=== PATIENT | female | born 1970 | race American Indian/Alaskan Native ===

== ENCOUNTER 2020-12-09 10:59 | Inpatient (IN) | payer SELFPAY ==
--- NOTE | 2020-12-09 11:35 | Emergency Department Report ---
ED General Adult HPI - General Chief complaint: Medical Clearance Stated complaint: medical clearance PUI?: No Time Seen by Provider: 12/09/20 11:25 Source: patient, RN notes reviewed Mode of arrival: Ambulatory Limitations: No Limitations - History of Present Illness Initial comments: The patient is a 50-year-old female. She is not known to myself previously. The patient reports that she is an alcoholic. The patient presents to the ER today with complaints of request for medical clearance. The patient states that she has had a rash and lesions on her bilateral lower extremities, which have been present for around 3 months. Her outpatient primary care doctor treated her presumptively for "folliculitis", with hydroxy zine, and Bactrim. However, the lesions have been constant. Lesions are pruritic. The patient also reports having outpatient laboratory studies drawn, which "showed low blood counts." The patient was thus referred to the emergency room for clearance. The patient denies headache, neck pain, chest pain, and abdominal pain. She is nauseous but not vomiting. She denies hematemesis and bright red blood per rectum. She denies urinary symptoms. She is not COVID-19 vaccinated. She drinks on a daily basis. Her last alcoholic beverage was yesterday. She is not homicidal or suicidal. -: Gradual, month(s) Location: left, right, lower extremity Severity scale (0 -10): 8 Quality: other (Bilateral lower extremity lesions are paretic) Consistency: intermittent Improves with: none Worsens with: none - Related Data Allergies Allergy/AdvReac Type Severity Reaction Status Date / Time No Known Allergies Allergy Unverified 12/09/20 11:18 ED Review of Systems ROS: Stated complaint: NUMBNESS IN LEGS Other details as noted in HPI Constitutional: denies: fever Eyes: denies: eye discharge ENT: denies: epistaxis Respiratory: denies: cough Cardiovascular: denies: chest pain Gastrointestinal: nausea, vomiting. denies: abdominal pain, hematemesis, melena, hematochezia Musculoskeletal: denies: myalgia Skin: rash, lesions, pruritus Neurological: weakness ED Past Medical Hx - Past Medical History Previous Medical History?: No - Social History Smoking Status: Current Every Day Smoker Substance Use Type: Alcohol ED Physical Exam - General Limitations: No Limitations General appearance: alert, in no apparent distress - Head Head exam: Present: atraumatic, normocephalic - Eye Eye exam: Present: normal appearance, EOMI. Absent: nystagmus - ENT ENT exam: Present: normal exam, normal orophraynx, mucous membranes moist, normal external ear exam - Neck Neck exam: Present: normal inspection, full ROM. Absent: tenderness, meningi smus - Respiratory Respiratory exam: Present: normal lung sounds bilaterally. Absent: respiratory distress, wheezes, rales, rhonchi, stridor, decreased breath sounds - Cardiovascular Cardiovascular Exam: Present: normal rhythm, tachycardia, normal heart sounds. Absent: bradycardia, irregular rhythm, systolic murmur, diastolic murmur, rubs, gallop - GI/Abdominal GI/Abdominal exam: Present: soft. Absent: distended, tenderness, guarding, rebound, rigid, pulsatile mass - Extremities Exam Extremities exam: Present: full ROM, other (2+ pulses noted in the bilateral upper and lower extremities. There is no palpable cord. negative Homans sign. Muscular compartments are soft. The pelvis is stable.). Absent: normal inspection (Nontender macules noted on the bilateral soles of the feet. There are nontender nonblanching papules or macules noted on the lower extremities and upper extremity), tenderness, pedal edema, calf tenderness - Back Exam Back exam: Present: normal inspection, full ROM. Absent: tenderness, CVA tenderness (R), CVA tenderness (L), paraspinal tenderness, vertebral tenderness - Neurological Exam Neurological exam: Present: alert, oriented X3, normal gait, other (No facial droop. Tongue midline. Extraocular movements intact bilaterally. Facial sensation intact to light touch in V1, V2, V3 distribution bilaterally. 5 and a 5 strength in 4 extremities. Sensation intact to light touch in 4 extremities.). Absent: motor sensory deficit - Psychiatric Psychiatric exam: Present: normal affect, normal mood - Skin Skin exam: Present: warm, rash ED Course Vital Signs 12/09/20 12/09/20 12/09/20 11:05 11:08 11:18 Temperature 98 F Pulse Rate 103 H Respiratory 20 19 Rate Blood Pressure 128/89 [Right] O2 Sat by Pulse 100 100 99 Oximetry 12/09/20 11:30 Temperature 98.0 F Pulse Rate 99 H Respiratory Rate Blood Pressure 136/99 [Right] O2 Sat by Pulse Oximetry - Reevaluation(s) Reevaluation #1: 12/09/20 12:44 Differential diagnosis, including but not limited to: Alcoholism, cirrhosis, hepatitis, syphilis, HIV, medical clearance, dehydration, electrolyte derangement, Assessment and plan: 50-year-old female, who is afebrile, clinically sober, with a GCS of 15, who presents to the ER today with a request for medical clearance. First complaint is nontender pruritic nonblanching lesions on her bilateral lower and upper extremities, also found to have painless macules on her bilateral feet. With the patient's permission, with lamination builder present, performed risk analysis for syphilis, HIV, and STI. The patient reports no intravenous drug use, reports that she is sexually active with 1 person. Has not been tested for hepatitis, syphilis, or HIV recently that she is aware of. Given that the rash is present for 3 months, does not appear to be acutely superinfected, does not appear to be acutely decompensated, outpatient follow-up at this time. Screening laboratory studies were obtained, demonstrated hypochloremia, hypokalemia, dehydration, and metabolic acidosis. EKG is pending at this time. IV fluids, potassium supplementation ordered. Banana bag ordered. Have recommended admission to the medical service for treatment of hypokalemia, dehydration, and hypochloremia. I discussed this with the patient and her lamination builder. The patient is agreeable to this plan of care. Hospital physician, Dr. Helen Rodriguez to admit patient to the medical service. Transaminitis is likely secondary to chronic alcoholism. 12/09/20 12:44 12/09/20 14:22 Patient reports not being able to tolerate pills. She has no facial numbness on my examination; V1, V2, V3 intact bilaterally. Nevertheless, she is not able to tolerate potassium chloride tablets. Contacted the pharmacy, and discussed with time, the pharmacist. Have verbally requested 40 M EQ of KCl liquid form, which the pharmacy tells me existing formulary, but I am not able to find it on C4[facility]. The pharmacist is also not able to find it. However, he tells me that he is able to accept a verbal order over the phone, and he will be able to shoot down 40 M EQ KCl in liquid form for the patient's consumption treatment. 12/09/20 15:18 Additional history obtained from nursing team, apparently, the patient endorsed difficulty with walking over the past few weeks. There is no history of trauma. On my examination, the patient has a nonfocal motor examination. 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 However, will order noncontrast CT scan of the brain. ED Medical Decision Making - Lab Data Result diagrams: 12/09/20 11:42 12/09/20 11:42 Vital Signs 12/09/20 12/09/20 12/09/20 11:05 11:08 11:18 Temperature 98 F Pulse Rate 103 H Respiratory 20 19 Rate Blood Pressure 128/89 [Right] O2 Sat by Pulse 100 100 99 Oximetry 12/09/20 11:30 Temperature 98.0 F Pulse Rate 99 H Respiratory Rate Blood Pressure 136/99 [Right] O2 Sat by Pulse Oximetry Lab Results 12/09/20 12/09/20 12/09/20 Range/Units 11:42 11:42 11:42 WBC 14.4 H (4.5-11.0) K/mm3 RBC 3.86 (3.65-5.03) M/mm3 Hgb 11.8 (10.1-14.3) gm/dl Hct 37.1 (30.3-42.9) % MCV 96 (79-97) fl MCH 31 (28-32) pg MCHC 32 (30-34) % RDW 16.2 H (13.2-15.2) % Plt Count 342 (140-440) K/mm3 Lymph % (Auto) 14.5 (13.4-35.0) % [place] % (Auto) 6.2 (0.0-7.3) % Eos % (Auto) 0.1 (0.0-4.3) % Baso % (Auto) 0.3 (0.0-1.8) % Lymph # (Auto) 2.1 (1.2-5.4) K/mm3 [place] # (Auto) 0.9 H (0.0-0.8) K/mm3 Eos # (Auto) 0.0 (0.0-0.4) K/mm3 Baso # (Auto) 0.0 (0.0-0.1) K/mm3 Seg Neutrophils % 78.9 H (40.0-70.0) % Seg Neutrophils # 11.3 H (1.8-7.7) K/mm3 PT 15.7 H (12.2-14.9) Sec. INR 1.13 (0.87-1.13) APTT 34.8 (24.2-36.6) Sec. Sodium 134 L (137-145) mmol/L Potassium 2.3 L* (3.6-5.0) mmol/L Chloride 82.1 L (98-107) mmol/L Carbon Dioxide 33 H (22-30) mmol/L Anion Gap 21 mmol/L BUN 5 L (7-17) mg/dL Creatinine 0.3 L (0.6-1.2) mg/dL Estimated GFR > 60 ml/min BUN/Creatinine Ratio 17 % Glucose 97 (65-100) mg/dL Calcium 8.6 (8.4-10.2) mg/dL Magnesium 2.00 (1.7-2.3) mg/dL Total Bilirubin 1.20 (0.1-1.2) mg/dL AST 84 H (5-40) units/L ALT 29 (7-56) units/L Alkaline Phosphatase 259 H (35-129) units/L Total Creatine Kinase 26 L (30-135) units/L Total Protein 6.8 (6.3-8.2) g/dL Albumin 3.0 L (3.9-5) g/dL Albumin/Globulin Ratio 0.8 % TSH (0.270-4.200) mlU/mL HCG, Quant (0-4) mIU/mL Salicylates (2.8-20.0) mg/dL Acetaminophen (10.0-30.0) ug/mL 12/09/20 12/09/20 12/09/20 Range/Units 11:42 11:42 11:42 WBC (4.5-11.0) K/mm3 RBC (3.65-5.03) M/mm3 Hgb (10.1-14.3) gm/dl Hct (30.3-42.9) % MCV (79-97) fl MCH (28-32) pg MCHC (30-34) % RDW (13.2-15.2) % Plt Count (140-440) K/mm3 Lymph % (Auto) (13.4-35.0) % [place] % (Auto) (0.0-7.3) % Eos % (Auto) (0.0-4.3) % Baso % (Auto) (0.0-1.8) % Lymph # (Auto) (1.2-5.4) K/mm3 [place] # (Auto) (0.0-0.8) K/mm3 Eos # (Auto) (0.0-0.4) K/mm3 Baso # (Auto) (0.0-0.1) K/mm3 Seg Neutrophils % (40.0-70.0) % Seg Neutrophils # (1.8-7.7) K/mm3 PT (12.2-14.9) Sec. INR (0.87-1.13) APTT (24.2-36.6) Sec. Sodium (137-145) mmol/L Potassium (3.6-5.0) mmol/L Chloride (98-107) mmol/L Carbon Dioxide (22-30) mmol/L Anion Gap mmol/L BUN (7-17) mg/dL Creatinine (0.6-1.2) mg/dL Estimated GFR ml/min BUN/Creatinine Ratio % Glucose (65-100) mg/dL Calcium (8.4-10.2) mg/dL Magnesium (1.7-2.3) mg/dL Total Bilirubin (0.1-1.2) mg/dL AST (5-40) units/L ALT (7-56) units/L Alkaline Phosphatase (35-129) units/L Total Creatine Kinase (30-135) units/L Total Protein (6.3-8.2) g/dL Albumin (3.9-5) g/dL Albumin/Globulin Ratio % TSH 1.150 (0.270-4.200) mlU/mL HCG, Quant (0-4) mIU/mL Salicylates 1.9 L (2.8-20.0) mg/dL Acetaminophen 5.0 L (10.0-30.0) ug/mL 12/09/20 Range/Units 11:42 WBC (4.5-11.0) K/mm3 RBC (3.65-5.03) M/mm3 Hgb (10.1-14.3) gm/dl Hct (30.3-42.9) % MCV (79-97) fl MCH (28-32) pg MCHC (30-34) % RDW (13.2-15.2) % Plt Count (140-440) K/mm3 Lymph % (Auto) (13.4-35.0) % [place] % (Auto) (0.0-7.3) % Eos % (Auto) (0.0-4.3) % Baso % (Auto) (0.0-1.8) % Lymph # (Auto) (1.2-5.4) K/mm3 [place] # (Auto) (0.0-0.8) K/mm3 Eos # (Auto) (0.0-0.4) K/mm3 Baso # (Auto) (0.0-0.1) K/mm3 Seg Neutrophils % (40.0-70.0) % Seg Neutrophils # (1.8-7.7) K/mm3 PT (12.2-14.9) Sec. INR (0.87-1.13) APTT (24.2-36.6) Sec. Sodium (137-145) mmol/L Potassium (3.6-5.0) mmol/L Chloride (98-107) mmol/L Carbon Dioxide (22-30) mmol/L Anion Gap mmol/L BUN (7-17) mg/dL Creatinine (0.6-1.2) mg/dL Estimated GFR ml/min BUN/Creatinine Ratio % Glucose (65-100) mg/dL Calcium (8.4-10.2) mg/dL Magnesium (1.7-2.3) mg/dL Total Bilirubin (0.1-1.2) mg/dL AST (5-40) units/L ALT (7-56) units/L Alkaline Phosphatase (35-129) units/L Total Creatine Kinase (30-135) units/L Total Protein (6.3-8.2) g/dL Albumin (3.9-5) g/dL Albumin/Globulin Ratio % TSH (0.270-4.200) mlU/mL HCG, Quant 2.97 (0-4) mIU/mL Salicylates (2.8-20.0) mg/dL Acetaminophen (10.0-30.0) ug/mL - EKG Data -: EKG Interpreted by Mt EKG shows normal: sinus rhythm Rate: normal - EKG Data When compared to previous EKG there are: previous EKG unavailable 12/09/20 12:47 The EKG is interpreted at 12: 4 4 Sinus rhythm, rate 90 bpm. There is a leftward axis deviation. There is a left anterior fascicular block. There is a normal P wave axis. There is motion artifact. Atrial enlargement. Abnormal EKG. Not a STEMI. No prior for [facility] analion. Critical care attestation.: If time is entered above; I have spent that time in minutes in the direct care of this critically ill patient, excluding procedure time. ED Disposition Clinical Impression: Hypokalemia, Transaminitis, Hypochloremia, Dehydration, Skin rash Disposition: ADMITTED INPATIENT Is pt being admited?: Yes Does the pt Need Aspirin: No Condition: Good
[2020-12-09 12:20] LABS: Basophils % (Auto) 0.3 % (0.0-1.8); Eosinophils % (Auto) 0.1 % (0.0-4.3); Hematocrit 37.1 % (30.3-42.9); Hemoglobin 11.8 gm/dl (10.1-14.3); Lymphocytes # (Auto) 2.1 K/mm3 (1.2-5.4); Lymphocytes % (Auto) 14.5 % (13.4-35.0); Mean Corpuscular HGB Conc 32 % (30-34); Mean Corpuscular Volume 96 fl (79-97); Monocytes # (Auto) 0.9 K/mm3 (0.0-0.8); Monocytes % (Auto) 6.2 % (0.0-7.3); Platelet Count 342 K/mm3 (140-440); Red Blood Count 3.86 M/mm3 (3.65-5.03); Red Cell Distribution Width 16.2 % (13.2-15.2)
[2020-12-09 12:25] LABS: Alanine Aminotransferase 29 units/L (7-56); Blood Urea Nitrogen 5 mg/dL (7-17); Calcium 8.6 mg/dL (8.4-10.2); Hemolysis Index 22
[2020-12-09 12:26] LABS: BUN/Creatinine Ratio 17
[2020-12-09 12:37] LABS: INR 1.13 (0.87-1.13)
[2020-12-09] MEDS ORDERED: POTASSIUM CHLORIDE ER 20 MEQ TAB PO ONE (12:37)
[2020-12-09] MEDS ORDERED: LACTATED RINGERS 1,000 ML IV ONE (12:37)
[2020-12-09 12:38] LABS: Partial Thromboplastin Time 34.8 Sec. (24.2-36.6)
[2020-12-09] MEDS ORDERED: LORazepam 2 MG/ML VIAL IV PRN ×2 (12:43)
[2020-12-09] MEDS ORDERED: THIAMINE 100 MG, FOLIC ACID 1 MG, MULTIPLE VITAMIN INJ, ADULT 10 ML in SODIUM CHLORIDE ... IV ONE (13:37)
[2020-12-09] MEDS: POTASSIUM CHLORIDE 10 MEQ 10 MEQ/100 ML BAG IV SCH ×4 (14:15→20:22)
[2020-12-09] MEDS ORDERED: POTASSIUM CHLORIDE 20 MEQ PACKET PO ONE (15:00)
--- NOTE | 2020-12-09 16:41 | Cat Scan Report ---
CT HEAD WITHOUT CONTRAST INDICATION / CLINICAL INFORMATION: weakness, reportely cant walk. TECHNIQUE: All CT scans at this location are performed using CT dose reduction for ALARA by means of automated e xposure control. COMPARISON: None available. FINDINGS: HEMORRHAGE: No evidence of intracranial hemorrhage or extra-axial fluid collection. EXTRA-AXIAL SPACES: Cortical sulci, sylvian fissures and basilar cisterns have an unremarkable appear ance. VENTRICULAR SYSTEM: The third and lateral ventricles are of normal size and configuration. CEREBRAL PARENCHYMA: No areas of abnormal brain parenchymal attenuation are identified. There is no i ndication of recent infarction. MIDLINE SHIFT OR HERNIATION: There is no mass effect. CEREBELLUM / BRAINSTEM: Brainstem and cerebellum have an unremarkable appearance. MIDLINE STRUCTURES:No abnormalities of the pituitary gland or pineal region are identified. INTRACRANIAL VESSELS:No abnormalities are identified on this noncontrast head CT. ORBITS: visualized portions of the orbits have an unremarkable appearance. SOFT TISSUES of HEAD: No significant abnormality. CALVARIUM: Evaluation of bone windows reveals no abnormalities. PARANASAL SINUSES / MASTOID AIR CELLS: Visualized portions of the paranasal sinuses are free from inf lammatory mucosal disease. Mastoid air cells are normally pneumatized. ADDITIONAL FINDINGS: Note is made of ossification of the falx in the anterior interhemispheric fissur e.. IMPRESSION: 1. No acute intracranial abnormality. Signer Name: Vu Glover MD Signed: 12/09/2020 4:37 PM Workstation Name: [id number]
[2020-12-09] MEDS ORDERED: METOCLOPRAMIDE 10 MG/2 ML INJ IV PRN (17:51)
[2020-12-09] MEDS ORDERED: oxyCODONE /ACETAMINOPHEN 5-325MG TAB PO PRN (17:51)
[2020-12-09] MEDS ORDERED: ONDANSETRON 4 MG/2 ML INJ IV PRN (17:51)
[2020-12-09] MEDS ORDERED: HALOPERIDOL LACTATE 5 MG/1 ML INJ IV PRN (17:54)
--- NOTE | 2020-12-09 17:56 | History and Physical Report ---
History of Present Illness Date of examination: 12/09/20 Date of admission: 12/09/20 12:47 Chief complaint: Unsteady while walking History of present illness: The patient states that she has had a rash and lesions on her bilateral lower extremities, which have been present for around 3 months. Her outpatient primary care doctor treated her presumptively for "folliculitis", with hydroxyzine, and Bactrim. However, the lesions have been constant. Lesions are pruritic. The patient also reports having outpatient laboratory studies drawn, which "showed low blood counts." The patient was thus referred to the emergency room for clearance. The patient denies headache, neck pain, chest pain, and abdominal pain. She is nauseous but not vomiting. She denies hematemesis and bright red blood per rectum. She denies urinary symptoms. She is not COVID-19 vaccinated. She drinks on a daily basis. Her last alcoholic beverage was yesterday. Also excessive alcohol use the last 20 years. Patient had 2 mixed drinks last night. Alcohol breath during my examination. Feels unsteady while walking Review of Systems ROS: Stated complaint: NUMBNESS IN LEGS Other details as noted in HPI Constitutional: denies: fever Eyes: denies: eye discharge ENT: denies: epistaxis Respiratory: denies: cough Cardiovascular: denies: chest pain Gastrointestinal: nausea, vomiting. denies: abdominal pain, hematemesis, melena, hematochezia Musculoskeletal: denies: myalgia Skin: rash, lesions, pruritus Neurological: weakness Medications and Allergies Allergies Allergy/AdvReac Type Severity Reaction Status Date / Time No Known Allergies Allergy Unverified 12/09/20 11:18 Active Meds: Active Medications Lorazepam (Lorazepam 2 Mg/Ml Vial) 2 mg IV Q1HR PRN PRN Reason: CIWA-Ar 8-15 Lorazepam (Lorazepam 2 Mg/Ml Vial) 4 mg IV Q1HR PRN PRN Reason: CIWA-Ar 16-25 Lorazepam (Lorazepam 2 Mg/Ml Vial) 4 mg IV Q15MIN PRN PRN Reason: CIWA-Ar >25 Exam - Constitutional Vitals: Temp Pulse Resp BP Pulse Ox 98.0 F 99 H 19 136/99 99 12/09/20 11:30 12/09/20 11:30 12/09/20 11:08 12/09/20 11:30 12/09/20 11:18 General appearance: Present: no acute distress, well-nourished - EENT Eyes: Present: PERRL ENT: hearing intact, clear oral mucosa - Neck Neck: Present: supple, normal ROM - Respiratory Respiratory effort: normal Respiratory: bilateral: CTA - Cardiovascular Heart Sounds: Present: S1 & S2. Absent: rub, click - Extremities Extremities: pulses symmetrical, No edema Peripheral Pulses: within normal limits - Abdominal General gastrointestinal: Present: soft, non-tender, non-distended, normal bowel sounds Female genitourinary: Present: normal - Integumentary Integumentary: Present: clear, warm, dry - Musculoskeletal Musculoskeletal: gait normal, strength equal bilaterally - Psychiatric Psychiatric: appropriate mood/affect, intact judgment & insight - Neurologic Neurologic: CNII-XII intact, moves all extremities Results - Labs CBC & Chem 7: 12/10/20 04:17 12/10/20 04:17 Labs: Laboratory Last Values WBC 14.4 K/mm3 (4.5-11.0) H 12/09/20 11:42 RBC 3.86 M/mm3 (3.65-5.03) 12/09/20 11:42 Hgb 11.8 gm/dl (10.1-14.3) 12/09/20 11:42 Hct 37.1 % (30.3-42.9) 12/09/20 11:42 MCV 96 fl (79-97) 12/09/20 11:42 MCH 31 pg (28-32) 12/09/20 11:42 MCHC 32 % (30-34) 12/09/20 11:42 RDW 16.2 % (13.2-15.2) H 12/09/20 11:42 Plt Count 342 K/mm3 (140-440) 12/09/20 11:42 Lymph % (Auto) 14.5 % (13.4-35.0) 12/09/20 11:42 [place] % (Auto) 6.2 % (0.0-7.3) 12/09/20 11:42 Eos % (Auto) 0.1 % (0.0-4.3) 12/09/20 11:42 Baso % (Auto) 0.3 % (0.0-1.8) 12/09/20 11:42 Lymph # (Auto) 2.1 K/mm3 (1.2-5.4) 12/09/20 11:42 [place] # (Auto) 0.9 K/mm3 (0.0-0.8) H 12/09/20 11:42 Eos # (Auto) 0.0 K/mm3 (0.0-0.4) 12/09/20 11:42 Baso # (Auto) 0.0 K/mm3 (0.0-0.1) 12/09/20 11:42 Seg Neutrophils % 78.9 % (40.0-70.0) H 12/09/20 11:42 Seg Neutrophils # 11.3 K/mm3 (1.8-7.7) H 12/09/20 11:42 PT 15.7 Sec. (12.2-14.9) H 12/09/20 11:42 INR 1.13 (0.87-1.13) 12/09/20 11:42 APTT 34.8 Sec. (24.2-36.6) 12/09/20 11:42 Sodium 134 mmol/L (137-145) L 12/09/20 11:42 Potassium 2.3 mmol/L (3.6-5.0) L* 12/09/20 11:42 Chloride 82.1 mmol/L (98-107) L 12/09/20 11:42 Carbon Dioxide 33 mmol/L (22-30) H 12/09/20 11:42 Anion Gap 21 mmol/L 12/09/20 11:42 BUN 5 mg/dL (7-17) L 12/09/20 11:42 Creatinine 0.3 mg/dL (0.6-1.2) L 12/09/20 11:42 Estimated GFR > 60 ml/min 12/09/20 11:42 BUN/Creatinine Ratio 17 % 12/09/20 11:42 Glucose 97 mg/dL (65-100) 12/09/20 11:42 Calcium 8.6 mg/dL (8.4-10.2) 12/09/20 11:42 Magnesium 2.00 mg/dL (1.7-2.3) 12/09/20 11:42 Total Bilirubin 1.20 mg/dL (0.1-1.2) 12/09/20 11:42 AST 84 units/L (5-40) H 12/09/20 11:42 ALT 29 units/L (7-56) 12/09/20 11:42 Alkaline Phosphatase 259 units/L (35-129) H 12/09/20 11:42 Total Creatine Kinase 26 units/L (30-135) L 12/09/20 11:42 Total Protein 6.8 g/dL (6.3-8.2) 12/09/20 11:42 Albumin 3.0 g/dL (3.9-5) L 12/09/20 11:42 Albumin/Globulin Ratio 0.8 % 12/09/20 11:42 TSH 1.150 mlU/mL (0.270-4.200) 12/09/20 11:42 HCG, Quant 2.97 mIU/mL (0-4) 12/09/20 11:42 Salicylates 1.9 mg/dL (2.8-20.0) L 12/09/20 11:42 Acetaminophen 5.0 ug/mL (10.0-30.0) L 12/09/20 11:42 Plasma/Serum Alcohol < 0.01 % (0-0.07) 12/09/20 11:42 Short CBC 12/09/20 12/10/20 Range/Units 11:42 04:17 WBC 14.4 H 14.4 H (4.5-11.0) K/mm3 Hgb 11.8 10.4 (10.1-14.3) gm/dl Hct 37.1 33.0 (30.3-42.9) % Plt Count 342 326 (140-440) K/mm3 [facility] 12/09/20 12/10/20 11:42 04:17 Sodium 134 L 139 Potassium 2.3 L* 2.4 L* Chloride 82.1 L 92.5 L Carbon Dioxide 33 H 31 H BUN 5 L 3 L Creatinine 0.3 L 0.3 L Glucose 97 90 Calcium 8.6 8.1 L Cardiac Enzymes 12/09/20 Range/Units 11:42 Total Creatine Kinase 26 L (30-135) units/L Liver Function 12/09/20 12/09/20 12/10/20 Range/Units 11:42 18:22 04:17 Total Bilirubin 1.20 1.30 H (0.1-1.2) mg/dL AST 84 H 70 H (5-40) units/L ALT 29 23 (7-56) units/L Alkaline Phosphatase 259 H 232 H (35-129) units/L Albumin 3.0 L 2.8 L 2.6 L (3.9-5) g/dL Assessment and Plan Advance Directives: Yes (Full code) VTE prophylaxis?: Chemical Plan of care discussed with patient/family: Yes - Patient Problems (1) DTs (delirium tremens) Current Visit: Yes Status: Acute Plan to address problem: Patient initiated on CIWA protocol IV fluids Banana bag (2) Dehydration Current Visit: Yes Status: Acute Plan to address problem: IV fluids for now (3) Hypokalemia Current Visit: Yes Status: Acute Plan to address problem: Supplemented aggressively (4) Transaminitis Current Visit: Yes Status: Acute Plan to address problem: Check acute hepatitis profile Probably secondary to excessive alcohol use (5) EtOH dependence Current Visit: Yes Status: Acute Plan to address problem: Mental health consult Patient requires outpatient/inpatient rehab for alcohol use (6) Folliculitis Current Visit: Yes Status: Acute Plan to address problem: Oral Bactrim for now (7) DVT prophylaxis Current Visit: Yes Status: Acute Plan to address problem: On heparin and GI prophylaxis
[2020-12-09 18:47] LABS: Albumin 2.8 g/dL (3.9-5)
[2020-12-09] MEDS: POTASSIUM CHLORIDE ER 20 MEQ TAB PO SCH (19:03)
[2020-12-09] MEDS: LORazepam 2 MG/ML VIAL IV PRN (20:02)
[2020-12-09] MEDS ORDERED: SODIUM CHLORIDE 0.9% 1000 ML 1,000 ML ONE (20:26)
[2020-12-09] MEDS: D5W/0.9% NACL 1,000 ML IV SCH (23:45)
[2020-12-10] MEDS: POTASSIUM CHLORIDE 10 MEQ 10 MEQ/100 ML BAG IV SCH ×14 (00:32→23:41)
[2020-12-10] MEDS: POTASSIUM CHLORIDE ER 20 MEQ TAB PO SCH ×2 (00:34→02:00)
[2020-12-10] MEDS: FAMOTIDINE 20 MG/2 ML INJ IV SCH ×3 (00:38→21:39)
[2020-12-10] MEDS: HEPARIN 5,000 UNIT/1 ML VIAL SUB-Q SCH ×3 (00:38→21:39)
[2020-12-10] MEDS: HYDROmorphone 1 MG/1 ML INJ IV PRN ×2 (02:49→21:40)
[2020-12-10 05:29] LABS: Basophils % (Auto) 0.3 % (0.0-1.8); Eosinophils # (Auto) 0.1 K/mm3 (0.0-0.4); Eosinophils % (Auto) 0.4 % (0.0-4.3); Hemoglobin 10.4 gm/dl (10.1-14.3); Lymphocytes # (Auto) 2.3 K/mm3 (1.2-5.4); Mean Corpuscular HGB Conc 32 % (30-34); Mean Corpuscular Volume 96 fl (79-97); Monocytes % (Auto) 7.1 % (0.0-7.3); Platelet Count 326 K/mm3 (140-440); Red Blood Count 3.44 M/mm3 (3.65-5.03); Red Cell Distribution Width 16.3 % (13.2-15.2)
[2020-12-10 05:41] LABS: Alanine Aminotransferase 23 units/L (7-56); Albumin 2.6 g/dL (3.9-5); Blood Urea Nitrogen 3 mg/dL (7-17); Calcium 8.1 mg/dL (8.4-10.2); Hemolysis Index 18
[2020-12-10 05:48] LABS: BUN/Creatinine Ratio 10
--- NOTE | 2020-12-10 09:31 | Electrocardiograph Report ---
[facility] Test Date: 2020-12-09 Test Time: 12:44:40 Pat Name: BRENDA KUNZ Department: Room: A470 Gender: F [employer] Ax Consultant: ROSETTA : 1970 Requested By: PHILIPPE RICHARDS Order Number: [id number] Reading MD: Dennis Martínez Measurements Intervals [place] Rate: 90 P: 62 AR: 140 QRS: -23 QRSD: 80 T: 191 QT: 405 QTc: 493 Interpretive Statements Sinus rhythm Ventricular premature complex nonspecific st-t Probable left atrial enlargement No previous ECG available for comparison Electronically Signed On 12-10-2020 9:31:29 EDT by Dennis Martínez
[2020-12-10] MEDS: POTASSIUM CHLORIDE 20 MEQ PACKET FEEDTUBE SCH (11:12)
--- NOTE | 2020-12-10 11:16 | Consultation ---
History of Present Illness - Reason for Consult Consult date: 12/10/20 Reason for consult: ETOH - History of Present Psychiatric Illness The patient was seen today. Her spouse is at bedside and she gives me permission to speak in front of him. The patient says the only psych history she has is alcohol abuse. She says her last drink was yesterday. She says she normally drinks 2 to 3 cocktails daily. She says if she doesn't drink she starts shaking. The patient is calm during the visit. She is pleasant and cooperative. She denies being SI/HI or having hallucinations of any kind. PAST PSYCHIATRIC HISTORY: Diagnoses: Alcohol Suicide attempts or Self-harm behavior: Denies Prior psychiatric hospitalizations: Detox Substance Abuse history: ETOH Previous psychiatric medications tried: Denies Outpatient treatment: Denies PAST MEDICAL HISTORY: None reported or document Family Psychiatric History: None reported or documented SOCIAL HISTORY Marital Status: Living Arrangements: with spouse Employment Status: unemployed Access to guns/weapons: Denies Education: History of Abuse: Denies Legal History: unknown REVIEW OF SYSTEMS Constitutional: Negative for weight loss ENT: Negative for stridor Respiratory: Negative for cough or hemoptysis All other systems reviewed and are negative MENTAL STATUS EXAMINATION General Appearance and Behavior: Age appropriate, good hygiene, wearing appropriate clothes. calm, cooperative Cooperation: Cooperative Psychomotor Behavior: Psychomotor normal Mood: "I feel alright" Affect and affective range: congruent with stated mood Thought Process: goal directed Thought Content: None Speech: normal tone and pace Suicidal Ideation: Denies Homicidal Ideation: Denies Hallucinations: Denies Delusions: None elicited Impulse Control: Limited Insight and Judgment: Limited Memory: Limited Attention: attentive Orientation: a/o x 3 Assessment (1)Alcohol Dependence Current Visit: Yes Status: Acute Treatment Plan Agree with CIWA Continue previously prescribed medications and follow up with outpatient psychiatry in 7 to 10 days upon discharge. The patient to comply with previously prescribed medications Risks, benefits and alternatives of medications discussed with the patient, questions answered and consent obtained from patient. PSYCHOTHERAPY: Supportive psychotherapy provided MEDICAL: Per primary team DELIRIUM PRECAUTIONS: Please re-orient patient frequently, keep lights on during the day, and minimize benzodiazepines and opiates as these medications could worsen patient's confusion. RN INVASIVE: Defer to primary DISPOSITION: Do not recommend acute psychiatric inpatient treatment. The sitter to give the patient resources and safety plan The patient to comply with treatment regimen and abstain from all illicit drug use. FOLLOW-UP: Will sign off Case staffed with Dr. Lomas Medications and Allergies Allergies Allergy/AdvReac Type Severity Reaction Status Date / Time No Known Allergies Allergy Unverified 12/09/20 11:18 Active Meds: Active Medications Acetaminophen (Acetaminophen 325 Mg Tab) 650 mg PO Q4H PRN PRN Reason: Pain MILD(1-3)/Fever >100.5/RENE Famotidine (Famotidine 20 Mg/2 Ml Inj) 20 mg IV BID [facility] Last Admin: 12/10/20 11:12 Dose: 20 mg Documented by: Haloperidol Lactate (Haloperidol Lactate 5 Mg/1 Ml Inj) 5 mg IV Q1H PRN PRN Reason: Unrespon. to mult. doses BZD's Heparin Sodium (Porcine) (Heparin 5,000 Unit/1 Ml Vial) 5,000 unit SUB-Q Q12HR [facility] Last Admin: 12/10/20 11:12 Dose: 5,000 unit Documented by: Hydromorphone HCl (Hydromorphone 1 Mg/1 Ml Inj) 0.5 mg IV Q3H PRN PRN Reason: Pain , Severe (7-10) Last Admin: 12/10/20 02:49 Dose: 0.5 mg Documented by: Dextrose/Sodium Chloride (D5ns) 1,000 mls @ 100 mls/hr IV DIRECT [facility] Last Admin: 12/09/20 23:45 Dose: 100 mls/hr Documented by: Potassium Chloride (Kcl 10meq/100ml) 10 meq in 100 mls @ 100 mls/hr IV Q1H [facility] Stop: 12/10/20 14:29 Lorazepam (Lorazepam 2 Mg/Ml Vial) 2 mg IV Q1HR PRN PRN Reason: CIWA-Ar 8-15 Last Admin: 12/09/20 20:02 Dose: 2 mg Documented by: Lorazepam (Lorazepam 2 Mg/Ml Vial) 4 mg IV Q1HR PRN PRN Reason: CIWA-Ar 16-25 Lorazepam (Lorazepam 2 Mg/Ml Vial) 4 mg IV Q15MIN PRN PRN Reason: CIWA-Ar >25 Metoclopramide HCl (Metoclopramide 10 Mg/2 Ml Inj) 10 mg IV Q6H PRN PRN Reason: Nausea And Vomiting Ondansetron HCl (Ondansetron 4 Mg/2 Ml Inj) 4 mg IV Q8H PRN PRN Reason: Nausea And Vomiting Oxycodone/Acetaminophen (Oxycodone /Acetaminophen 5-325mg Tab) 1 tab PO Q6H PRN PRN Reason: Pain, Moderate (4-6) Potassium Chloride (Potassium Chloride 20 Meq Packet) 40 meq FEEDTUBE QDAY [facility] Last Admin: 12/10/20 11:12 Dose: 40 meq Documented by: Sodium Chloride (Sodium Chloride 0.9% 10 Ml Flush Syringe) 10 ml IV BID [facility] Last Admin: 12/10/20 00:38 Dose: 10 ml Documented by: Sodium Chloride (Sodium Chloride 0.9% 10 Ml Flush Syringe) 10 ml IV PRN PRN PRN Reason: LINE FLUSH Mental Status Exam - Vital signs Last Vital Signs Temp 98.4 F 12/10/20 04:37 Pulse 87 12/10/20 04:37 Resp 18 12/10/20 04:37 BP 116/78 12/10/20 04:37 Pulse Ox 97 12/10/20 04:37 Results Result Diagrams: 12/10/20 04:17 12/10/20 04:17 Abnormal lab results 12/09/20 12/09/20 12/09/20 Range/Units 11:42 11:42 11:42 WBC 14.4 H (4.5-11.0) K/mm3 RBC (3.65-5.03) M/mm3 RDW 16.2 H (13.2-15.2) % [place] # (Auto) 0.9 H (0.0-0.8) K/mm3 Seg Neutrophils % 78.9 H (40.0-70.0) % Seg Neutrophils # 11.3 H (1.8-7.7) K/mm3 PT 15.7 H (12.2-14.9) Sec. Sodium 134 L (137-145) mmol/L Potassium 2.3 L* (3.6-5.0) mmol/L Chloride 82.1 L (98-107) mmol/L Carbon Dioxide 33 H (22-30) mmol/L BUN 5 L (7-17) mg/dL Creatinine 0.3 L (0.6-1.2) mg/dL Calcium (8.4-10.2) mg/dL Phosphorus (2.5-4.5) mg/dL Total Bilirubin (0.1-1.2) mg/dL AST 84 H (5-40) units/L Alkaline Phosphatase 259 H (35-129) units/L Ammonia (25-60) umol/L Total Creatine Kinase 26 L (30-135) units/L Total Protein (6.3-8.2) g/dL Albumin 3.0 L (3.9-5) g/dL Salicylates (2.8-20.0) mg/dL Acetaminophen (10.0-30.0) ug/mL 12/09/20 12/09/20 12/09/20 Range/Units 11:42 11:42 18:22 WBC (4.5-11.0) K/mm3 RBC (3.65-5.03) M/mm3 RDW (13.2-15.2) % [place] # (Auto) (0.0-0.8) K/mm3 Seg Neutrophils % (40.0-70.0) % Seg Neutrophils # (1.8-7.7) K/mm3 PT (12.2-14.9) Sec. Sodium (137-145) mmol/L Potassium (3.6-5.0) mmol/L Chloride (98-107) mmol/L Carbon Dioxide (22-30) mmol/L BUN (7-17) mg/dL Creatinine (0.6-1.2) mg/dL Calcium (8.4-10.2) mg/dL Phosphorus 1.60 L (2.5-4.5) mg/dL Total Bilirubin (0.1-1.2) mg/dL AST (5-40) units/L Alkaline Phosphatase (35-129) units/L Ammonia (25-60) umol/L Total Creatine Kinase (30-135) units/L Total Protein (6.3-8.2) g/dL Albumin 2.8 L (3.9-5) g/dL Salicylates 1.9 L (2.8-20.0) mg/dL Acetaminophen 5.0 L (10.0-30.0) ug/mL 12/09/20 12/10/20 12/10/20 Range/Units 18:22 04:17 04:17 WBC 14.4 H (4.5-11.0) K/mm3 RBC 3.44 L (3.65-5.03) M/mm3 RDW 16.3 H (13.2-15.2) % [place] # (Auto) 1.0 H (0.0-0.8) K/mm3 Seg Neutrophils % 76.2 H (40.0-70.0) % Seg Neutrophils # 10.9 H (1.8-7.7) K/mm3 PT (12.2-14.9) Sec. Sodium (137-145) mmol/L Potassium 2.4 L* (3.6-5.0) mmol/L Chloride 92.5 L (98-107) mmol/L Carbon Dioxide 31 H (22-30) mmol/L BUN 3 L (7-17) mg/dL Creatinine 0.3 L (0.6-1.2) mg/dL Calcium 8.1 L (8.4-10.2) mg/dL Phosphorus (2.5-4.5) mg/dL Total Bilirubin 1.30 H (0.1-1.2) mg/dL AST 70 H (5-40) units/L Alkaline Phosphatase 232 H (35-129) units/L Ammonia 81.0 H (25-60) umol/L Total Creatine Kinase (30-135) units/L Total Protein 5.7 L (6.3-8.2) g/dL Albumin 2.6 L (3.9-5) g/dL Salicylates (2.8-20.0) mg/dL Acetaminophen (10.0-30.0) ug/mL All other labs normal.
--- NOTE | 2020-12-10 16:25 | Progress Note ---
Assessment and Plan - Patient Problems (1) DTs (delirium tremens) Current Visit: Yes Status: Acute Plan to address problem: Patient initiated on CIWA protocol IV fluids Banana bag (2) Dehydration Current Visit: Yes Status: Acute Plan to address problem: IV fluids for now (3) Hypokalemia Current Visit: Yes Status: Acute Plan to address problem: Supplemented aggressively (4) Transaminitis Current Visit: Yes Status: Acute Plan to address problem: Check acute hepatitis profile Probably secondary to excessive alcohol use (5) EtOH dependence Current Visit: Yes Status: Acute Plan to address problem: Mental health consult Patient requires outpatient/inpatient rehab for alcohol use (6) Folliculitis Current Visit: Yes Status: Acute Plan to address problem: Oral Bactrim for now (7) DVT prophylaxis Current Visit: Yes Status: Acute Plan to address problem: On heparin and GI prophylaxis Subjective Date of service: 12/10/20 Principal diagnosis: Delirium tremens, hypokalemia, peripheral neuropathy Interval history: Patient admitted with severe EtOH dependence, hypokalemia with potassium of around 2.4 and severe peripheral neuropathy and folliculitis. 12/10/2020 patient doing better Potassium is still low Objective - Constitutional Vitals: Vital Signs - 12hr 12/10/20 12/10/20 04:37 10:00 Temperature 98.4 F Pulse Rate 87 87 Respiratory 18 Rate Blood Pressure 116/78 O2 Sat by Pulse 97 Oximetry General appearance: Present: no acute distress, well-nourished - EENT Eyes: PERRL, EOM intact ENT: hearing intact, clear oral mucosa Ears: bilateral: normal - Neck Neck: supple, normal ROM - Respiratory Respiratory effort: normal Respiratory: bilateral: CTA - Breasts Breasts: normal - Cardiovascular Heart rate: 78 Rhythm: regular Heart Sounds: Present: S1 & S2. Absent: gallop, rub Extremities: pulses intact, No edema, normal color, Full ROM - Gastrointestinal General gastrointestinal: Present: soft, non-tender, non-distended, normal bowel sounds - Genitourinary Female genitourinary: normal - Integumentary Integumentary: clear, warm, dry - Musculoskeletal Musculoskeletal: 1, strength equal bilaterally - Neurologic Neurologic: moves all extremities - Psychiatric Psychiatric: memory intact, appropriate mood/affect, intact judgment & insight - Labs CBC & Chem 7: 12/11/20 04:57 12/11/20 04:57 Labs: Abnormal lab results 12/09/20 12/09/20 12/10/20 Range/Units 18:22 18:22 04:17 WBC 14.4 H (4.5-11.0) K/mm3 RBC 3.44 L (3.65-5.03) M/mm3 RDW 16.3 H (13.2-15.2) % [place] # (Auto) 1.0 H (0.0-0.8) K/mm3 Seg Neutrophils % 76.2 H (40.0-70.0) % Seg Neutrophils # 10.9 H (1.8-7.7) K/mm3 Potassium (3.6-5.0) mmol/L Chloride (98-107) mmol/L Carbon Dioxide (22-30) mmol/L BUN (7-17) mg/dL Creatinine (0.6-1.2) mg/dL POC Glucose (70-105) mg/dL Calcium (8.4-10.2) mg/dL Phosphorus 1.60 L (2.5-4.5) mg/dL Total Bilirubin (0.1-1.2) mg/dL AST (5-40) units/L Alkaline Phosphatase (35-129) units/L Ammonia 81.0 H (25-60) umol/L Total Protein (6.3-8.2) g/dL Albumin 2.8 L (3.9-5) g/dL 12/10/20 12/10/20 12/10/20 Range/Units 04:17 11:27 16:14 WBC (4.5-11.0) K/mm3 RBC (3.65-5.03) M/mm3 RDW (13.2-15.2) % [place] # (Auto) (0.0-0.8) K/mm3 Seg Neutrophils % (40.0-70.0) % Seg Neutrophils # (1.8-7.7) K/mm3 Potassium 2.4 L* (3.6-5.0) mmol/L Chloride 92.5 L (98-107) mmol/L Carbon Dioxide 31 H (22-30) mmol/L BUN 3 L (7-17) mg/dL Creatinine 0.3 L (0.6-1.2) mg/dL POC Glucose 122 H 108 H (70-105) mg/dL Calcium 8.1 L (8.4-10.2) mg/dL Phosphorus (2.5-4.5) mg/dL Total Bilirubin 1.30 H (0.1-1.2) mg/dL AST 70 H (5-40) units/L Alkaline Phosphatase 232 H (35-129) units/L Ammonia (25-60) umol/L Total Protein 5.7 L (6.3-8.2) g/dL Albumin 2.6 L (3.9-5) g/dL
[2020-12-10] MEDS ORDERED: POTASSIUM CHLORIDE ER 20 MEQ TAB PO SCH (18:00)
[2020-12-10] MEDS: D5W/0.9% NACL 1,000 ML IV SCH (21:37)
[2020-12-10] MEDS: POTASSIUM CHLORIDE 20 MEQ PACKET PO SCH (23:30)
[2020-12-11] MEDS: POTASSIUM CHLORIDE 20 MEQ PACKET PO SCH ×2 (05:26→13:23)
[2020-12-11] MEDS: D5W/0.9% NACL 1,000 ML IV SCH (05:28)
[2020-12-11] MEDS: HYDROmorphone 1 MG/1 ML INJ IV PRN ×2 (05:49→20:07)
[2020-12-11] MEDS ORDERED: diphenhydrAMINE 25 MG CAP PO ONE (06:00)
[2020-12-11] MEDS ORDERED: diphenhydrAMINE 25 MG CAP PO SCH (06:00)
[2020-12-11 06:36] LABS: Hematocrit 35.4 % (30.3-42.9); Hemoglobin 11.3 gm/dl (10.1-14.3); Mean Corpuscular HGB Conc 32 % (30-34); Mean Corpuscular Volume 98 fl (79-97); Platelet Count 396 K/mm3 (140-440); Red Blood Count 3.59 M/mm3 (3.65-5.03); Red Cell Distribution Width 16.4 % (13.2-15.2)
[2020-12-11 07:03] LABS: Alanine Aminotransferase 29 units/L (7-56); Albumin 2.6 g/dL (3.9-5); Blood Urea Nitrogen 2 mg/dL (7-17); Calcium 8.5 mg/dL (8.4-10.2); Hemolysis Index 102
[2020-12-11 07:29] LABS: BUN/Creatinine Ratio 7
[2020-12-11 09:25] LABS: Band Neutrophils # (Manual) 0.6 K/mm3; Total Cells Counted 100
[2020-12-11 09:26] LABS: Target Cells Few
[2020-12-11] MEDS: HEPARIN 5,000 UNIT/1 ML VIAL SUB-Q SCH ×2 (09:55→21:51)
[2020-12-11] MEDS: FAMOTIDINE 20 MG/2 ML INJ IV SCH ×2 (09:55→21:51)
[2020-12-11] MEDS: POTASSIUM CHLORIDE 20 MEQ PACKET FEEDTUBE SCH (09:56)
--- NOTE | 2020-12-11 17:39 | Progress Note ---
Assessment and Plan - Patient Problems (1) DTs (delirium tremens) Current Visit: Yes Status: Acute Plan to address problem: Patient initiated on CIWA protocol IV fluids Banana bag (2) Dehydration Current Visit: Yes Status: Acute Plan to address problem: IV fluids for now (3) Hypokalemia Current Visit: Yes Status: Acute Plan to address problem: Supplemented aggressively (4) Transaminitis Current Visit: Yes Status: Acute Plan to address problem: Check acute hepatitis profile Probably secondary to excessive alcohol use (5) EtOH dependence Current Visit: Yes Status: Acute Plan to address problem: Mental health consult Patient requires outpatient/inpatient rehab for alcohol use (6) Folliculitis Current Visit: Yes Status: Acute Plan to address problem: Oral Bactrim for now (7) DVT prophylaxis Current Visit: Yes Status: Acute Plan to address problem: On heparin and GI prophylaxis Subjective Date of service: 12/11/20 Principal diagnosis: Severe hypokalemia, delirium tremens, peripheral neuropathy Interval history: Patient admitted with severe EtOH dependence, hypokalemia with potassium of around 2.4 and severe peripheral neuropathy and folliculitis. 12/10/2020 patient doing better Potassium is still low 12/11/2020 . Potassium is normal around 3.5 Symptomatically better Still complains of weakness in both lower legs but able to walk with a walker Physical therapy initiated Objective - Constitutional Vitals: Vital Signs - 12hr 12/11/20 12/11/20 12/11/20 07:47 12:06 16:22 Temperature 98.1 F 98.3 F 97.9 F Pulse Rate 102 H 94 H 100 H Respiratory 20 20 20 Rate Blood Pressure 133/87 138/92 116/86 O2 Sat by Pulse 97 98 98 Oximetry General appearance: Present: no acute distress, well-nourished - EENT Eyes: PERRL, EOM intact ENT: hearing intact, clear oral mucosa Ears: bilateral: normal - Neck Neck: supple, normal ROM - Respiratory Respiratory effort: normal Respiratory: bilateral: CTA - Breasts Breasts: normal - Cardiovascular Rhythm: regular Heart Sounds: Present: S1 & S2. Absent: gallop, rub Extremities: pulses intact, No edema, normal color, Full ROM - Gastrointestinal General gastrointestinal: Present: soft, non-tender, non-distended, normal bowel sounds - Genitourinary Female genitourinary: normal - Integumentary Integumentary: clear, warm, dry - Musculoskeletal Musculoskeletal: 1, strength equal bilaterally - Neurologic Neurologic: moves all extremities - Psychiatric Psychiatric: memory intact, appropriate mood/affect, intact judgment & insight - Labs CBC & Chem 7: 12/11/20 04:57 12/11/20 04:57 Labs: Abnormal lab results 12/10/20 12/10/20 12/11/20 Range/Units 20:32 21:10 04:57 WBC 16.1 H (4.5-11.0) K/mm3 RBC 3.59 L (3.65-5.03) M/mm3 MCV 98 H (79-97) fl RDW 16.4 H (13.2-15.2) % Seg Neuts % (Manual) 81.0 H (40.0-70.0) % Lymphocytes % (Manual) 9.0 L (13.4-35.0) % Seg Neutrophils # Man 13.0 H (1.8-7.7) K/mm3 Potassium 2.7 L* (3.6-5.0) mmol/L Chloride (98-107) mmol/L BUN (7-17) mg/dL Creatinine (0.6-1.2) mg/dL POC Glucose 121 H (70-105) mg/dL AST (5-40) units/L Alkaline Phosphatase (35-129) units/L Albumin (3.9-5) g/dL 12/11/20 12/11/20 12/11/20 Range/Units 04:57 07:13 16:28 WBC (4.5-11.0) K/mm3 RBC (3.65-5.03) M/mm3 MCV (79-97) fl RDW (13.2-15.2) % Seg Neuts % (Manual) (40.0-70.0) % Lymphocytes % (Manual) (13.4-35.0) % Seg Neutrophils # Man (1.8-7.7) K/mm3 Potassium (3.6-5.0) mmol/L Chloride 97.2 L (98-107) mmol/L BUN 2 L (7-17) mg/dL Creatinine 0.3 L (0.6-1.2) mg/dL POC Glucose 123 H 110 H (70-105) mg/dL AST 109 H (5-40) units/L Alkaline Phosphatase 269 H (35-129) units/L Albumin 2.6 L (3.9-5) g/dL
[2020-12-11] MEDS: LORazepam 2 MG/ML VIAL IV PRN (20:08)
[2020-12-12] MEDS: FAMOTIDINE 20 MG/2 ML INJ IV SCH ×3 (08:41→21:29)
[2020-12-12] MEDS: HEPARIN 5,000 UNIT/1 ML VIAL SUB-Q SCH ×3 (08:42→21:29)
[2020-12-12] MEDS: POTASSIUM CHLORIDE 20 MEQ PACKET FEEDTUBE SCH ×2 (08:44→10:00)
--- NOTE | 2020-12-12 10:56 | XRay Report ---
CHEST 1 VIEW INDICATION: Leukocytosis. COMPARISON: None FINDINGS: SUPPORT DEVICES: None. HEART: Within normal limits. LUNGS/PLEURA: Mild streaky bibasilar airspace disease. ADDITIONAL FINDINGS: None. IMPRESSION: 1. Lung findings as above. Signer Name: Micha Willson MD Signed: 12/12/2020 10:51 AM Workstation Name: [id number]
[2020-12-12 11:19] LABS: Basophils # (Auto) 0.1 K/mm3 (0.0-0.1); Basophils % (Auto) 0.4 % (0.0-1.8); Eosinophils # (Auto) 0.1 K/mm3 (0.0-0.4); Eosinophils % (Auto) 0.4 % (0.0-4.3); Hematocrit 32.2 % (30.3-42.9); Hemoglobin 10.2 gm/dl (10.1-14.3); Lymphocytes # (Auto) 2.2 K/mm3 (1.2-5.4); Mean Corpuscular HGB Conc 32 % (30-34); Mean Corpuscular Volume 98 fl (79-97); Monocytes # (Auto) 1.5 K/mm3 (0.0-0.8); Platelet Count 526 K/mm3 (140-440); Red Blood Count 3.27 M/mm3 (3.65-5.03); Red Cell Distribution Width 16.7 % (13.2-15.2)
[2020-12-12 11:54] LABS: Alanine Aminotransferase 33 units/L (7-56); Albumin 2.7 g/dL (3.9-5); Calcium 8.4 mg/dL (8.4-10.2); Hemolysis Index 26
[2020-12-12 11:56] LABS: BUN/Creatinine Ratio 3; Blood Urea Nitrogen < 1 mg/dL (7-17)
[2020-12-12] MEDS: LORazepam 2 MG/ML VIAL IV PRN ×2 (12:04→16:25)
[2020-12-12 12:40] LABS: Mucus,Urine FEW /HPF
[2020-12-12 12:45] LABS: Bilirubin,Urine Small (Negative); Color,Urine Yellow (Yellow)
[2020-12-12 12:46] LABS: Blood,Urine Negative (Negative); Ictotest,Urine Negative (Negative)
[2020-12-13] MEDS: LORazepam 2 MG/ML VIAL IV PRN ×2 (00:15→10:14)
[2020-12-13] MEDS: ACETAMINOPHEN 325 MG TAB PO PRN (07:26)
--- NOTE | 2020-12-13 08:39 | Ultrasound Report ---
ULTRASOUND ABDOMEN, COMPLETE INDICATION: Alcoholic, elevated LFTs, sepsis. COMPARISON: No relevant prior imaging study available. FINDINGS: Pancreas: The pancreas appears mildly heterogeneous although no focal mass or fluid collection is ana ntified.. Abdominal Aorta: No significant abnormality. IVC: No significant abnormality. Liver: The liver measures 21 cm in length. The liver is echogenic and attenuates the ultrasound beam characteristic of steatosis. Normal hepatopedal blood flow in the main portal vein. Gallbladder: There is moderate sludge and a few shadowing gallstones within the gallbladder. No abnor mal dilatation, wall thickening or pericholecystic fluid. Bile ducts: The common bile duct is borderline to mildly dilated measuring 5.9 mm. No obstructing les ion is seen in the common bile duct on ultrasound. No intrahepatic biliary dilatation. Kidneys: Right: 12 cm in length. No significant abnormality. Left: 11.5 cm in length. An 8 mm hyp erechoic focus is identified near the superior pole consistent with an angiomyolipoma or lipoma. The left kidney is otherwise unremarkable. Spleen: No significant abnormality. Free fluid: None. Additional Findings: None. IMPRESSION: Moderate hepatomegaly with diffuse steatosis. Sludge and stones in the gallbladder but no evidence for acute cholecystitis. The common bile duct is borderline to mildly dilated as described. Choledocholithiasis cannot be enti rely excluded. Please correlate with the patient's presentation and consider MRCP. 8 mm hyperechoic focus in the left kidney probably representing an angiomyolipoma.. Signer Name: Smooth Anaya Jr, MD Signed: 12/13/2020 8:35 AM Workstation Name: [id number]
[2020-12-13] MEDS: HEPARIN 5,000 UNIT/1 ML VIAL SUB-Q SCH ×2 (09:22→21:53)
[2020-12-13] MEDS: FAMOTIDINE 20 MG/2 ML INJ IV SCH (09:22)
[2020-12-13] MEDS: POTASSIUM CHLORIDE 20 MEQ PACKET FEEDTUBE SCH (09:22)
--- NOTE | 2020-12-13 13:30 | Consultation ---
History of Present Illness - Reason for Consult Consult date: 12/13/20 - History of Present Illness 50 yo F PMHx EtOH abuse presented to the hospital complaining of a bilateral lower extremity rash which began approximately 3 months prior to admission. She had been treated by her primary outpatient doctor for folliculitis over this timeframe with Bactrim, however there has been no change in the lesions. He complains of associated pruritus. She is reported to have abnormal blood counts on her labwork as an outpatient as well. discussed with at bedside. he noted no improvement after course of bactrim. He also notes the lesions are stable, not transitory. There has been no purulent discharge. Afebrile with a leukocytosis of 15. Currently on PO Bactrim. Review of Systems: Bold if positive, otherwise negative General: fevers, chills, rigors HEENT: visual disturbance, diplopia, eye pain Respiratory: cough, sputum, hemoptysis, shortness of breath Cardiovascular: chest pain, syncope Gastrointestinal: nausea, vomiting, diarrhea, abdominal pain Genitourinary: dysuria, hematuria, flank pain Musculoskeletal: neck pain, back pain, joint pain, edema Neurologic: headaches, seizures Hematologic: easy bruising or bleeding Endocrine: night sweats, acute weight loss Skin: rash, jaundice, redness Psychiatric: suicidal, homicidal ideation Medications and Allergies Allergies Allergy/AdvReac Type Severity Reaction Status Date / Time No Known Allergies Allergy Unverified 12/09/20 11:18 Home Medications Medication Instructions Recorded Confirmed Last Taken Type No Known Home Medications [No 12/14/20 12/14/20 Unknown History Reported Home Medications] Active Meds: Active Medications Acetaminophen (Acetaminophen 325 Mg Tab) 650 mg PO Q4H PRN PRN Reason: Pain MILD(1-3)/Fever >100.5/RENE Last Admin: 12/13/20 07:26 Dose: 650 mg Documented by: Famotidine (Famotidine 20 Mg Tab) 20 mg PO BID J[facility] Gabapentin (Gabapentin 400 Mg Cap) 800 mg PO TID JAN[facility] Haloperidol Lactate (Haloperidol Lactate 5 Mg/1 Ml Inj) 5 mg IV Q1H PRN PRN Reason: Unrespon. to mult. doses BZD's Heparin Sodium (Porcine) (Heparin 5,000 Unit/1 Ml Vial) 5,000 unit SUB-Q Q12HR [facility] Last Admin: 12/13/20 09:22 Dose: 5,000 unit Documented by: Dextrose/Sodium Chloride (D5ns) 1,000 mls @ 100 mls/hr IV DIRECT [facility] Last Admin: 12/11/20 05:28 Dose: 100 mls/hr Documented by: Lorazepam (Lorazepam 2 Mg/Ml Vial) 2 mg IV Q1HR PRN PRN Reason: CIWA-Ar 8-15 Last Admin: 12/13/20 10:14 Dose: 2 mg Documented by: Lorazepam (Lorazepam 2 Mg/Ml Vial) 4 mg IV Q1HR PRN PRN Reason: CIWA-Ar 16-25 Lorazepam (Lorazepam 2 Mg/Ml Vial) 4 mg IV Q15MIN PRN PRN Reason: CIWA-Ar >25 Metoclopramide HCl (Metoclopramide 10 Mg/2 Ml Inj) 10 mg IV Q6H PRN PRN Reason: Nausea And Vomiting Ondansetron HCl (Ondansetron 4 Mg/2 Ml Inj) 4 mg IV Q8H PRN PRN Reason: Nausea And Vomiting Potassium Chloride (Potassium Chloride 20 Meq Packet) 40 meq PO QDAY [facility] Sodium Chloride (Sodium Chloride 0.9% 10 Ml Flush Syringe) 10 ml IV BID [facility] Last Admin: 12/13/20 09:22 Dose: 10 ml Documented by: Sodium Chloride (Sodium Chloride 0.9% 10 Ml Flush Syringe) 10 ml IV PRN PRN PRN Reason: LINE FLUSH Physical Examination - Physical Exam Narrative exam: Physical Exam: Constitutional: Alert, cooperative. No acute distress Head, Ears, Nose: Normocephalic, atraumatic. External ears, nose normal Eyes: Conjunctivae/corneas clear. No icterus. No ptosis. Neck: Supple, no meningeal signs Oral: dentition fair, no thrush Cardiovascular: S1, S2 normal. Respiratory: Good air entry, clear to auscultation bilaterally GI: Soft, non-tender; bowel sounds normal. No peritoneal signs. Musculoskeletal: No pedal edema, no cyanosis. Skin: Macules and papules non tender BLE. Hem/Lymphatic: No palpable cervical or supraclavicular nodes. No lymphangitis Psych: Mood ok. Affect normal Neurological: Awake, alert, oriented. No gross abnormality - Constitutional Vitals: Vital Signs Temp Pulse Resp BP Pulse Ox 97.6 F 93 H 18 160/106 98 12/13/20 08:54 12/13/20 04:44 12/13/20 08:54 12/13/20 08:54 12/13/20 08:00 Temperature -Last 24 Hours Temperature 97.6 F Temperature 98.7 F Temperature 97.4 F Temperature 98.9 F Results - Labs CBC & Chem 7: 12/12/20 10:47 12/12/20 10:47 Assessment and Plan Cultures: None A/P: 50 yo F PMHx PMHx EtOH abuse presents [facility] with bilateral lower extremity rash. #Bilateral LE skin lesions: has been treated as outpatient and now inpatient for folliculitis with no response to antibiotics. Am concerned this is a non- infectious cause. Will continue antibiotics for now given leukocytosis, but given lack of response so far may need heme/onc consult (cutaneous sign of hematologic malignancy given persistent leukocytosis?) and potential skin biopsy. #EtOH abuse: psych onboard Recs: -Switch Bactrim to vancomycin given lack of response, though likely short course as probably non-infectious cause -Recommend heme-onc consult. Thank you for the consult, we will continue to follow. MD Pallavi [facility] ([facility] O: [phone] F: [phone]
[2020-12-13] MEDS: D5W/0.9% NACL 1,000 ML IV SCH (13:58)
[2020-12-13] MEDS: GABAPENTIN 400 MG CAP PO SCH ×2 (13:58→21:53)
[2020-12-13] MEDS ORDERED: VANCOMYCIN PHARMACY TO DOSE IV SCH (14:00)
[2020-12-13] MEDS ORDERED: VANCOMYCIN 1,500 MG in SODIUM CHLORIDE 0.9% 500 ML 500 ML IV ONE (14:30)
[2020-12-13] MEDS: FAMOTIDINE 20 MG TAB PO SCH (21:53)
[2020-12-14] MEDS: VANCOMYCIN 1,250 MG in SODIUM CHLORIDE 0.9% 250ML 250 ML IV SCH ×2 (03:05→20:06)
--- NOTE | 2020-12-14 08:10 | Progress Note ---
Assessment and Plan Assessment and plan: The patient states that she has had a rash and lesions on her bilateral lower extremities, which have been present for around 3 months. Her outpatient primary care doctor treated her presumptively for "folliculitis", with hydroxyzine, and Bactrim. However, the lesions have been unchanged.. Lesions are pruritic. The patient also reports having outpatient laboratory studies drawn, which "showed low blood counts." The patient was thus referred to the emergency room for clearance. The patient denies headache, neck pain, chest pain, and abdominal pain. She is nauseous but not vomiting. She denies hematemesis and bright red blood per rectum. She denies urinary symptoms. She is not COVID-19 vaccinated. She drinks alcohol on a daily basis. Her last alcoholic beverage was yesterday. Also excessive alcohol use the last 20 years. Patient had 2 mixed drinks last night. Alcohol breath during my examination. Feels unsteady while walking (1) alcohol withdrawal syndrome Current Visit: Yes Status: Acute Plan to address problem: Patient initiated on CIWA protocol IV fluids Banana bag, thiamine/folic acid (2) Dehydration Current Visit: Yes Status: Acute Plan to address problem: IV fluids for now (3) Hypokalemia Current Visit: Yes Status: Acute Plan to address problem: Supplemented aggressively (4) Transaminitis likely alcohol hepatitis Current Visit: Yes Status: Acute Plan to address problem: Check acute hepatitis profile Probably secondary to excessive alcohol use ordered abdominal ultrasound (5) EtOH dependence Current Visit: Yes Status: Acute Plan to address problem: Mental health consult Patient requires outpatient/inpatient rehab for alcohol use (6) Folliculitis with leukocytosis Current Visit: Yes Status: Acute Plan to address problem: Oral Bactrim for now, consult ID (7) DVT prophylaxis Current Visit: Yes Status: Acute Plan to address problem: On heparin and GI prophylaxis Discussed with the patient and her at bedside History Interval history: Patient is on CIWA protocol, anxious, sluggish but fairly oriented. Answers appropriately. Hospitalist Physical - Constitutional Vitals: Temp Pulse Resp BP Pulse Ox 98.4 F 114 H 18 133/102 97 12/14/20 04:24 12/14/20 04:24 12/14/20 04:24 12/14/20 04:24 12/14/20 04:24 General appearance: Present: no acute distress, obese - EENT Eyes: Present: PERRL, EOM intact ENT: hearing intact, clear oral mucosa - Neck Neck: Present: supple - Respiratory Respiratory effort: normal Respiratory: bilateral: CTA - Extremities Extremities: No edema - Abdominal General gastrointestinal: soft, non-tender, distended, normal bowel sounds - Integumentary Integumentary: Present: rash (Dry chronic looking papular rash over the upper and lower extremities.) - Psychiatric Psychiatric: other (Anxious) - Neurologic Neurologic: no focal deficits, other (No tremors.) Results - Labs CBC & Chem 7: 12/12/20 10:47 12/12/20 10:47 Labs: Laboratory Last Values WBC 14.9 K/mm3 (4.5-11.0) H 12/12/20 10:47 RBC 3.27 M/mm3 (3.65-5.03) L 12/12/20 10:47 Hgb 10.2 gm/dl (10.1-14.3) 12/12/20 10:47 Hct 32.2 % (30.3-42.9) 12/12/20 10:47 MCV 98 fl (79-97) H 12/12/20 10:47 MCH 31 pg (28-32) 12/12/20 10:47 MCHC 32 % (30-34) 12/12/20 10:47 RDW 16.7 % (13.2-15.2) H 12/12/20 10:47 Plt Count 526 K/mm3 (140-440) H 12/12/20 10:47 Lymph % (Auto) 15.0 % (13.4-35.0) 12/12/20 10:47 Elbert % (Auto) 10.0 % (0.0-7.3) H 12/12/20 10:47 Eos % (Auto) 0.4 % (0.0-4.3) 12/12/20 10:47 Baso % (Auto) 0.4 % (0.0-1.8) 12/12/20 10:47 Lymph # (Auto) 2.2 K/mm3 (1.2-5.4) 12/12/20 10:47 Elbert # (Auto) 1.5 K/mm3 (0.0-0.8) H 12/12/20 10:47 Eos # (Auto) 0.1 K/mm3 (0.0-0.4) 12/12/20 10:47 Baso # (Auto) 0.1 K/mm3 (0.0-0.1) 12/12/20 10:47 Add Manual Diff Complete 12/11/20 04:57 Total Counted 100 12/11/20 04:57 Seg Neutrophils % 74.2 % (40.0-70.0) H 12/12/20 10:47 Seg Neuts % (Manual) 81.0 % (40.0-70.0) H 12/11/20 04:57 Band Neutrophils % 4.0 % 12/11/20 04:57 Lymphocytes % (Manual) 9.0 % (13.4-35.0) L 12/11/20 04:57 Monocytes % (Manual) 5.0 % (0.0-7.3) 12/11/20 04:57 Metamyelocytes % 1.0 % 12/11/20 04:57 Nucleated RBC % Not Reportable 12/11/20 04:57 Seg Neutrophils # 11.0 K/mm3 (1.8-7.7) H 12/12/20 10:47 Seg Neutrophils # Man 13.0 K/mm3 (1.8-7.7) H 12/11/20 04:57 Band Neutrophils # 0.6 K/mm3 12/11/20 04:57 Lymphocytes # (Manual) 1.4 K/mm3 (1.2-5.4) 12/11/20 04:57 Abs React Lymphs (Man) 0.0 K/mm3 12/11/20 04:57 Monocytes # (Manual) 0.8 K/mm3 (0.0-0.8) 12/11/20 04:57 Eosinophils # (Manual) 0.0 K/mm3 (0.0-0.4) 12/11/20 04:57 Basophils # (Manual) 0.0 K/mm3 (0.0-0.1) 12/11/20 04:57 Metamyelocytes # 0.2 K/mm3 12/11/20 04:57 Myelocytes # 0.0 K/mm3 12/11/20 04:57 Promyelocytes # 0.0 K/mm3 12/11/20 04:57 Blast Cells # 0.0 K/mm3 12/11/20 04:57 WBC Morphology Not Reportable 12/11/20 04:57 WBC Morphology TNR 12/11/20 04:57 Hypersegmented Neuts Not Reportable 12/11/20 04:57 Hyposegmented Neuts Not Reportable 12/11/20 04:57 Hypogranular Neuts Not Reportable 12/11/20 04:57 Smudge Cells Not Reportable 12/11/20 04:57 Toxic Granulation Not Reportable 12/11/20 04:57 Toxic Vacuolation Not Reportable 12/11/20 04:57 Dohle Bodies Not Reportable 12/11/20 04:57 Pelger-Huet Anomaly Not Reportable 12/11/20 04:57 Sarah Rods Not Reportable 12/11/20 04:57 Platelet Estimate Not Reportable 12/11/20 04:57 Clumped Platelets Not Reportable 12/11/20 04:57 Plt Clumps, EDTA Not Reportable 12/11/20 04:57 Large Platelets Not Reportable 12/11/20 04:57 Giant Platelets Not Reportable 12/11/20 04:57 Platelet Satelliting Not Reportable 12/11/20 04:57 Plt Morphology Comment Not Reportable 12/11/20 04:57 RBC Morphology Not Reportable 12/11/20 04:57 Dimorphic RBCs Not Reportable 12/11/20 04:57 Polychromasia Not Reportable 12/11/20 04:57 Hypochromasia Not Reportable 12/11/20 04:57 Poikilocytosis Not Reportable 12/11/20 04:57 Anisocytosis Not Reportable 12/11/20 04:57 Microcytosis Not Reportable 12/11/20 04:57 Macrocytosis Not Reportable 12/11/20 04:57 Spherocytes Not Reportable 12/11/20 04:57 Pappenheimer Bodies Not Reportable 12/11/20 04:57 Sickle Cells Not Reportable 12/11/20 04:57 Target Cells Few 12/11/20 04:57 Tear Drop Cells Not Reportable 12/11/20 04:57 Ovalocytes Not Reportable 12/11/20 04:57 Helmet Cells Not Reportable 12/11/20 04:57 Zarate-Valencia Bodies Not Reportable 12/11/20 04:57 Banks Rings Not Reportable 12/11/20 04:57 Sharifa Cells Not Reportable 12/11/20 04:57 Bite Cells Not Reportable 12/11/20 04:57 Crenated Cell Not Reportable 12/11/20 04:57 Elliptocytes Not Reportable 12/11/20 04:57 Acanthocytes (Spur) Not Reportable 12/11/20 04:57 Rouleaux Not Reportable 12/11/20 04:57 Hemoglobin C Crystals Not Reportable 12/11/20 04:57 Schistocytes Not Reportable 12/11/20 04:57 Malaria parasites Not Reportable 12/11/20 04:57 Amador Bodies Not Reportable 12/11/20 04:57 Hem Pathologist Commnt No 12/11/20 04:57 PT 15.7 Sec. (12.2-14.9) H 12/09/20 11:42 INR 1.13 (0.87-1.13) 12/09/20 11:42 APTT 34.8 Sec. (24.2-36.6) 12/09/20 11:42 Sodium 138 mmol/L (137-145) 12/12/20 10:47 Potassium 4.5 mmol/L (3.6-5.0) D 12/12/20 10:47 Chloride 100.8 mmol/L (98-107) 12/12/20 10:47 Carbon Dioxide 25 mmol/L (22-30) 12/12/20 10:47 Anion Gap 17 mmol/L 12/12/20 10:47 BUN < 1 mg/dL (7-17) L 12/12/20 10:47 Creatinine 0.3 mg/dL (0.6-1.2) L 12/12/20 10:47 Estimated GFR > 60 ml/min 12/12/20 10:47 BUN/Creatinine Ratio 3 % 12/12/20 10:47 Glucose 111 mg/dL (65-100) H 12/12/20 10:47 POC Glucose 110 mg/dL (70-105) H 12/11/20 16:28 Calcium 8.4 mg/dL (8.4-10.2) 12/12/20 10:47 Phosphorus 1.60 mg/dL (2.5-4.5) L 12/09/20 18:22 Magnesium 2.00 mg/dL (1.7-2.3) 12/09/20 18:22 Total Bilirubin 0.80 mg/dL (0.1-1.2) 12/12/20 10:47 AST 115 units/L (5-40) H 12/12/20 10:47 ALT 33 units/L (7-56) 12/12/20 10:47 Alkaline Phosphatase 259 units/L (35-129) H 12/12/20 10:47 Ammonia 81.0 umol/L (25-60) H 12/09/20 18:22 Total Creatine Kinase 26 units/L (30-135) L 12/09/20 11:42 Total Protein 6.3 g/dL (6.3-8.2) 12/12/20 10:47 Albumin 2.7 g/dL (3.9-5) L 12/12/20 10:47 Albumin/Globulin Ratio 0.8 % 12/12/20 10:47 Amylase 53 units/L (27-131) 12/09/20 18:22 TSH 1.150 mlU/mL (0.270-4.200) 12/09/20 11:42 HCG, Quant 2.97 mIU/mL (0-4) 12/09/20 11:42 Urine Color Yellow (Yellow) 12/12/20 12:16 Urine Turbidity Clear (Clear) 12/12/20 12:16 Urine pH 8.0 (5.0-7.0) H 12/12/20 12:16 Ur Specific [place] 1.005 (1.003-1.030) 12/12/20 12:16 Urine Protein 30 mg/dl mg/dL (Negative) 12/12/20 12:16 Urine Glucose (UA) Negative mg/dL (Negative) 12/12/20 12:16 Urine Ketones Negative mg/dL (Negative) 12/12/20 12:16 Urine Blood Negative (Negative) 12/12/20 12:16 Urine Nitrite Negative (Negative) 12/12/20 12:16 Ur Reducing Substances Not Reportable 12/12/20 12:16 Urine Bilirubin Small (Negative) 12/12/20 12:16 Urine Ictotest Negative (Negative) 12/12/20 12:16 Urine Urobilinogen Not Reportable 12/12/20 12:16 Ur Leukocyte Esterase Small (Negative) 12/12/20 12:16 Urine WBC (Auto) 2.0 /HPF (0.0-6.0) 12/12/20 12:16 Urine RBC (Auto) 2.0 /HPF (0.0-6.0) 12/12/20 12:16 U Epithel Cells (Auto) 3.0 /HPF (0-13.0) 12/12/20 12:16 Urine Mucus Few /HPF 12/12/20 12:16 Salicylates 1.9 mg/dL (2.8-20.0) L 12/09/20 11:42 Acetaminophen 5.0 ug/mL (10.0-30.0) L 12/09/20 11:42 Plasma/Serum Alcohol < 0.01 % (0-0.07) 12/09/20 11:42 Villasenor/IV: Voiding Method Bedside Commode Active Medications - Current Medications Current Medications: Generic Name Dose Route Start Last Admin Trade Name Freq PRN Reason Stop Dose Admin Acetaminophen 650 mg 12/09/20 17:51 12/13/20 07:26 Acetaminophen 325 Mg Tab PO 650 mg Q4H PRN Administration Pain MILD(1-3)/Fever >100.5/RENE Famotidine 20 mg 12/13/20 22:00 12/13/20 21:53 Famotidine 20 Mg Tab PO 20 mg BID JANICE Administration Gabapentin 800 mg 12/13/20 14:00 12/13/20 21:53 Gabapentin 400 Mg Cap PO 800 mg TID JANICE Administration Haloperidol Lactate 5 mg 12/09/20 17:54 Haloperidol Lactate 5 Mg/1 Ml Inj IV Q1H PRN Unrespon. to mult. doses BZD's Heparin Sodium (Porcine) 5,000 unit 12/09/20 22:00 12/13/20 21:53 Heparin 5,000 Unit/1 Ml Vial SUB-Q 5,000 unit Q12HR JANICE Administration Dextrose/Sodium Chloride 1,000 mls @ 100 mls/hr 12/09/20 18:00 12/13/20 13:58 D5ns IV 100 mls/hr DIRECT JANICE Administration Vancomycin HCl 1,250 mg/ 275 mls @ 166.667 mls/hr 12/14/20 03:00 12/14/20 03:05 Sodium Chloride IV 166.667 mls/hr Q12H AJNICE Administration Lorazepam 2 mg 12/09/20 12:43 12/13/20 10:14 Lorazepam 2 Mg/Ml Vial IV 2 mg Q1HR PRN Administration CIWA-Ar 8-15 Lorazepam 4 mg 12/09/20 12:43 Lorazepam 2 Mg/Ml Vial IV Q1HR PRN CIWA-Ar 16-25 Lorazepam 4 mg 12/09/20 12:43 Lorazepam 2 Mg/Ml Vial IV Q15MIN PRN CIWA-Ar >25 Metoclopramide HCl 10 mg 12/09/20 17:51 Metoclopramide 10 Mg/2 Ml Inj IV Q6H PRN Nausea And Vomiting Ondansetron HCl 4 mg 12/09/20 17:51 Ondansetron 4 Mg/2 Ml Inj IV Q8H PRN Nausea And Vomiting Potassium Chloride 40 meq 12/14/20 10:00 Potassium Chloride 20 Meq Packet PO QDAY JANICE Sodium Chloride 10 ml 12/09/20 22:00 12/13/20 21:53 Sodium Chloride 0.9% 10 Ml Flush Syringe IV 10 ml BID JANICE Administration Sodium Chloride 10 ml 12/09/20 17:51 Sodium Chloride 0.9% 10 Ml Flush Syringe IV PRN PRN LINE FLUSH
--- NOTE | 2020-12-14 08:10 | Progress Note ---
Assessment and Plan Assessment and plan: The patient states that she has had a rash and lesions on her bilateral lower extremities, which have been present for around 3 months. Her outpatient primary care doctor treated her presumptively for "folliculitis", with hydroxyzine, and Bactrim. However, the lesions have been unchanged.. Lesions are pruritic. The patient also reports having outpatient laboratory studies drawn, which "showed low blood counts." The patient was thus referred to the emergency room for clearance. The patient denies headache, neck pain, chest pain, and abdominal pain. She is nauseous but not vomiting. She denies hematemesis and bright red blood per rectum. She denies urinary symptoms. She is not COVID-19 vaccinated. She drinks alcohol on a daily basis. Her last alcoholic beverage was yesterday. Also excessive alcohol use the last 20 years. Patient had 2 mixed drinks last night. Alcohol breath during my examination. Feels unsteady while walking (1) alcohol withdrawal syndrome Current Visit: Yes Status: Acute Plan to address problem: Patient initiated on CIWA protocol IV fluids Banana bag, thiamine/folic acid (2) Dehydration Current Visit: Yes Status: Acute Plan to address problem: IV fluids for now (3) Hypokalemia Current Visit: Yes Status: Acute Plan to address problem: Supplemented aggressively (4) Transaminitis likely alcohol hepatitis and fatty liver Current Visit: Yes Status: Acute Plan to address problem: Check acute hepatitis profile Probably secondary to excessive alcohol use Ultrasound shows a moderate hepatomegaly and steatosis (5) EtOH dependence Current Visit: Yes Status: Acute Plan to address problem: Mental health consult Patient requires outpatient/inpatient rehab for alcohol use (6) Folliculitis with leukocytosis Current Visit: Yes Status: Acute Plan to address problem: Oral Bactrim for now, consult ID (7) DVT prophylaxis Current Visit: Yes Status: Acute Plan to address problem: On heparin and GI prophylaxis Discussed with the patient and her at bedside History Interval history: Patient is on CIWA protocol, anxious, sluggish but fairly oriented. Answers appropriately. Patient reports feeling better. No tremors. No diarrhea. No abdominal pain. Remains afebrile. is present at bedside. Hospitalist Physical - Constitutional Vitals: Temp Pulse Resp BP Pulse Ox 98.4 F 114 H 18 133/102 97 12/14/20 04:24 12/14/20 04:24 12/14/20 04:24 12/14/20 04:24 12/14/20 04:24 General appearance: Present: no acute distress, well-nourished, obese, other (More alert and comfortable today) - EENT Eyes: Present: PERRL, EOM intact ENT: clear oral mucosa - Neck Neck: Present: supple - Respiratory Respiratory effort: normal Respiratory: bilateral: CTA - Cardiovascular Rhythm: regular - Extremities Extremities: No edema - Abdominal General gastrointestinal: soft, non-tender, distended, normal bowel sounds - Integumentary Integumentary: Present: rash (Dry chronic papular rash in the upper and lower extremities). Absent: jaundice - Psychiatric Psychiatric: depressed, other (Anxious) - Neurologic Neurologic: no focal deficits Results - Labs CBC & Chem 7: 12/12/20 10:47 12/12/20 10:47 Labs: Laboratory Last Values WBC 14.9 K/mm3 (4.5-11.0) H 12/12/20 10:47 RBC 3.27 M/mm3 (3.65-5.03) L 12/12/20 10:47 Hgb 10.2 gm/dl (10.1-14.3) 12/12/20 10:47 Hct 32.2 % (30.3-42.9) 12/12/20 10:47 MCV 98 fl (79-97) H 12/12/20 10:47 MCH 31 pg (28-32) 12/12/20 10:47 MCHC 32 % (30-34) 12/12/20 10:47 RDW 16.7 % (13.2-15.2) H 12/12/20 10:47 Plt Count 526 K/mm3 (140-440) H 12/12/20 10:47 Lymph % (Auto) 15.0 % (13.4-35.0) 12/12/20 10:47 [place] % (Auto) 10.0 % (0.0-7.3) H 12/12/20 10:47 Eos % (Auto) 0.4 % (0.0-4.3) 12/12/20 10:47 Baso % (Auto) 0.4 % (0.0-1.8) 12/12/20 10:47 Lymph # (Auto) 2.2 K/mm3 (1.2-5.4) 12/12/20 10:47 [place] # (Auto) 1.5 K/mm3 (0.0-0.8) H 12/12/20 10:47 Eos # (Auto) 0.1 K/mm3 (0.0-0.4) 12/12/20 10:47 Baso # (Auto) 0.1 K/mm3 (0.0-0.1) 12/12/20 10:47 Add Manual Diff Complete 12/11/20 04:57 Total Counted 100 12/11/20 04:57 Seg Neutrophils % 74.2 % (40.0-70.0) H 12/12/20 10:47 Seg Neuts % (Manual) 81.0 % (40.0-70.0) H 12/11/20 04:57 Band Neutrophils % 4.0 % 12/11/20 04:57 Lymphocytes % (Manual) 9.0 % (13.4-35.0) L 12/11/20 04:57 Monocytes % (Manual) 5.0 % (0.0-7.3) 12/11/20 04:57 Metamyelocytes % 1.0 % 12/11/20 04:57 Nucleated RBC % Not Reportable 12/11/20 04:57 Seg Neutrophils # 11.0 K/mm3 (1.8-7.7) H 12/12/20 10:47 Seg Neutrophils # Man 13.0 K/mm3 (1.8-7.7) H 12/11/20 04:57 Band Neutrophils # 0.6 K/mm3 12/11/20 04:57 Lymphocytes # (Manual) 1.4 K/mm3 (1.2-5.4) 12/11/20 04:57 Abs React Lymphs (Man) 0.0 K/mm3 12/11/20 04:57 Monocytes # (Manual) 0.8 K/mm3 (0.0-0.8) 12/11/20 04:57 Eosinophils # (Manual) 0.0 K/mm3 (0.0-0.4) 12/11/20 04:57 Basophils # (Manual) 0.0 K/mm3 (0.0-0.1) 12/11/20 04:57 Metamyelocytes # 0.2 K/mm3 12/11/20 04:57 Myelocytes # 0.0 K/mm3 12/11/20 04:57 Promyelocytes # 0.0 K/mm3 12/11/20 04:57 Blast Cells # 0.0 K/mm3 12/11/20 04:57 WBC Morphology Not Reportable 12/11/20 04:57 WBC Morphology TNR 12/11/20 04:57 Hypersegmented Neuts Not Reportable 12/11/20 04:57 Hyposegmented Neuts Not Reportable 12/11/20 04:57 Hypogranular Neuts Not Reportable 12/11/20 04:57 Smudge Cells Not Reportable 12/11/20 04:57 Toxic Granulation Not Reportable 12/11/20 04:57 Toxic Vacuolation Not Reportable 12/11/20 04:57 Dohle Bodies Not Reportable 12/11/20 04:57 Pelger-Huet Anomaly Not Reportable 12/11/20 04:57 Sarah Rods Not Reportable 12/11/20 04:57 Platelet Estimate Not Reportable 12/11/20 04:57 Clumped Platelets Not Reportable 12/11/20 04:57 Plt Clumps, EDTA Not Reportable 12/11/20 04:57 Large Platelets Not Reportable 12/11/20 04:57 Giant Platelets Not Reportable 12/11/20 04:57 Platelet Satelliting Not Reportable 12/11/20 04:57 Plt Morphology Comment Not Reportable 12/11/20 04:57 RBC Morphology Not Reportable 12/11/20 04:57 Dimorphic RBCs Not Reportable 12/11/20 04:57 Polychromasia Not Reportable 12/11/20 04:57 Hypochromasia Not Reportable 12/11/20 04:57 Poikilocytosis Not Reportable 12/11/20 04:57 Anisocytosis Not Reportable 12/11/20 04:57 Microcytosis Not Reportable 12/11/20 04:57 Macrocytosis Not Reportable 12/11/20 04:57 Spherocytes Not Reportable 12/11/20 04:57 Pappenheimer Bodies Not Reportable 12/11/20 04:57 Sickle Cells Not Reportable 12/11/20 04:57 Target Cells Few 12/11/20 04:57 Tear Drop Cells Not Reportable 12/11/20 04:57 Ovalocytes Not Reportable 12/11/20 04:57 Helmet Cells Not Reportable 12/11/20 04:57 Zarate-Ke[place] Bodies Not Reportable 12/11/20 04:57 [place] Rings Not Reportable 12/11/20 04:57 Sharifa Cells Not Reportable 12/11/20 04:57 Bite Cells Not Reportable 12/11/20 04:57 Crenated Cell Not Reportable 12/11/20 04:57 Elliptocytes Not Reportable 12/11/20 04:57 Acanthocytes (Spur) Not Reportable 12/11/20 04:57 Rouleaux Not Reportable 12/11/20 04:57 Hemoglobin C Crystals Not Reportable 12/11/20 04:57 Schistocytes Not Reportable 12/11/20 04:57 Malaria parasites Not Reportable 12/11/20 04:57 Amador Bodies Not Reportable 12/11/20 04:57 Hem Pathologist Commnt No 12/11/20 04:57 PT 15.7 Sec. (12.2-14.9) H 12/09/20 11:42 INR 1.13 (0.87-1.13) 12/09/20 11:42 APTT 34.8 Sec. (24.2-36.6) 12/09/20 11:42 Sodium 138 mmol/L (137-145) 12/12/20 10:47 Potassium 4.5 mmol/L (3.6-5.0) D 12/12/20 10:47 Chloride 100.8 mmol/L (98-107) 12/12/20 10:47 Carbon Dioxide 25 mmol/L (22-30) 12/12/20 10:47 Anion Gap 17 mmol/L 12/12/20 10:47 BUN < 1 mg/dL (7-17) L 12/12/20 10:47 Creatinine 0.3 mg/dL (0.6-1.2) L 12/12/20 10:47 Estimated GFR > 60 ml/min 12/12/20 10:47 BUN/Creatinine Ratio 3 % 12/12/20 10:47 Glucose 111 mg/dL (65-100) H 12/12/20 10:47 POC Glucose 110 mg/dL (70-105) H 12/11/20 16:28 Calcium 8.4 mg/dL (8.4-10.2) 12/12/20 10:47 Phosphorus 1.60 mg/dL (2.5-4.5) L 12/09/20 18:22 Magnesium 2.00 mg/dL (1.7-2.3) 12/09/20 18:22 Total Bilirubin 0.80 mg/dL (0.1-1.2) 12/12/20 10:47 AST 115 units/L (5-40) H 12/12/20 10:47 ALT 33 units/L (7-56) 12/12/20 10:47 Alkaline Phosphatase 259 units/L (35-129) H 12/12/20 10:47 Ammonia 81.0 umol/L (25-60) H 12/09/20 18:22 Total Creatine Kinase 26 units/L (30-135) L 12/09/20 11:42 Total Protein 6.3 g/dL (6.3-8.2) 12/12/20 10:47 Albumin 2.7 g/dL (3.9-5) L 12/12/20 10:47 Albumin/Globulin Ratio 0.8 % 12/12/20 10:47 Amylase 53 units/L (27-131) 12/09/20 18:22 TSH 1.150 mlU/mL (0.270-4.200) 12/09/20 11:42 HCG, Quant 2.97 mIU/mL (0-4) 12/09/20 11:42 Urine Color Yellow (Yellow) 12/12/20 12:16 Urine Turbidity Clear (Clear) 12/12/20 12:16 Urine pH 8.0 (5.0-7.0) H 12/12/20 12:16 Ur Specific [place] 1.005 (1.003-1.030) 12/12/20 12:16 Urine Protein 30 mg/dl mg/dL (Negative) 12/12/20 12:16 Urine Glucose (UA) Negative mg/dL (Negative) 12/12/20 12:16 Urine Ketones Negative mg/dL (Negative) 12/12/20 12:16 Urine Blood Negative (Negative) 12/12/20 12:16 Urine Nitrite Negative (Negative) 12/12/20 12:16 Ur Reducing Substances Not Reportable 12/12/20 12:16 Urine Bilirubin Small (Negative) 12/12/20 12:16 Urine Ictotest Negative (Negative) 12/12/20 12:16 Urine Urobilinogen Not Reportable 12/12/20 12:16 Ur Leukocyte Esterase Small (Negative) 12/12/20 12:16 Urine WBC (Auto) 2.0 /HPF (0.0-6.0) 12/12/20 12:16 Urine RBC (Auto) 2.0 /HPF (0.0-6.0) 12/12/20 12:16 U Epithel Cells (Auto) 3.0 /HPF (0-13.0) 12/12/20 12:16 Urine Mucus Few /HPF 12/12/20 12:16 Salicylates 1.9 mg/dL (2.8-20.0) L 12/09/20 11:42 Acetaminophen 5.0 ug/mL (10.0-30.0) L 12/09/20 11:42 Plasma/Serum Alcohol < 0.01 % (0-0.07) 12/09/20 11:42 Villasenor/IV: Voiding Method Bedside Commode Active Medications - Current Medications Current Medications: Generic Name Dose Route Start Last Admin Trade Name Freq PRN Reason Stop Dose Admin Acetaminophen 650 mg 12/09/20 17:51 12/13/20 07:26 Acetaminophen 325 Mg Tab PO 650 mg Q4H PRN Administration Pain MILD(1-3)/Fever >100.5/RENE Famotidine 20 mg 12/13/20 22:00 12/13/20 21:53 Famotidine 20 Mg Tab PO 20 mg BID JANICE Administration Gabapentin 800 mg 12/13/20 14:00 12/13/20 21:53 Gabapentin 400 Mg Cap PO 800 mg TID JANICE Administration Haloperidol Lactate 5 mg 12/09/20 17:54 Haloperidol Lactate 5 Mg/1 Ml Inj IV Q1H PRN Unrespon. to mult. doses BZD's Heparin Sodium (Porcine) 5,000 unit 12/09/20 22:00 12/13/20 21:53 Heparin 5,000 Unit/1 Ml Vial SUB-Q 5,000 unit Q12HR JANICE Administration Dextrose/Sodium Chloride 1,000 mls @ 100 mls/hr 12/09/20 18:00 12/13/20 13:58 D5ns IV 100 mls/hr DIRECT JANICE Administration Vancomycin HCl 1,250 mg/ 275 mls @ 166.667 mls/hr 12/14/20 03:00 12/14/20 03:05 Sodium Chloride IV 166.667 mls/hr Q12H JANICE Administration Lorazepam 2 mg 12/09/20 12:43 12/13/20 10:14 Lorazepam 2 Mg/Ml Vial IV 2 mg Q1HR PRN Administration CIWA-Ar 8-15 Lorazepam 4 mg 12/09/20 12:43 Lorazepam 2 Mg/Ml Vial IV Q1HR PRN CIWA-Ar 16-25 Lorazepam 4 mg 12/09/20 12:43 Lorazepam 2 Mg/Ml Vial IV Q15MIN PRN CIWA-Ar >25 Metoclopramide HCl 10 mg 12/09/20 17:51 Metoclopramide 10 Mg/2 Ml Inj IV Q6H PRN Nausea And Vomiting Ondansetron HCl 4 mg 12/09/20 17:51 Ondansetron 4 Mg/2 Ml Inj IV Q8H PRN Nausea And Vomiting Potassium Chloride 40 meq 12/14/20 10:00 Potassium Chloride 20 Meq Packet PO QDAY JANICE Sodium Chloride 10 ml 12/09/20 22:00 12/13/20 21:53 Sodium Chloride 0.9% 10 Ml Flush Syringe IV 10 ml BID JANICE Administration Sodium Chloride 10 ml 12/09/20 17:51 Sodium Chloride 0.9% 10 Ml Flush Syringe IV PRN PRN LINE FLUSH
--- NOTE | 2020-12-14 08:34 | Progress Note ---
Assessment and Plan Assessment and plan: 50 yo F PMHx EtOH abuse presented to the hospital complaining of a bilateral lower extremity rash which began approximately 3 months prior to admission. She had been treated by her primary outpatient doctor for folliculitis over this timeframe with Bactrim, however there has been no change in the lesions. He complains of associated pruritus. She is reported to have abnormal blood counts on her labwork as an outpatient as well. Bilateral lower extremity skin lesions EtOH abuse/withdrawal Acute kidney injury secondary to vasomotor nephropathy Hypokalemia Transaminitis likely secondary to alcoholic hepatitis Folliculitis with leukocytosis 12/14/2020. ID switch Bactrim to vancomycin given lack of response. Heme-onc consultation History Interval history: No new issues overnight Hospitalist Physical - Constitutional Vitals: Temp Pulse Resp BP Pulse Ox 98.4 F 114 H 18 133/102 97 12/14/20 04:24 12/14/20 04:24 12/14/20 04:24 12/14/20 04:24 12/14/20 04:24 General appearance: Present: no acute distress, well-nourished, obese, other (More alert and comfortable today) - EENT Eyes: Present: PERRL, EOM intact ENT: hearing intact, clear oral mucosa, dentition normal - Neck Neck: Present: supple, normal ROM - Respiratory Respiratory effort: normal Respiratory: bilateral: CTA - Cardiovascular Rhythm: regular Heart Sounds: Present: S1 & S2. Absent: gallop, rub - Extremities Extremities: no ischemia, No edema, Full ROM - Abdominal General gastrointestinal: soft, non-tender, non-distended, normal bowel sounds - Integumentary Integumentary: Present: clear, warm, dry - Neurologic Neurologic: CNII-XII intact, moves all extremities Results - Labs CBC & Chem 7: 12/12/20 10:47 12/12/20 10:47 Labs: Laboratory Last Values WBC 14.9 K/mm3 (4.5-11.0) H 12/12/20 10:47 RBC 3.27 M/mm3 (3.65-5.03) L 12/12/20 10:47 Hgb 10.2 gm/dl (10.1-14.3) 12/12/20 10:47 Hct 32.2 % (30.3-42.9) 12/12/20 10:47 MCV 98 fl (79-97) H 12/12/20 10:47 MCH 31 pg (28-32) 12/12/20 10:47 MCHC 32 % (30-34) 12/12/20 10:47 RDW 16.7 % (13.2-15.2) H 12/12/20 10:47 Plt Count 526 K/mm3 (140-440) H 12/12/20 10:47 Lymph % (Auto) 15.0 % (13.4-35.0) 12/12/20 10:47 [place] % (Auto) 10.0 % (0.0-7.3) H 12/12/20 10:47 Eos % (Auto) 0.4 % (0.0-4.3) 12/12/20 10:47 Baso % (Auto) 0.4 % (0.0-1.8) 12/12/20 10:47 Lymph # (Auto) 2.2 K/mm3 (1.2-5.4) 12/12/20 10:47 [place] # (Auto) 1.5 K/mm3 (0.0-0.8) H 12/12/20 10:47 Eos # (Auto) 0.1 K/mm3 (0.0-0.4) 12/12/20 10:47 Baso # (Auto) 0.1 K/mm3 (0.0-0.1) 12/12/20 10:47 Add Manual Diff Complete 12/11/20 04:57 Total Counted 100 12/11/20 04:57 Seg Neutrophils % 74.2 % (40.0-70.0) H 12/12/20 10:47 Seg Neuts % (Manual) 81.0 % (40.0-70.0) H 12/11/20 04:57 Band Neutrophils % 4.0 % 12/11/20 04:57 Lymphocytes % (Manual) 9.0 % (13.4-35.0) L 12/11/20 04:57 Monocytes % (Manual) 5.0 % (0.0-7.3) 12/11/20 04:57 Metamyelocytes % 1.0 % 12/11/20 04:57 Nucleated RBC % Not Reportable 12/11/20 04:57 Seg Neutrophils # 11.0 K/mm3 (1.8-7.7) H 12/12/20 10:47 Seg Neutrophils # Man 13.0 K/mm3 (1.8-7.7) H 12/11/20 04:57 Band Neutrophils # 0.6 K/mm3 12/11/20 04:57 Lymphocytes # (Manual) 1.4 K/mm3 (1.2-5.4) 12/11/20 04:57 Abs React Lymphs (Man) 0.0 K/mm3 12/11/20 04:57 Monocytes # (Manual) 0.8 K/mm3 (0.0-0.8) 12/11/20 04:57 Eosinophils # (Manual) 0.0 K/mm3 (0.0-0.4) 12/11/20 04:57 Basophils # (Manual) 0.0 K/mm3 (0.0-0.1) 12/11/20 04:57 Metamyelocytes # 0.2 K/mm3 12/11/20 04:57 Myelocytes # 0.0 K/mm3 12/11/20 04:57 Promyelocytes # 0.0 K/mm3 12/11/20 04:57 Blast Cells # 0.0 K/mm3 12/11/20 04:57 WBC Morphology Not Reportable 12/11/20 04:57 WBC Morphology TNR 12/11/20 04:57 Hypersegmented Neuts Not Reportable 12/11/20 04:57 Hyposegmented Neuts Not Reportable 12/11/20 04:57 Hypogranular Neuts Not Reportable 12/11/20 04:57 Smudge Cells Not Reportable 12/11/20 04:57 Toxic Granulation Not Reportable 12/11/20 04:57 Toxic Vacuolation Not Reportable 12/11/20 04:57 Dohle Bodies Not Reportable 12/11/20 04:57 Pelger-Huet Anomaly Not Reportable 12/11/20 04:57 Sarah Rods Not Reportable 12/11/20 04:57 Platelet Estimate Not Reportable 12/11/20 04:57 Clumped Platelets Not Reportable 12/11/20 04:57 Plt Clumps, EDTA Not Reportable 12/11/20 04:57 Large Platelets Not Reportable 12/11/20 04:57 Giant Platelets Not Reportable 12/11/20 04:57 Platelet Satelliting Not Reportable 12/11/20 04:57 Plt Morphology Comment Not Reportable 12/11/20 04:57 RBC Morphology Not Reportable 12/11/20 04:57 Dimorphic RBCs Not Reportable 12/11/20 04:57 Polychromasia Not Reportable 12/11/20 04:57 Hypochromasia Not Reportable 12/11/20 04:57 Poikilocytosis Not Reportable 12/11/20 04:57 Anisocytosis Not Reportable 12/11/20 04:57 Microcytosis Not Reportable 12/11/20 04:57 Macrocytosis Not Reportable 12/11/20 04:57 Spherocytes Not Reportable 12/11/20 04:57 Pappenheimer Bodies Not Reportable 12/11/20 04:57 Sickle Cells Not Reportable 12/11/20 04:57 Target Cells Few 12/11/20 04:57 Tear Drop Cells Not Reportable 12/11/20 04:57 Ovalocytes Not Reportable 12/11/20 04:57 Helmet Cells Not Reportable 12/11/20 04:57 Zarate-[place]offat Bodies Not Reportable 12/11/20 04:57 [place] Rings Not Reportable 12/11/20 04:57 Sharifa Cells Not Reportable 12/11/20 04:57 Bite Cells Not Reportable 12/11/20 04:57 Crenated Cell Not Reportable 12/11/20 04:57 Elliptocytes Not Reportable 12/11/20 04:57 Acanthocytes (Spur) Not Reportable 12/11/20 04:57 Rouleaux Not Reportable 12/11/20 04:57 Hemoglobin C Crystals Not Reportable 12/11/20 04:57 Schistocytes Not Reportable 12/11/20 04:57 Malaria parasites Not Reportable 12/11/20 04:57 [place]ador Bodies Not Reportable 12/11/20 04:57 Hem Pathologist Commnt No 12/11/20 04:57 PT 15.7 Sec. (12.2-14.9) H 12/09/20 11:42 INR 1.13 (0.87-1.13) 12/09/20 11:42 APTT 34.8 Sec. (24.2-36.6) 12/09/20 11:42 Sodium 138 mmol/L (137-145) 12/12/20 10:47 Potassium 4.5 mmol/L (3.6-5.0) D 12/12/20 10:47 Chloride 100.8 mmol/L (98-107) 12/12/20 10:47 Carbon Dioxide 25 mmol/L (22-30) 12/12/20 10:47 Anion Gap 17 mmol/L 12/12/20 10:47 BUN < 1 mg/dL (7-17) L 12/12/20 10:47 Creatinine 0.3 mg/dL (0.6-1.2) L 12/12/20 10:47 Estimated GFR > 60 ml/min 12/12/20 10:47 BUN/Creatinine Ratio 3 % 12/12/20 10:47 Glucose 111 mg/dL (65-100) H 12/12/20 10:47 POC Glucose 110 mg/dL (70-105) H 12/11/20 16:28 Calcium 8.4 mg/dL (8.4-10.2) 12/12/20 10:47 Phosphorus 1.60 mg/dL (2.5-4.5) L 12/09/20 18:22 Magnesium 2.00 mg/dL (1.7-2.3) 12/09/20 18:22 Total Bilirubin 0.80 mg/dL (0.1-1.2) 12/12/20 10:47 AST 115 units/L (5-40) H 12/12/20 10:47 ALT 33 units/L (7-56) 12/12/20 10:47 Alkaline Phosphatase 259 units/L (35-129) H 12/12/20 10:47 Ammonia 81.0 umol/L (25-60) H 12/09/20 18:22 Total Creatine Kinase 26 units/L (30-135) L 12/09/20 11:42 Total Protein 6.3 g/dL (6.3-8.2) 12/12/20 10:47 Albumin 2.7 g/dL (3.9-5) L 12/12/20 10:47 Albumin/Globulin Ratio 0.8 % 12/12/20 10:47 Amylase 53 units/L (27-131) 12/09/20 18:22 TSH 1.150 mlU/mL (0.270-4.200) 12/09/20 11:42 HCG, Quant 2.97 mIU/mL (0-4) 12/09/20 11:42 Urine Color Yellow (Yellow) 12/12/20 12:16 Urine Turbidity Clear (Clear) 12/12/20 12:16 Urine pH 8.0 (5.0-7.0) H 12/12/20 12:16 Ur Specific [place] 1.005 (1.003-1.030) 12/12/20 12:16 Urine Protein 30 mg/dl mg/dL (Negative) 12/12/20 12:16 Urine Glucose (UA) Negative mg/dL (Negative) 12/12/20 12:16 Urine Ketones Negative mg/dL (Negative) 12/12/20 12:16 Urine Blood Negative (Negative) 12/12/20 12:16 Urine Nitrite Negative (Negative) 12/12/20 12:16 Ur Reducing Substances Not Reportable 12/12/20 12:16 Urine Bilirubin Small (Negative) 12/12/20 12:16 Urine Ictotest Negative (Negative) 12/12/20 12:16 Urine Urobilinogen Not Reportable 12/12/20 12:16 Ur Leukocyte Esterase Small (Negative) 12/12/20 12:16 Urine WBC (Auto) 2.0 /HPF (0.0-6.0) 12/12/20 12:16 Urine RBC (Auto) 2.0 /HPF (0.0-6.0) 12/12/20 12:16 U Epithel Cells (Auto) 3.0 /HPF (0-13.0) 12/12/20 12:16 Urine Mucus Few /HPF 12/12/20 12:16 Salicylates 1.9 mg/dL (2.8-20.0) L 12/09/20 11:42 Acetaminophen 5.0 ug/mL (10.0-30.0) L 12/09/20 11:42 Plasma/Serum Alcohol < 0.01 % (0-0.07) 12/09/20 11:42 [place]/IV: Voiding Method Bedside Commode Active Medications - Current Medications Current Medications: Generic Name Dose Route Start Last Admin Trade Name Freq PRN Reason Stop Dose Admin Acetaminophen 650 mg 12/09/20 17:51 12/13/20 07:26 Acetaminophen 325 Mg Tab PO 650 mg Q4H PRN Administration Pain MILD(1-3)/Fever >100.5/RENE Famotidine 20 mg 12/13/20 22:00 12/13/20 21:53 Famotidine 20 Mg Tab PO 20 mg BID JANICE Administration Gabapentin 800 mg 12/13/20 14:00 12/13/20 21:53 Gabapentin 400 Mg Cap PO 800 mg TID JANICE Administration Haloperidol Lactate 5 mg 12/09/20 17:54 Haloperidol Lactate 5 Mg/1 Ml Inj IV Q1H PRN Unrespon. to mult. doses BZD's Heparin Sodium (Porcine) 5,000 unit 12/09/20 22:00 12/13/20 21:53 Heparin 5,000 Unit/1 Ml Vial SUB-Q 5,000 unit Q12HR JANICE Administration Dextrose/Sodium Chloride 1,000 mls @ 100 mls/hr 12/09/20 18:00 12/13/20 13:58 D5ns IV 100 mls/hr DIRECT JANICE Administration Vancomycin HCl 1,250 mg/ 275 mls @ 166.667 mls/hr 12/14/20 03:00 12/14/20 03:05 Sodium Chloride IV 166.667 mls/hr Q12H JANICE Administration Lorazepam 2 mg 12/09/20 12:43 12/13/20 10:14 Lorazepam 2 Mg/Ml Vial IV 2 mg Q1HR PRN Administration CIWA-Ar 8-15 Lorazepam 4 mg 12/09/20 12:43 Lorazepam 2 Mg/Ml Vial IV Q1HR PRN CIWA-Ar 16-25 Lorazepam 4 mg 12/09/20 12:43 Lorazepam 2 Mg/Ml Vial IV Q15MIN PRN CIWA-Ar >25 Metoclopramide HCl 10 mg 12/09/20 17:51 Metoclopramide 10 Mg/2 Ml Inj IV Q6H PRN Nausea And Vomiting Ondansetron HCl 4 mg 12/09/20 17:51 Ondansetron 4 Mg/2 Ml Inj IV Q8H PRN Nausea And Vomiting Potassium Chloride 40 meq 12/14/20 10:00 Potassium Chloride 20 Meq Packet PO QDAY JANICE Sodium Chloride 10 ml 12/09/20 22:00 12/13/20 21:53 Sodium Chloride 0.9% 10 Ml Flush Syringe IV 10 ml BID JANICE Administration Sodium Chloride 10 ml 12/09/20 17:51 Sodium Chloride 0.9% 10 Ml Flush Syringe IV PRN PRN LINE FLUSH
[2020-12-14] MEDS: GABAPENTIN 400 MG CAP PO SCH ×3 (08:48→21:00)
[2020-12-14] MEDS: LORazepam 2 MG/ML VIAL IV PRN (08:48)
[2020-12-14] MEDS: FAMOTIDINE 20 MG TAB PO SCH ×2 (10:15→21:00)
[2020-12-14] MEDS: HEPARIN 5,000 UNIT/1 ML VIAL SUB-Q SCH ×2 (10:15→21:00)
[2020-12-14] MEDS: POTASSIUM CHLORIDE 20 MEQ PACKET PO SCH (10:15)
--- NOTE | 2020-12-14 13:02 | Hem/Onc Consultation ---
History of Present Illness - Reason for Consult Consult date: 12/14/20 BLE rash - History of Present Illness Heme consult note televisit via [facility] CPT 56442 Dx BLE Rash This is a 50yo female who presents to the ED for evaluation of a pruritic skin rash and lesions on bilateral lower extremities that have been present for 3 months States she is an alcoholic Drinks 2-3 drinks/day As per patient, outpatient PCP states rash is folliculitis--treated with hydroxyzine and bactrim Requesting medical clearance ----- Hgb electrophoresis negative Abd u/s 12/12 c/w moderate hepatomegaly with diffuse steatosis As per patient, grapefruit size fibroid diagnosed in 2014 H/o of heavy menstrual cycles requiring multiple transfusions Hemoglobin 2 in 2018 Pruritic dark lesions noted on BLE from ankles to knees, 1 on right arm, and 1 on right ear DATA REVIEWED BELOW WBC 14.9 AST 115 Alk Phos 259 Ammonia 81 IMP: Transaminitis due to excessive alcohol intake 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 r/o PCT Leukocytosis possibly related to cutaneous process, doubt heme malignancy REC/PLAN: Labs to include total porphyrins in plasma or serum total urine porphyrin on a spot urine can also be used AM labs to include retic, ldh, iron panel , CBC Recommend wildlife manager consult No need for skin biopsy Laboratory Last Values WBC 14.9 K/mm3 (4.5-11.0) H 12/12/20 10:47 Hgb 10.2 gm/dl (10.1-14.3) 12/12/20 10:47 Hct 32.2 % (30.3-42.9) 12/12/20 10:47 MCV 98 fl (79-97) H 12/12/20 10:47 Plt Count 526 K/mm3 (140-440) H 12/12/20 10:47 Lymph % (Auto) 15.0 % (13.4-35.0) 12/12/20 10:47 [place] % (Auto) 10.0 % (0.0-7.3) H 12/12/20 10:47 Eos % (Auto) 0.4 % (0.0-4.3) 12/12/20 10:47 Baso % (Auto) 0.4 % (0.0-1.8) 12/12/20 10:47 Lymph # (Auto) 2.2 K/mm3 (1.2-5.4) 12/12/20 10:47 [place] # (Auto) 1.5 K/mm3 (0.0-0.8) H 12/12/20 10:47 Eos # (Auto) 0.1 K/mm3 (0.0-0.4) 12/12/20 10:47 Baso # (Auto) 0.1 K/mm3 (0.0-0.1) 12/12/20 10:47 Add Manual Diff Complete 12/11/20 04:57 Total Counted 100 12/11/20 04:57 Seg Neutrophils % 74.2 % (40.0-70.0) H 12/12/20 10:47 Seg Neuts % (Manual) 81.0 % (40.0-70.0) H 12/11/20 04:57 Band Neutrophils % 4.0 % 12/11/20 04:57 Lymphocytes % (Manual) 9.0 % (13.4-35.0) L 12/11/20 04:57 Monocytes % (Manual) 5.0 % (0.0-7.3) 12/11/20 04:57 Metamyelocytes % 1.0 % 12/11/20 04:57 Nucleated RBC % Not Reportable 12/11/20 04:57 Seg Neutrophils # 11.0 K/mm3 (1.8-7.7) H 12/12/20 10:47 Seg Neutrophils # Man 13.0 K/mm3 (1.8-7.7) H 12/11/20 04:57 Band Neutrophils # 0.6 K/mm3 12/11/20 04:57 Lymphocytes # (Manual) 1.4 K/mm3 (1.2-5.4) 12/11/20 04:57 Abs React Lymphs (Man) 0.0 K/mm3 12/11/20 04:57 Monocytes # (Manual) 0.8 K/mm3 (0.0-0.8) 12/11/20 04:57 Eosinophils # (Manual) 0.0 K/mm3 (0.0-0.4) 12/11/20 04:57 Basophils # (Manual) 0.0 K/mm3 (0.0-0.1) 12/11/20 04:57 Metamyelocytes # 0.2 K/mm3 12/11/20 04:57 Myelocytes # 0.0 K/mm3 12/11/20 04:57 Promyelocytes # 0.0 K/mm3 12/11/20 04:57 Blast Cells # 0.0 K/mm3 12/11/20 04:57 WBC Morphology Not Reportable 12/11/20 04:57 WBC Morphology TNR 12/11/20 04:57 Hypersegmented Neuts Not Reportable 12/11/20 04:57 Hyposegmented Neuts Not Reportable 12/11/20 04:57 Hypogranular Neuts Not Reportable 12/11/20 04:57 Smudge Cells Not Reportable 12/11/20 04:57 Toxic Granulation Not Reportable 12/11/20 04:57 Toxic Vacuolation Not Reportable 12/11/20 04:57 Dohle Bodies Not Reportable 12/11/20 04:57 Pelger-Huet Anomaly Not Reportable 12/11/20 04:57 Sarah Rods Not Reportable 12/11/20 04:57 Platelet Estimate Not Reportable 12/11/20 04:57 Clumped Platelets Not Reportable 12/11/20 04:57 Plt Clumps, EDTA Not Reportable 12/11/20 04:57 Large Platelets Not Reportable 12/11/20 04:57 Giant Platelets Not Reportable 12/11/20 04:57 Platelet Satelliting Not Reportable 12/11/20 04:57 Plt Morphology Comment Not Reportable 12/11/20 04:57 RBC Morphology Not Reportable 12/11/20 04:57 Dimorphic RBCs Not Reportable 12/11/20 04:57 Polychromasia Not Reportable 12/11/20 04:57 Hypochromasia Not Reportable 12/11/20 04:57 Poikilocytosis Not Reportable 12/11/20 04:57 Anisocytosis Not Reportable 12/11/20 04:57 Microcytosis Not Reportable 12/11/20 04:57 Macrocytosis Not Reportable 12/11/20 04:57 Spherocytes Not Reportable 12/11/20 04:57 Pappenheimer Bodies Not Reportable 12/11/20 04:57 Sickle Cells Not Reportable 12/11/20 04:57 Target Cells Few 12/11/20 04:57 Tear Drop Cells Not Reportable 12/11/20 04:57 Ovalocytes Not Reportable 12/11/20 04:57 Helmet Cells Not Reportable 12/11/20 04:57 Zarate-[place] Bodies Not Reportable 12/11/20 04:57 [place] Rings Not Reportable 12/11/20 04:57 Sharifa Cells Not Reportable 12/11/20 04:57 Bite Cells Not Reportable 12/11/20 04:57 Crenated Cell Not Reportable 12/11/20 04:57 Elliptocytes Not Reportable 12/11/20 04:57 Acanthocytes (Spur) Not Reportable 12/11/20 04:57 Rouleaux Not Reportable 12/11/20 04:57 Hemoglobin C Crystals Not Reportable 12/11/20 04:57 Schistocytes Not Reportable 12/11/20 04:57 Malaria parasites Not Reportable 12/11/20 04:57 [place] Bodies Not Reportable 12/11/20 04:57 Hem Pathologist Commnt No 12/11/20 04:57 PT 15.7 Sec. (12.2-14.9) H 12/09/20 11:42 INR 1.13 (0.87-1.13) 12/09/20 11:42 APTT 34.8 Sec. (24.2-36.6) 12/09/20 11:42 Creatinine 0.3 mg/dL (0.6-1.2) L 12/12/20 10:47 AST 115 units/L (5-40) H 12/12/20 10:47 ALT 33 units/L (7-56) 12/12/20 10:47 Alkaline Phosphatase 259 units/L (35-129) H 12/12/20 10:47 Ammonia 81.0 umol/L (25-60) H 12/09/20 18:22 Total Creatine Kinase 26 units/L (30-135) L 12/09/20 11:42 Albumin 2.7 g/dL (3.9-5) L 12/12/20 10:47 Albumin/Globulin Ratio 0.8 % 12/12/20 10:47 Amylase 53 units/L (27-131) 12/09/20 18:22 Medications and Allergies Allergies Allergy/AdvReac Type Severity Reaction Status Date / Time No Known Allergies Allergy Unverified 12/09/20 11:18 Home Medications Medication Instructions Recorded Confirmed Last Taken Type No Known Home Medications [No 12/14/20 12/14/20 Unknown History Reported Home Medications] Active Meds: Active Medications Acetaminophen (Acetaminophen 325 Mg Tab) 650 mg PO Q4H PRN PRN Reason: Pain MILD(1-3)/Fever >100.5/RENE Last Admin: 12/13/20 07:26 Dose: 650 mg Documented by: Famotidine (Famotidine 20 Mg Tab) 20 mg PO BID [facility] Last Admin: 12/14/20 10:15 Dose: 20 mg Documented by: Gabapentin (Gabapentin 400 Mg Cap) 800 mg PO TID [facility] Last Admin: 12/14/20 08:48 Dose: 800 mg Documented by: Haloperidol Lactate (Haloperidol Lactate 5 Mg/1 Ml Inj) 5 mg IV Q1H PRN PRN Reason: Unrespon. to mult. doses BZD's Heparin Sodium (Porcine) (Heparin 5,000 Unit/1 Ml Vial) 5,000 unit SUB-Q Q12HR [facility] Last Admin: 12/14/20 10:15 Dose: 5,000 unit Documented by: Dextrose/Sodium Chloride (D5ns) 1,000 mls @ 100 mls/hr IV DIRECT [facility] Last Admin: 12/13/20 13:58 Dose: 100 mls/hr Documented by: Vancomycin HCl 1,250 mg/ (Sodium Chloride) 275 mls @ 166.667 mls/hr IV Q12H [facility] Last Admin: 12/14/20 03:05 Dose: 166.667 mls/hr Documented by: Lorazepam (Lorazepam 2 Mg/Ml Vial) 2 mg IV Q1HR PRN PRN Reason: CIWA-Ar 8-15 Last Admin: 12/14/20 08:48 Dose: 2 mg Documented by: Lorazepam (Lorazepam 2 Mg/Ml Vial) 4 mg IV Q1HR PRN PRN Reason: CIWA-Ar 16-25 Lorazepam (Lorazepam 2 Mg/Ml Vial) 4 mg IV Q15MIN PRN PRN Reason: CIWA-Ar >25 Metoclopramide HCl (Metoclopramide 10 Mg/2 Ml Inj) 10 mg IV Q6H PRN PRN Reason: Nausea And Vomiting Ondansetron HCl (Ondansetron 4 Mg/2 Ml Inj) 4 mg IV Q8H PRN PRN Reason: Nausea And Vomiting Potassium Chloride (Potassium Chloride 20 Meq Packet) 40 meq PO QDAY [facility] Last Admin: 12/14/20 10:15 Dose: 40 meq Documented by: Sodium Chloride (Sodium Chloride 0.9% 10 Ml Flush Syringe) 10 ml IV BID [facility] Last Admin: 12/14/20 10:16 Dose: 10 ml Documented by: Sodium Chloride (Sodium Chloride 0.9% 10 Ml Flush Syringe) 10 ml IV PRN PRN PRN Reason: LINE FLUSH Exam - Constitutional Vitals: Last Vital Signs Temp 98.2 F 12/14/20 08:27 Pulse 108 H 12/14/20 08:33 Resp 18 12/14/20 08:27 BP 137/101 12/14/20 08:27 Pulse Ox 100 12/14/20 08:33
--- NOTE | 2020-12-14 14:05 | Progress Note ---
Assessment and Plan Cultures: None A/P: 50 yo F PMHx PMHx EtOH abuse presents tot [facility] with bilateral lower extremity rash. #Bilateral LE skin lesions: has been treated as outpatient and now inpatient for folliculitis with no response to antibiotics. Am concerned this is a non- infectious cause. Will continue antibiotics for now given leukocytosis, but given lack of response so far may need heme/onc consult (cutaneous sign of hematologic malignancy given persistent leukocytosis?) and potential skin biopsy. #EtOH abuse: psych onboard Recs: -Continue vancomycin given lack of response to bactrim, though likely short course as probably non-infectious cause -Recommend skin biopsy. Thank you for the consult, we will continue to follow. Gustavo Arceo MD [facility] ([facility]) O: [phone] F: [phone] Subjective Date of service: 12/14/20 Principal diagnosis: Severe hypokalemia, delirium tremens, peripheral neuropathy Interval history: Afebrile with persistent white count. Minimally participative in the interview. remains at bedside. Objective - Exam Narrative Exam: Physical Exam: Constitutional: Alert, cooperative. No acute distress Head, Ears, Nose: Normocephalic, atraumatic. External ears, nose normal Eyes: Conjunctivae/corneas clear. No icterus. No ptosis. Neck: Supple, no meningeal signs Oral: dentition fair, no thrush Cardiovascular: S1, S2 normal. Respiratory: Good air entry, clear to auscultation bilaterally GI: Soft, non-tender; bowel sounds normal. No peritoneal signs. Musculoskeletal: No pedal edema, no cyanosis. Skin: Non-tender papules on bilateral legs and extensor forearm/elbows. Hem/Lymphatic: No palpable cervical or supraclavicular nodes. No lymphangitis Psych: Mood ok. Affect normal Neurological: Awake, alert, oriented. No gross abnormality - Constitutional Vitals: Vital Signs Temp Pulse Resp BP Pulse Ox 98.2 F 108 H 18 137/101 100 12/14/20 08:27 12/14/20 08:33 12/14/20 08:27 12/14/20 08:27 12/14/20 08:33 Temperature -Last 24 Hours Temperature 98.2 F Temperature 98.4 F Temperature 98.4 F Temperature 98.4 F Temperature 98.2 F - Labs CBC & Chem 7: 12/12/20 10:47 12/12/20 10:47
[2020-12-14] MEDS: ACETAMINOPHEN 325 MG TAB PO PRN (18:37)
[2020-12-15] MEDS: VANCOMYCIN 1,250 MG in SODIUM CHLORIDE 0.9% 250ML 250 ML IV SCH ×3 (01:55→15:44)
[2020-12-15] MEDS: ACETAMINOPHEN 325 MG TAB PO PRN (05:40)
[2020-12-15 06:54] LABS: Basophils % (Auto) 0.3 % (0.0-1.8); Eosinophils # (Auto) 0.1 K/mm3 (0.0-0.4); Eosinophils % (Auto) 0.9 % (0.0-4.3); Lymphocytes # (Auto) 1.8 K/mm3 (1.2-5.4); Lymphocytes % (Auto) 11.8 % (13.4-35.0); Mean Corpuscular HGB Conc 31 % (30-34); Mean Corpuscular Volume 98 fl (79-97); Monocytes # (Auto) 1.4 K/mm3 (0.0-0.8); Monocytes % (Auto) 9.1 % (0.0-7.3); Platelet Count 698 K/mm3 (140-440); Red Blood Count 3.85 M/mm3 (3.65-5.03); Red Cell Distribution Width 17.2 % (13.2-15.2)
[2020-12-15 06:55] LABS: Hematocrit 37.8 % (30.3-42.9); Hemoglobin 11.6 gm/dl (10.1-14.3)
[2020-12-15 07:14] LABS: Iron 31 ug/dL (37-170); Total Iron Binding Capacity 140 mcg/dL (250-450)
[2020-12-15 08:26] LABS: Blood Urea Nitrogen 5 mg/dL (7-17); Calcium 8.8 mg/dL (8.4-10.2); Hemolysis Index 12
[2020-12-15 08:27] LABS: BUN/Creatinine Ratio 13
[2020-12-15] MEDS: GABAPENTIN 400 MG CAP PO SCH ×3 (08:40→21:52)
[2020-12-15] MEDS: HEPARIN 5,000 UNIT/1 ML VIAL SUB-Q SCH ×2 (09:16→21:52)
[2020-12-15] MEDS: POTASSIUM CHLORIDE 20 MEQ PACKET PO SCH (09:17)
[2020-12-15] MEDS: FAMOTIDINE 20 MG TAB PO SCH ×2 (09:17→21:52)
[2020-12-15] MEDS: LORazepam 2 MG/ML VIAL IV PRN ×2 (09:18→21:53)
--- NOTE | 2020-12-15 10:37 | Progress Note ---
Assessment and Plan Assessment and plan: 50 yo F PMHx EtOH abuse presented to the hospital complaining of a bilateral lower extremity rash which began approximately 3 months prior to admission. She had been treated by her primary outpatient doctor for folliculitis over this timeframe with Bactrim, however there has been no change in the lesions. He complains of associated pruritus. She is reported to have abnormal blood counts on her labwork as an outpatient as well. Bilateral lower extremity skin lesions Accelerated hypertension EtOH abuse/withdrawal Acute kidney injury secondary to vasomotor nephropathy Hypokalemia Transaminitis likely secondary to alcoholic hepatitis Folliculitis with leukocytosis 12/14/2020. ID switch Bactrim to vancomycin given lack of response. Heme-onc consultation 12/15/2020. Hematology following. Follow-up laboratory total porphyrins and plasma resumed. Follow-up reticulocyte count, LDH, iron panel and CBC. ID recommends continuing vancomycin for now.? Skin biopsy. Start labetalol for e levated BP. History Interval history: No new issues overnight Hospitalist Physical - Constitutional Vitals: Temp Pulse Resp BP Pulse Ox 98.4 F 105 H 18 146/109 100 12/15/20 07:44 12/15/20 07:44 12/15/20 07:44 12/15/20 07:44 12/15/20 07:44 General appearance: Present: no acute distress, well-nourished, obese, other (More alert and comfortable today) - EENT Eyes: Present: PERRL, EOM intact ENT: hearing intact, clear oral mucosa, dentition normal - Neck Neck: Present: supple, normal ROM - Respiratory Respiratory effort: normal Respiratory: bilateral: CTA - Cardiovascular Rhythm: regular Heart Sounds: Present: S1 & S2. Absent: gallop, rub - Extremities Extremities: no ischemia, No edema, Full ROM - Abdominal General gastrointestinal: soft, non-tender, non-distended, normal bowel sounds - Integumentary Integumentary: Present: clear, warm, dry - Neurologic Neurologic: CNII-XII intact, moves all extremities Results - Labs CBC & Chem 7: 12/15/20 06:05 12/15/20 06:05 Labs: Laboratory Last Values WBC 15.5 K/mm3 (4.5-11.0) H 12/15/20 06:05 RBC 3.85 M/mm3 (3.65-5.03) 12/15/20 06:05 Hgb 11.6 gm/dl (10.1-14.3) 12/15/20 06:05 Hct 37.8 % (30.3-42.9) 12/15/20 06:05 MCV 98 fl (79-97) H 12/15/20 06:05 MCH 30 pg (28-32) 12/15/20 06:05 MCHC 31 % (30-34) 12/15/20 06:05 RDW 17.2 % (13.2-15.2) H 12/15/20 06:05 Plt Count 698 K/mm3 (140-440) H 12/15/20 06:05 Lymph % (Auto) 11.8 % (13.4-35.0) L 12/15/20 06:05 [place] % (Auto) 9.1 % (0.0-7.3) H 12/15/20 06:05 Eos % (Auto) 0.9 % (0.0-4.3) 12/15/20 06:05 Baso % (Auto) 0.3 % (0.0-1.8) 12/15/20 06:05 Lymph # (Auto) 1.8 K/mm3 (1.2-5.4) 12/15/20 06:05 [place] # (Auto) 1.4 K/mm3 (0.0-0.8) H 12/15/20 06:05 Eos # (Auto) 0.1 K/mm3 (0.0-0.4) 12/15/20 06:05 Baso # (Auto) 0.0 K/mm3 (0.0-0.1) 12/15/20 06:05 Add Manual Diff Complete 12/11/20 04:57 Total Counted 100 12/11/20 04:57 Seg Neutrophils % 77.9 % (40.0-70.0) H 12/15/20 06:05 Seg Neuts % (Manual) 81.0 % (40.0-70.0) H 12/11/20 04:57 Band Neutrophils % 4.0 % 12/11/20 04:57 Lymphocytes % (Manual) 9.0 % (13.4-35.0) L 12/11/20 04:57 Monocytes % (Manual) 5.0 % (0.0-7.3) 12/11/20 04:57 Metamyelocytes % 1.0 % 12/11/20 04:57 Nucleated RBC % Not Reportable 12/11/20 04:57 Seg Neutrophils # 12.1 K/mm3 (1.8-7.7) H 12/15/20 06:05 Seg Neutrophils # Man 13.0 K/mm3 (1.8-7.7) H 12/11/20 04:57 Band Neutrophils # 0.6 K/mm3 12/11/20 04:57 Lymphocytes # (Manual) 1.4 K/mm3 (1.2-5.4) 12/11/20 04:57 Abs React Lymphs (Man) 0.0 K/mm3 12/11/20 04:57 Monocytes # (Manual) 0.8 K/mm3 (0.0-0.8) 12/11/20 04:57 Eosinophils # (Manual) 0.0 K/mm3 (0.0-0.4) 12/11/20 04:57 Basophils # (Manual) 0.0 K/mm3 (0.0-0.1) 12/11/20 04:57 Metamyelocytes # 0.2 K/mm3 12/11/20 04:57 Myelocytes # 0.0 K/mm3 12/11/20 04:57 Promyelocytes # 0.0 K/mm3 12/11/20 04:57 Blast Cells # 0.0 K/mm3 12/11/20 04:57 WBC Morphology Not Reportable 12/11/20 04:57 WBC Morphology TNR 12/11/20 04:57 Hypersegmented Neuts Not Reportable 12/11/20 04:57 Hyposegmented Neuts Not Reportable 12/11/20 04:57 Hypogranular Neuts Not Reportable 12/11/20 04:57 Smudge Cells Not Reportable 12/11/20 04:57 Toxic Granulation Not Reportable 12/11/20 04:57 Toxic Vacuolation Not Reportable 12/11/20 04:57 Dohle Bodies Not Reportable 12/11/20 04:57 Pelger-Huet Anomaly Not Reportable 12/11/20 04:57 Sarah Rods Not Reportable 12/11/20 04:57 Platelet Estimate Not Reportable 12/11/20 04:57 Clumped Platelets Not Reportable 12/11/20 04:57 Plt Clumps, EDTA Not Reportable 12/11/20 04:57 Large Platelets Not Reportable 12/11/20 04:57 Giant Platelets Not Reportable 12/11/20 04:57 Platelet Satelliting Not Reportable 12/11/20 04:57 Plt Morphology Comment Not Reportable 12/11/20 04:57 RBC Morphology Not Reportable 12/11/20 04:57 Dimorphic RBCs Not Reportable 12/11/20 04:57 Polychromasia Not Reportable 12/11/20 04:57 Hypochromasia Not Reportable 12/11/20 04:57 Poikilocytosis Not Reportable 12/11/20 04:57 Anisocytosis Not Reportable 12/11/20 04:57 Microcytosis Not Reportable 12/11/20 04:57 Macrocytosis Not Reportable 12/11/20 04:57 Spherocytes Not Reportable 12/11/20 04:57 Pappenheimer Bodies Not Reportable 12/11/20 04:57 Sickle Cells Not Reportable 12/11/20 04:57 Target Cells Few 12/11/20 04:57 Tear Drop Cells Not Reportable 12/11/20 04:57 Ovalocytes Not Reportable 12/11/20 04:57 Helmet Cells Not Reportable 12/11/20 04:57 [place] Bodies Not Reportable 12/11/20 04:57 [employer] Rings Not Reportable 12/11/20 04:57 Sharifa Cells Not Reportable 12/11/20 04:57 Bite Cells Not Reportable 12/11/20 04:57 Crenated Cell Not Reportable 12/11/20 04:57 Elliptocytes Not Reportable 12/11/20 04:57 Acanthocytes (Spur) Not Reportable 12/11/20 04:57 Rouleaux Not Reportable 12/11/20 04:57 Hemoglobin C Crystals Not Reportable 12/11/20 04:57 Schistocytes Not Reportable 12/11/20 04:57 Malaria parasites Not Reportable 12/11/20 04:57 Percent Retic 5.04 % (0.78-2.58) H 12/15/20 06:05 [place] Bodies Not Reportable 12/11/20 04:57 Hem Pathologist Commnt No 12/11/20 04:57 PT 15.7 Sec. (12.2-14.9) H 12/09/20 11:42 INR 1.13 (0.87-1.13) 12/09/20 11:42 APTT 34.8 Sec. (24.2-36.6) 12/09/20 11:42 Sodium 140 mmol/L (137-145) 12/15/20 06:05 Potassium 4.0 mmol/L (3.6-5.0) 12/15/20 06:05 Chloride 102.4 mmol/L (98-107) 12/15/20 06:05 Carbon Dioxide 22 mmol/L (22-30) 12/15/20 06:05 Anion Gap 20 mmol/L 12/15/20 06:05 BUN 5 mg/dL (7-17) L 12/15/20 06:05 Creatinine 0.4 mg/dL (0.6-1.2) L 12/15/20 06:05 Estimated GFR > 60 ml/min 12/15/20 06:05 BUN/Creatinine Ratio 13 % 12/15/20 06:05 Glucose 108 mg/dL (65-100) H 12/15/20 06:05 POC Glucose 110 mg/dL (70-105) H 12/11/20 16:28 Calcium 8.8 mg/dL (8.4-10.2) 12/15/20 06:05 Phosphorus 1.60 mg/dL (2.5-4.5) L 12/09/20 18:22 Magnesium 2.00 mg/dL (1.7-2.3) 12/09/20 18:22 Iron 31 ug/dL (37-170) L 12/15/20 06:05 TIBC 140 mcg/dL (250-450) L 12/15/20 06:05 Total Bilirubin 0.80 mg/dL (0.1-1.2) 12/12/20 10:47 AST 115 units/L (5-40) H 12/12/20 10:47 ALT 33 units/L (7-56) 12/12/20 10:47 Alkaline Phosphatase 259 units/L (35-129) H 12/12/20 10:47 Ammonia 81.0 umol/L (25-60) H 12/09/20 18:22 Lactate Dehydrogenase 271 units/L (91-180) H 12/15/20 06:05 Total Creatine Kinase 26 units/L (30-135) L 12/09/20 11:42 Total Protein 6.3 g/dL (6.3-8.2) 12/12/20 10:47 Albumin 2.7 g/dL (3.9-5) L 12/12/20 10:47 Albumin/Globulin Ratio 0.8 % 12/12/20 10:47 Amylase 53 units/L (27-131) 12/09/20 18:22 TSH 1.150 mlU/mL (0.270-4.200) 12/09/20 11:42 HCG, Quant 2.97 mIU/mL (0-4) 12/09/20 11:42 Urine Color Yellow (Yellow) 12/12/20 12:16 Urine Turbidity Clear (Clear) 12/12/20 12:16 Urine pH 8.0 (5.0-7.0) H 12/12/20 12:16 Ur Specific [place] 1.005 (1.003-1.030) 12/12/20 12:16 Urine Protein 30 mg/dl mg/dL (Negative) 12/12/20 12:16 Urine Glucose (UA) Negative mg/dL (Negative) 12/12/20 12:16 Urine Ketones Negative mg/dL (Negative) 12/12/20 12:16 Urine Blood Negative (Negative) 12/12/20 12:16 Urine Nitrite Negative (Negative) 12/12/20 12:16 Ur Reducing Substances Not Reportable 12/12/20 12:16 Urine Bilirubin Small (Negative) 12/12/20 12:16 Urine Ictotest Negative (Negative) 12/12/20 12:16 Urine Urobilinogen Not Reportable 12/12/20 12:16 Ur Leukocyte Esterase Small (Negative) 12/12/20 12:16 Urine WBC (Auto) 2.0 /HPF (0.0-6.0) 12/12/20 12:16 Urine RBC (Auto) 2.0 /HPF (0.0-6.0) 12/12/20 12:16 U Epithel Cells (Auto) 3.0 /HPF (0-13.0) 12/12/20 12:16 Urine Mucus Few /HPF 12/12/20 12:16 Salicylates 1.9 mg/dL (2.8-20.0) L 12/09/20 11:42 Acetaminophen 5.0 ug/mL (10.0-30.0) L 12/09/20 11:42 Plasma/Serum Alcohol < 0.01 % (0-0.07) 12/09/20 11:42 [place]/IV: Voiding Method External Female Catheter Active Medications - Current Medications Current Medications: Generic Name Dose Route Start Last Admin Trade Name Freq PRN Reason Stop Dose Admin Acetaminophen 650 mg 12/09/20 17:51 12/15/20 05:40 Acetaminophen 325 Mg Tab PO 650 mg Q4H PRN Administration Pain MILD(1-3)/Fever >100.5/RENE Famotidine 20 mg 12/13/20 22:00 12/15/20 09:17 Famotidine 20 Mg Tab PO 20 mg BID JANICE Administration Gabapentin 800 mg 12/13/20 14:00 12/15/20 08:40 Gabapentin 400 Mg Cap PO 800 mg TID JANICE Administration Haloperidol Lactate 5 mg 12/09/20 17:54 Haloperidol Lactate 5 Mg/1 Ml Inj IV Q1H PRN Unrespon. to mult. doses BZD's Heparin Sodium (Porcine) 5,000 unit 12/09/20 22:00 12/15/20 09:16 Heparin 5,000 Unit/1 Ml Vial SUB-Q 5,000 unit Q12HR JANICE Administration Dextrose/Sodium Chloride 1,000 mls @ 100 mls/hr 12/09/20 18:00 12/13/20 13:58 D5ns IV 100 mls/hr DIRECT JANICE Administration Vancomycin HCl 1,250 mg/ 275 mls @ 166.667 mls/hr 12/14/20 03:00 12/15/20 02:00 Sodium Chloride IV 166.667 mls/hr Q12H JANICE Administration Lorazepam 2 mg 12/09/20 12:43 12/15/20 09:18 Lorazepam 2 Mg/Ml Vial IV 2 mg Q1HR PRN Administration CIWA-Ar 8-15 Lorazepam 4 mg 12/09/20 12:43 Lorazepam 2 Mg/Ml Vial IV Q1HR PRN CIWA-Ar 16-25 Lorazepam 4 mg 12/09/20 12:43 Lorazepam 2 Mg/Ml Vial IV Q15MIN PRN CIWA-Ar >25 Metoclopramide HCl 10 mg 12/09/20 17:51 Metoclopramide 10 Mg/2 Ml Inj IV Q6H PRN Nausea And Vomiting Ondansetron HCl 4 mg 12/09/20 17:51 Ondansetron 4 Mg/2 Ml Inj IV Q8H PRN Nausea And Vomiting Potassium Chloride 40 meq 12/14/20 10:00 12/15/20 09:17 Potassium Chloride 20 Meq Packet PO 40 meq QDAY JANICE Administration Sodium Chloride 10 ml 12/09/20 22:00 12/15/20 09:18 Sodium Chloride 0.9% 10 Ml Flush Syringe IV 10 ml BID JANICE Administration Sodium Chloride 10 ml 12/09/20 17:51 Sodium Chloride 0.9% 10 Ml Flush Syringe IV PRN PRN LINE FLUSH
--- NOTE | 2020-12-15 15:31 | Progress Note ---
Assessment and Plan Cultures: None A/P: 50 yo F PMHx PMHx EtOH abuse presents tot [facility] with bilateral lower extremity rash. #Bilateral LE skin lesions: has been treated as outpatient and now inpatient for folliculitis with no response to antibiotics. Am concerned this is a non- infectious cause. Will continue antibiotics for now given leukocytosis, but given lack of response so far I doubt acute infectious process. #EtOH abuse: psych onboard Recs: -Continue vancomycin given lack of response to bactrim, though likely short course as probably non-infectious cause. Complete 5 days Thank you for the consult, we will continue to follow. Gustavo Arceo MD [facility] ([facility]) O: [phone] F: [phone] Subjective Date of service: 12/15/20 Principal diagnosis: Severe hypokalemia, delirium tremens, peripheral neuropathy Interval history: Afebrile, white count 15.5 despite antibiotics. Objective - Exam Narrative Exam: Physical Exam: Constitutional: Alert, cooperative. No acute distress Head, Ears, Nose: Normocephalic, atraumatic. External ears, nose normal Eyes: Conjunctivae/corneas clear. No icterus. No ptosis. Neck: Supple, no meningeal signs Oral: dentition fair, no thrush Cardiovascular: S1, S2 normal. Respiratory: Good air entry, clear to auscultation bilaterally GI: Soft, non-tender; bowel sounds normal. No peritoneal signs. Musculoskeletal: No pedal edema, no cyanosis. Skin: Non-tender papules on bilateral legs and extensor forearm/elbows. Hem/Lymphatic: No palpable cervical or supraclavicular nodes. No lymphangitis Psych: Mood ok. Affect normal Neurological: Awake, alert, oriented. No gross abnormality - Constitutional Vitals: Vital Signs Temp Pulse Resp BP Pulse Ox 98.4 F 109 H 18 146/109 100 12/15/20 07:44 12/15/20 10:00 12/15/20 07:44 12/15/20 07:44 12/15/20 07:44 Temperature -Last 24 Hours Temperature 98.4 F Temperature 98.0 F Temperature 98.4 F Temperature 97.6 F Temperature 97.7 F - Labs CBC & Chem 7: 12/15/20 06:05 12/15/20 06:05 Labs: Abnormal lab results 12/15/20 12/15/20 12/15/20 Range/Units 06:05 06:05 06:05 WBC 15.5 H (4.5-11.0) K/mm3 MCV 98 H (79-97) fl RDW 17.2 H (13.2-15.2) % Plt Count 698 H (140-440) K/mm3 Lymph % (Auto) 11.8 L (13.4-35.0) % [place] % (Auto) 9.1 H (0.0-7.3) % [place] # (Auto) 1.4 H (0.0-0.8) K/mm3 Seg Neutrophils % 77.9 H (40.0-70.0) % Seg Neutrophils # 12.1 H (1.8-7.7) K/mm3 Percent Retic 5.04 H (0.78-2.58) % BUN 5 L (7-17) mg/dL Creatinine 0.4 L (0.6-1.2) mg/dL Glucose 108 H (65-100) mg/dL Iron 31 L (37-170) ug/dL TIBC 140 L (250-450) mcg/dL Lactate Dehydrogenase 271 H (91-180) units/L
[2020-12-16] MEDS: VANCOMYCIN 1,250 MG in SODIUM CHLORIDE 0.9% 250ML 250 ML IV SCH ×2 (04:01→16:22)
--- NOTE | 2020-12-16 09:54 | Progress Note ---
Assessment and Plan Assessment and plan: 50 yo F PMHx EtOH abuse presented to the hospital complaining of a bilateral lower extremity rash which began approximately 3 months prior to admission. She had been treated by her primary outpatient doctor for folliculitis over this timeframe with Bactrim, however there has been no change in the lesions. He complains of associated pruritus. She is reported to have abnormal blood counts on her labwork as an outpatient as well. Bilateral lower extremity skin lesions Accelerated hypertension EtOH abuse/withdrawal Acute kidney injury secondary to vasomotor nephropathy Hypokalemia Transaminitis likely secondary to alcoholic hepatitis Folliculitis with leukocytosis 12/14/2020. ID switch Bactrim to vancomycin given lack of response. Heme-onc consultation 12/15/2020. Hematology following. Follow-up laboratory total porphyrins and plasma resumed. Follow-up reticulocyte count, LDH, iron panel and CBC. ID recommends continuing vancomycin for now.? Skin biopsy. Start labetalol for e levated BP. 12/16/2020. Follow-up laboratory total porphyrins and plasma. Follow-up reticulocyte count, LDH, iron panel and CBC. ID recommends continuing vancomycin until 12/19. No need for skin biopsy per hematology. History Interval history: No new issues overnight Hospitalist Physical - Constitutional Vitals: Temp Pulse Resp BP Pulse Ox 98.4 F 85 20 136/90 99 12/16/20 08:07 12/16/20 08:07 12/16/20 08:07 12/16/20 08:07 12/16/20 08:07 General appearance: Present: no acute distress, well-nourished, obese, other (More alert and comfortable today) - EENT Eyes: Present: PERRL, EOM intact ENT: hearing intact, clear oral mucosa, dentition normal - Neck Neck: Present: supple, normal ROM - Respiratory Respiratory effort: normal Respiratory: bilateral: CTA - Cardiovascular Rhythm: regular Heart Sounds: Present: S1 & S2. Absent: gallop, rub - Extremities Extremities: no ischemia, No edema, Full ROM - Abdominal General gastrointestinal: soft, non-tender, non-distended, normal bowel sounds - Integumentary Integumentary: Present: clear, warm, dry - Neurologic Neurologic: CNII-XII intact, moves all extremities Results - Labs CBC & Chem 7: 12/15/20 06:05 12/15/20 06:05 Labs: Laboratory Last Values WBC 15.5 K/mm3 (4.5-11.0) H 12/15/20 06:05 RBC 3.85 M/mm3 (3.65-5.03) 12/15/20 06:05 Hgb 11.6 gm/dl (10.1-14.3) 12/15/20 06:05 Hct 37.8 % (30.3-42.9) 12/15/20 06:05 MCV 98 fl (79-97) H 12/15/20 06:05 MCH 30 pg (28-32) 12/15/20 06:05 MCHC 31 % (30-34) 12/15/20 06:05 RDW 17.2 % (13.2-15.2) H 12/15/20 06:05 Plt Count 698 K/mm3 (140-440) H 12/15/20 06:05 Lymph % (Auto) 11.8 % (13.4-35.0) L 12/15/20 06:05 [place] % (Auto) 9.1 % (0.0-7.3) H 12/15/20 06:05 Eos % (Auto) 0.9 % (0.0-4.3) 12/15/20 06:05 Baso % (Auto) 0.3 % (0.0-1.8) 12/15/20 06:05 Lymph # (Auto) 1.8 K/mm3 (1.2-5.4) 12/15/20 06:05 [place] # (Auto) 1.4 K/mm3 (0.0-0.8) H 12/15/20 06:05 Eos # (Auto) 0.1 K/mm3 (0.0-0.4) 12/15/20 06:05 Baso # (Auto) 0.0 K/mm3 (0.0-0.1) 12/15/20 06:05 Add Manual Diff Complete 12/11/20 04:57 Total Counted 100 12/11/20 04:57 Seg Neutrophils % 77.9 % (40.0-70.0) H 12/15/20 06:05 Seg Neuts % (Manual) 81.0 % (40.0-70.0) H 12/11/20 04:57 Band Neutrophils % 4.0 % 12/11/20 04:57 Lymphocytes % (Manual) 9.0 % (13.4-35.0) L 12/11/20 04:57 Monocytes % (Manual) 5.0 % (0.0-7.3) 12/11/20 04:57 Metamyelocytes % 1.0 % 12/11/20 04:57 Nucleated RBC % Not Reportable 12/11/20 04:57 Seg Neutrophils # 12.1 K/mm3 (1.8-7.7) H 12/15/20 06:05 Seg Neutrophils # Man 13.0 K/mm3 (1.8-7.7) H 12/11/20 04:57 Band Neutrophils # 0.6 K/mm3 12/11/20 04:57 Lymphocytes # (Manual) 1.4 K/mm3 (1.2-5.4) 12/11/20 04:57 Abs React Lymphs (Man) 0.0 K/mm3 12/11/20 04:57 Monocytes # (Manual) 0.8 K/mm3 (0.0-0.8) 12/11/20 04:57 Eosinophils # (Manual) 0.0 K/mm3 (0.0-0.4) 12/11/20 04:57 Basophils # (Manual) 0.0 K/mm3 (0.0-0.1) 12/11/20 04:57 Metamyelocytes # 0.2 K/mm3 12/11/20 04:57 Myelocytes # 0.0 K/mm3 12/11/20 04:57 Promyelocytes # 0.0 K/mm3 12/11/20 04:57 Blast Cells # 0.0 K/mm3 12/11/20 04:57 WBC Morphology Not Reportable 12/11/20 04:57 WBC Morphology TNR 12/11/20 04:57 Hypersegmented Neuts Not Reportable 12/11/20 04:57 Hyposegmented Neuts Not Reportable 12/11/20 04:57 Hypogranular Neuts Not Reportable 12/11/20 04:57 Smudge Cells Not Reportable 12/11/20 04:57 Toxic Granulation Not Reportable 12/11/20 04:57 Toxic Vacuolation Not Reportable 12/11/20 04:57 Dohle Bodies Not Reportable 12/11/20 04:57 Pelger-Huet Anomaly Not Reportable 12/11/20 04:57 Sarah Rods Not Reportable 12/11/20 04:57 Platelet Estimate Not Reportable 12/11/20 04:57 Clumped Platelets Not Reportable 12/11/20 04:57 Plt Clumps, EDTA Not Reportable 12/11/20 04:57 Large Platelets Not Reportable 12/11/20 04:57 Giant Platelets Not Reportable 12/11/20 04:57 Platelet Satelliting Not Reportable 12/11/20 04:57 Plt Morphology Comment Not Reportable 12/11/20 04:57 RBC Morphology Not Reportable 12/11/20 04:57 Dimorphic RBCs Not Reportable 12/11/20 04:57 Polychromasia Not Reportable 12/11/20 04:57 Hypochromasia Not Reportable 12/11/20 04:57 Poikilocytosis Not Reportable 12/11/20 04:57 Anisocytosis Not Reportable 12/11/20 04:57 Microcytosis Not Reportable 12/11/20 04:57 Macrocytosis Not Reportable 12/11/20 04:57 Spherocytes Not Reportable 12/11/20 04:57 Pappenheimer Bodies Not Reportable 12/11/20 04:57 Sickle Cells Not Reportable 12/11/20 04:57 Target Cells Few 12/11/20 04:57 Tear Drop Cells Not Reportable 12/11/20 04:57 Ovalocytes Not Reportable 12/11/20 04:57 Helmet Cells Not Reportable 12/11/20 04:57 [place] Bodies Not Reportable 12/11/20 04:57 [place] Rings Not Reportable 12/11/20 04:57 Sharifa Cells Not Reportable 12/11/20 04:57 Bite Cells Not Reportable 12/11/20 04:57 Crenated Cell Not Reportable 12/11/20 04:57 Elliptocytes Not Reportable 12/11/20 04:57 Acanthocytes (Spur) Not Reportable 12/11/20 04:57 Rouleaux Not Reportable 12/11/20 04:57 Hemoglobin C Crystals Not Reportable 12/11/20 04:57 Schistocytes Not Reportable 12/11/20 04:57 Malaria parasites Not Reportable 12/11/20 04:57 Percent Retic 5.04 % (0.78-2.58) H 12/15/20 06:05 [place] Bodies Not Reportable 12/11/20 04:57 Hem Pathologist Commnt No 12/11/20 04:57 PT 15.7 Sec. (12.2-14.9) H 12/09/20 11:42 INR 1.13 (0.87-1.13) 12/09/20 11:42 APTT 34.8 Sec. (24.2-36.6) 12/09/20 11:42 Sodium 140 mmol/L (137-145) 12/15/20 06:05 Potassium 4.0 mmol/L (3.6-5.0) 12/15/20 06:05 Chloride 102.4 mmol/L (98-107) 12/15/20 06:05 Carbon Dioxide 22 mmol/L (22-30) 12/15/20 06:05 Anion Gap 20 mmol/L 12/15/20 06:05 BUN 5 mg/dL (7-17) L 12/15/20 06:05 Creatinine 0.4 mg/dL (0.6-1.2) L 12/15/20 06:05 Estimated GFR > 60 ml/min 12/15/20 06:05 BUN/Creatinine Ratio 13 % 12/15/20 06:05 Glucose 108 mg/dL (65-100) H 12/15/20 06:05 POC Glucose 110 mg/dL (70-105) H 12/11/20 16:28 Calcium 8.8 mg/dL (8.4-10.2) 12/15/20 06:05 Phosphorus 1.60 mg/dL (2.5-4.5) L 12/09/20 18:22 Magnesium 2.00 mg/dL (1.7-2.3) 12/09/20 18:22 Iron 31 ug/dL (37-170) L 12/15/20 06:05 TIBC 140 mcg/dL (250-450) L 12/15/20 06:05 Total Bilirubin 0.80 mg/dL (0.1-1.2) 12/12/20 10:47 AST 115 units/L (5-40) H 12/12/20 10:47 ALT 33 units/L (7-56) 12/12/20 10:47 Alkaline Phosphatase 259 units/L (35-129) H 12/12/20 10:47 Ammonia 81.0 umol/L (25-60) H 12/09/20 18:22 Lactate Dehydrogenase 271 units/L (91-180) H 12/15/20 06:05 Total Creatine Kinase 26 units/L (30-135) L 12/09/20 11:42 Total Protein 6.3 g/dL (6.3-8.2) 12/12/20 10:47 Albumin 2.7 g/dL (3.9-5) L 12/12/20 10:47 Albumin/Globulin Ratio 0.8 % 12/12/20 10:47 Amylase 53 units/L (27-131) 12/09/20 18:22 TSH 1.150 mlU/mL (0.270-4.200) 12/09/20 11:42 HCG, Quant 2.97 mIU/mL (0-4) 12/09/20 11:42 Urine Color Yellow (Yellow) 12/12/20 12:16 Urine Turbidity Clear (Clear) 12/12/20 12:16 Urine pH 8.0 (5.0-7.0) H 12/12/20 12:16 Ur Specific [place] 1.005 (1.003-1.030) 12/12/20 12:16 Urine Protein 30 mg/dl mg/dL (Negative) 12/12/20 12:16 Urine Glucose (UA) Negative mg/dL (Negative) 12/12/20 12:16 Urine Ketones Negative mg/dL (Negative) 12/12/20 12:16 Urine Blood Negative (Negative) 12/12/20 12:16 Urine Nitrite Negative (Negative) 12/12/20 12:16 Ur Reducing Substances Not Reportable 12/12/20 12:16 Urine Bilirubin Small (Negative) 12/12/20 12:16 Urine Ictotest Negative (Negative) 12/12/20 12:16 Urine Urobilinogen Not Reportable 12/12/20 12:16 Ur Leukocyte Esterase Small (Negative) 12/12/20 12:16 Urine WBC (Auto) 2.0 /HPF (0.0-6.0) 12/12/20 12:16 Urine RBC (Auto) 2.0 /HPF (0.0-6.0) 12/12/20 12:16 U Epithel Cells (Auto) 3.0 /HPF (0-13.0) 12/12/20 12:16 Urine Mucus Few /HPF 12/12/20 12:16 Salicylates 1.9 mg/dL (2.8-20.0) L 12/09/20 11:42 Acetaminophen 5.0 ug/mL (10.0-30.0) L 12/09/20 11:42 Plasma/Serum Alcohol < 0.01 % (0-0.07) 12/09/20 11:42 Villasenor/IV: Voiding Method Toilet Active Medications - Current Medications Current Medications: Generic Name Dose Route Start Last Admin Trade Name Freq PRN Reason Stop Dose Admin Acetaminophen 650 mg 12/09/20 17:51 12/15/20 05:40 Acetaminophen 325 Mg Tab PO 650 mg Q4H PRN Administration Pain MILD(1-3)/Fever >100.5/RENE Famotidine 20 mg 12/13/20 22:00 12/15/20 21:52 Famotidine 20 Mg Tab PO 20 mg BID JANICE Administration Gabapentin 800 mg 12/13/20 14:00 12/15/20 21:52 Gabapentin 400 Mg Cap PO 800 mg TID JANICE Administration Haloperidol Lactate 5 mg 12/09/20 17:54 Haloperidol Lactate 5 Mg/1 Ml Inj IV Q1H PRN Unrespon. to mult. doses BZD's Heparin Sodium (Porcine) 5,000 unit 12/09/20 22:00 12/15/20 21:52 Heparin 5,000 Unit/1 Ml Vial SUB-Q 5,000 unit Q12HR JANICE Administration Dextrose/Sodium Chloride 1,000 mls @ 100 mls/hr 12/09/20 18:00 12/13/20 13:58 D5ns IV 100 mls/hr DIRECT JANICE Administration Vancomycin HCl 1,250 mg/ 275 mls @ 166.667 mls/hr 12/14/20 03:00 12/16/20 04:01 Sodium Chloride IV 12/17/20 16:38 166.667 mls/hr Q12H JANICE Administration Labetalol HCl 200 mg 12/15/20 22:00 12/15/20 21:52 Labetalol 200 Mg Tab PO 200 mg BID JANICE Administration Lorazepam 2 mg 12/09/20 12:43 12/15/20 21:53 Lorazepam 2 Mg/Ml Vial IV 2 mg Q1HR PRN Administration CIWA-Ar 8-15 Lorazepam 4 mg 12/09/20 12:43 Lorazepam 2 Mg/Ml Vial IV Q1HR PRN CIWA-Ar 16-25 Lorazepam 4 mg 12/09/20 12:43 Lorazepam 2 Mg/Ml Vial IV Q15MIN PRN CIWA-Ar >25 Metoclopramide HCl 10 mg 12/09/20 17:51 Metoclopramide 10 Mg/2 Ml Inj IV Q6H PRN Nausea And Vomiting Ondansetron HCl 4 mg 12/09/20 17:51 Ondansetron 4 Mg/2 Ml Inj IV Q8H PRN Nausea And Vomiting Potassium Chloride 40 meq 12/14/20 10:00 12/15/20 09:17 Potassium Chloride 20 Meq Packet PO 40 meq QDAY JANICE Administration Sodium Chloride 10 ml 12/09/20 22:00 12/15/20 21:54 Sodium Chloride 0.9% 10 Ml Flush Syringe IV 10 ml BID JANICE Administration Sodium Chloride 10 ml 12/09/20 17:51 Sodium Chloride 0.9% 10 Ml Flush Syringe IV PRN PRN LINE FLUSH
[2020-12-16] MEDS: FAMOTIDINE 20 MG TAB PO SCH ×2 (10:23→21:41)
[2020-12-16] MEDS: GABAPENTIN 400 MG CAP PO SCH ×3 (10:23→20:43)
[2020-12-16] MEDS: POTASSIUM CHLORIDE 20 MEQ PACKET PO SCH (10:24)
[2020-12-16] MEDS: HEPARIN 5,000 UNIT/1 ML VIAL SUB-Q SCH ×2 (10:25→21:41)
--- NOTE | 2020-12-16 12:26 | Progress Note ---
Assessment and Plan Cultures: None A/P: 50 yo F PMHx PMHx EtOH abuse presents tot [facility] with bilateral lower extremity rash. #Bilateral LE skin lesions: has been treated as outpatient and now inpatient for folliculitis with no response to antibiotics. Am concerned this is a non- infectious cause. Will continue antibiotics for now given leukocytosis, but given lack of response so far I doubt acute infectious process. #EtOH abuse: psych onboard Recs: -Continue vancomycin given lack of response to bactrim, though likely short course as probably non-infectious cause. Complete 5 days Thank you for the consult, we will continue to follow. Gustavo Arceo MD [facility] ([facility]) O: [phone] F: [phone] Subjective Date of service: 12/16/20 Principal diagnosis: Severe hypokalemia, delirium tremens, peripheral neuropathy Interval history: Afebrile, no acute change. Objective - Exam Narrative Exam: Physical Exam: Constitutional: Alert, cooperative. No acute distress Head, Ears, Nose: Normocephalic, atraumatic. External ears, nose normal Eyes: Conjunctivae/corneas clear. No icterus. No ptosis. Neck: Supple, no meningeal signs Oral: dentition fair, no thrush Cardiovascular: S1, S2 normal. Respiratory: Good air entry, clear to auscultation bilaterally GI: Soft, non-tender; bowel sounds normal. No peritoneal signs. Musculoskeletal: No pedal edema, no cyanosis. Skin: Non-tender papules on bilateral legs and extensor forearm/elbows. Hem/Lymphatic: No palpable cervical or supraclavicular nodes. No lymphangitis Psych: Mood ok. Affect normal Neurological: Awake, alert, oriented. No gross abnormality - Constitutional Vitals: Vital Signs Temp Pulse Resp BP Pulse Ox 98.0 F 82 20 113/71 97 12/16/20 11:44 12/16/20 11:44 12/16/20 11:44 12/16/20 11:44 12/16/20 11:44 Temperature -Last 24 Hours Temperature 98.0 F Temperature 98.4 F Temperature 97.5 F Temperature 99.1 F Temperature 98.7 F Temperature 98.3 F - Labs CBC & Chem 7: 12/15/20 06:05 12/15/20 06:05
--- NOTE | 2020-12-16 13:00 | Hem/Onc Progress Note ---
Subjective Date of service: 12/16/20 Interval history: Heme progress note televisit via [facility] CPT 50147 Dx BLE Rash This is a 50yo female who presents to the ED for evaluation of a pruritic skin rash and lesions on bilateral lower extremities that have been present for 3 months States she is an alcoholic Drinks 2-3 drinks/day As per patient, outpatient PCP states rash is folliculitis--treated with hydroxyzine and bactrim Requesting medical clearance ----- Hgb electrophoresis negative Abd u/s 12/12 c/w moderate hepatomegaly with diffuse steatosis As per patient, grapefruit size fibroid diagnosed in 2014 H/o of heavy menstrual cycles requiring multiple transfusions Hemoglobin 2 in 2018 Pruritic dark lesions noted on BLE from ankles to knees, 1 on right arm, and 1 on right ear DATA REVIEWED BELOW WBC 15.5 Plts 698 AST 115 Alk Phos 259 Ammonia 81 IMP: Transaminitis due to excessive alcohol intake 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 (12.2-14.9) H 12/09/20 11:42 INR 1.13 (0.87-1.13) 12/09/20 11:42 APTT 34.8 Sec. (24.2-36.6) 12/09/20 11:42 Iron 31 ug/dL (37-170) L 12/15/20 06:05 TIBC 140 mcg/dL (250-450) L 12/15/20 06:05 AST 115 units/L (5-40) H 12/12/20 10:47 ALT 33 units/L (7-56) 12/12/20 10:47 Alkaline Phosphatase 259 units/L (35-129) H 12/12/20 10:47 Ammonia 81.0 umol/L (25-60) H 12/09/20 18:22 Lactate Dehydrogenase 271 units/L (91-180) H 12/15/20 06:05 Objective - Constitutional Vitals: Last Vital Signs Temp 98.0 F 12/16/20 11:44 Pulse 82 12/16/20 11:44 Resp 20 12/16/20 11:44 BP 113/71 12/16/20 11:44 Pulse Ox 97 12/16/20 11:44 Medications & Allergies - Medications Allergies/Adverse Reactions: Allergies No Known Allergies Allergy (Verified 12/15/20 10:31) Home Medications: Home Medications Medication Instructions Recorded Confirmed Last Taken Type Acetaminophen/Diphenhydramine 2 tab PO HS 12/15/20 12/15/20 12/08/20 History [Tylenol Pm Ex-Strength Caplet] Aspirin/Caffeine [Bc Powder Packet] 1 - 2 each PO QDAY 12/15/20 12/15/20 12/08/20 History [employer] Foot Cream 1 cream TP QDAY 12/15/20 12/15/20 12/08/20 History [employer] Cream 1 cream TP BID 12/15/20 12/15/20 12/08/20 History isopropyl alcohoL [Rubbing Alcohol] 5 ml TP QDAY 12/15/20 12/15/20 12/08/20 History witch Yosef [Witch Yosef] 5 ml TP QDAY 12/15/20 12/15/20 12/08/20 History Active Medications: Generic Name Dose Route Start Last Admin Trade Name Freq PRN Reason Stop Dose Admin Acetaminophen 650 mg 12/09/20 17:51 12/15/20 05:40 Acetaminophen 325 Mg Tab PO 650 mg Q4H PRN Administration Pain MILD(1-3)/Fever >100.5/RENE Famotidine 20 mg 12/13/20 22:00 12/16/20 10:23 Famotidine 20 Mg Tab PO 20 mg BID JANICE Administration Gabapentin 800 mg 12/13/20 14:00 12/16/20 10:23 Gabapentin 400 Mg Cap PO 800 mg TID JANICE Administration Haloperidol Lactate 5 mg 12/09/20 17:54 Haloperidol Lactate 5 Mg/1 Ml Inj IV Q1H PRN Unrespon. to mult. doses BZD's Heparin Sodium (Porcine) 5,000 unit 12/09/20 22:00 12/16/20 10:25 Heparin 5,000 Unit/1 Ml Vial SUB-Q 5,000 unit Q12HR JANICE Administration Dextrose/Sodium Chloride 1,000 mls @ 100 mls/hr 12/09/20 18:00 12/13/20 13:58 D5ns IV 100 mls/hr DIRECT JANICE Administration Vancomycin HCl 1,250 mg/ 275 mls @ 166.667 mls/hr 12/14/20 03:00 12/16/20 04:01 Sodium Chloride IV 12/17/20 16:38 166.667 mls/hr Q12H JANICE Administration Labetalol HCl 200 mg 12/15/20 22:00 12/16/20 10:24 Labetalol 200 Mg Tab PO 200 mg BID JANICE Administration Lorazepam 2 mg 12/09/20 12:43 12/15/20 21:53 Lorazepam 2 Mg/Ml Vial IV 2 mg Q1HR PRN Administration CIWA-Ar 8-15 Lorazepam 4 mg 12/09/20 12:43 Lorazepam 2 Mg/Ml Vial IV Q1HR PRN CIWA-Ar 16-25 Lorazepam 4 mg 12/09/20 12:43 Lorazepam 2 Mg/Ml Vial IV Q15MIN PRN CIWA-Ar >25 Metoclopramide HCl 10 mg 12/09/20 17:51 Metoclopramide 10 Mg/2 Ml Inj IV Q6H PRN Nausea And Vomiting Ondansetron HCl 4 mg 12/09/20 17:51 Ondansetron 4 Mg/2 Ml Inj IV Q8H PRN Nausea And Vomiting Potassium Chloride 40 meq 12/14/20 10:00 12/16/20 10:24 Potassium Chloride 20 Meq Packet PO 40 meq QDAY JANICE Administration Sodium Chloride 10 ml 12/09/20 22:00 12/16/20 10:25 Sodium Chloride 0.9% 10 Ml Flush Syringe IV 10 ml BID JANICE Administration Sodium Chloride 10 ml 12/09/20 17:51 Sodium Chloride 0.9% 10 Ml Flush Syringe IV PRN PRN LINE FLUSH
[2020-12-16] MEDS: LORazepam 2 MG/ML VIAL IV PRN (13:39)
[2020-12-16] MEDS: ACETAMINOPHEN 325 MG TAB PO PRN (16:30)
[2020-12-17] MEDS: LORazepam 2 MG/ML VIAL IV PRN ×3 (00:18→21:18)
[2020-12-17] MEDS: VANCOMYCIN 1,250 MG in SODIUM CHLORIDE 0.9% 250ML 250 ML IV SCH ×2 (03:17→15:45)
[2020-12-17] MEDS: D5W/0.9% NACL 1,000 ML IV SCH (03:21)
[2020-12-17] MEDS: HEPARIN 5,000 UNIT/1 ML VIAL SUB-Q SCH ×2 (10:00→21:19)
[2020-12-17] MEDS: FAMOTIDINE 20 MG TAB PO SCH ×2 (10:02→21:18)
[2020-12-17] MEDS: GABAPENTIN 400 MG CAP PO SCH ×3 (10:02→21:18)
[2020-12-17] MEDS: POTASSIUM CHLORIDE 20 MEQ PACKET PO SCH (10:05)
--- NOTE | 2020-12-17 10:08 | Progress Note ---
Assessment and Plan Assessment and plan: 50 yo F PMHx EtOH abuse presented to the hospital complaining of a bilateral lower extremity rash which began approximately 3 months prior to admission. She had been treated by her primary outpatient doctor for folliculitis over this timeframe with Bactrim, however there has been no change in the lesions. He complains of associated pruritus. She is reported to have abnormal blood counts on her labwork as an outpatient as well. Bilateral lower extremity skin lesions Accelerated hypertension EtOH abuse/withdrawal Acute kidney injury secondary to vasomotor nephropathy Hypokalemia Transaminitis likely secondary to alcoholic hepatitis Folliculitis with leukocytosis 12/14/2020. ID switch Bactrim to vancomycin given lack of response. Heme-onc consultation 12/15/2020. Hematology following. Follow-up laboratory total porphyrins and plasma resumed. Follow-up reticulocyte count, LDH, iron panel and CBC. ID recommends continuing vancomycin for now.? Skin biopsy. Start labetalol for e levated BP. 12/16/2020. Follow-up laboratory total porphyrins and plasma. Follow-up reticulocyte count, LDH, iron panel and CBC. ID recommends continuing vancomycin until 12/19. No need for skin biopsy per hematology. 12/17/2020. Consult GI for cirrhosis. Continue IV antibiotics until Sunday per ID recommendations. No need for skin biopsy per hematology. Leukocytosis persists History Interval history: No new issues overnight Hospitalist Physical - Constitutional Vitals: Temp Pulse Resp BP Pulse Ox 98.2 F 85 18 123/89 99 12/17/20 07:44 12/17/20 07:44 12/17/20 07:44 12/17/20 07:44 12/17/20 07:44 General appearance: Present: no acute distress, well-nourished, obese, other (More alert and comfortable today) - EENT Eyes: Present: PERRL, EOM intact ENT: hearing intact, clear oral mucosa, dentition normal - Neck Neck: Present: supple, normal ROM - Respiratory Respiratory effort: normal Respiratory: bilateral: CTA - Cardiovascular Rhythm: regular Heart Sounds: Present: S1 & S2. Absent: gallop, rub - Extremities Extremities: no ischemia, No edema, Full ROM - Abdominal General gastrointestinal: soft, non-tender, non-distended, normal bowel sounds - Integumentary Integumentary: Present: clear, warm, dry - Neurologic Neurologic: CNII-XII intact, moves all extremities Results - Labs CBC & Chem 7: 12/15/20 06:05 12/15/20 06:05 Labs: Laboratory Last Values WBC 15.5 K/mm3 (4.5-11.0) H 12/15/20 06:05 RBC 3.85 M/mm3 (3.65-5.03) 12/15/20 06:05 Hgb 11.6 gm/dl (10.1-14.3) 12/15/20 06:05 Hct 37.8 % (30.3-42.9) 12/15/20 06:05 MCV 98 fl (79-97) H 12/15/20 06:05 MCH 30 pg (28-32) 12/15/20 06:05 MCHC 31 % (30-34) 12/15/20 06:05 RDW 17.2 % (13.2-15.2) H 12/15/20 06:05 Plt Count 698 K/mm3 (140-440) H 12/15/20 06:05 Lymph % (Auto) 11.8 % (13.4-35.0) L 12/15/20 06:05 [place] % (Auto) 9.1 % (0.0-7.3) H 12/15/20 06:05 Eos % (Auto) 0.9 % (0.0-4.3) 12/15/20 06:05 Baso % (Auto) 0.3 % (0.0-1.8) 12/15/20 06:05 Lymph # (Auto) 1.8 K/mm3 (1.2-5.4) 12/15/20 06:05 [place] # (Auto) 1.4 K/mm3 (0.0-0.8) H 12/15/20 06:05 Eos # (Auto) 0.1 K/mm3 (0.0-0.4) 12/15/20 06:05 Baso # (Auto) 0.0 K/mm3 (0.0-0.1) 12/15/20 06:05 Add Manual Diff Complete 12/11/20 04:57 Total Counted 100 12/11/20 04:57 Seg Neutrophils % 77.9 % (40.0-70.0) H 12/15/20 06:05 Seg Neuts % (Manual) 81.0 % (40.0-70.0) H 12/11/20 04:57 Band Neutrophils % 4.0 % 12/11/20 04:57 Lymphocytes % (Manual) 9.0 % (13.4-35.0) L 12/11/20 04:57 Monocytes % (Manual) 5.0 % (0.0-7.3) 12/11/20 04:57 Metamyelocytes % 1.0 % 12/11/20 04:57 Nucleated RBC % Not Reportable 12/11/20 04:57 Seg Neutrophils # 12.1 K/mm3 (1.8-7.7) H 12/15/20 06:05 Seg Neutrophils # Man 13.0 K/mm3 (1.8-7.7) H 12/11/20 04:57 Band Neutrophils # 0.6 K/mm3 12/11/20 04:57 Lymphocytes # (Manual) 1.4 K/mm3 (1.2-5.4) 12/11/20 04:57 Abs React Lymphs (Man) 0.0 K/mm3 12/11/20 04:57 Monocytes # (Manual) 0.8 K/mm3 (0.0-0.8) 12/11/20 04:57 Eosinophils # (Manual) 0.0 K/mm3 (0.0-0.4) 12/11/20 04:57 Basophils # (Manual) 0.0 K/mm3 (0.0-0.1) 12/11/20 04:57 Metamyelocytes # 0.2 K/mm3 12/11/20 04:57 Myelocytes # 0.0 K/mm3 12/11/20 04:57 Promyelocytes # 0.0 K/mm3 12/11/20 04:57 Blast Cells # 0.0 K/mm3 12/11/20 04:57 WBC Morphology Not Reportable 12/11/20 04:57 WBC Morphology TNR 12/11/20 04:57 Hypersegmented Neuts Not Reportable 12/11/20 04:57 Hyposegmented Neuts Not Reportable 12/11/20 04:57 Hypogranular Neuts Not Reportable 12/11/20 04:57 Smudge Cells Not Reportable 12/11/20 04:57 Toxic Granulation Not Reportable 12/11/20 04:57 Toxic Vacuolation Not Reportable 12/11/20 04:57 Dohle Bodies Not Reportable 12/11/20 04:57 Pelger-Huet Anomaly Not Reportable 12/11/20 04:57 Sarah Rods Not Reportable 12/11/20 04:57 Platelet Estimate Not Reportable 12/11/20 04:57 Clumped Platelets Not Reportable 12/11/20 04:57 Plt Clumps, EDTA Not Reportable 12/11/20 04:57 Large Platelets Not Reportable 12/11/20 04:57 Giant Platelets Not Reportable 12/11/20 04:57 Platelet Satelliting Not Reportable 12/11/20 04:57 Plt Morphology Comment Not Reportable 12/11/20 04:57 RBC Morphology Not Reportable 12/11/20 04:57 Dimorphic RBCs Not Reportable 12/11/20 04:57 Polychromasia Not Reportable 12/11/20 04:57 Hypochromasia Not Reportable 12/11/20 04:57 Poikilocytosis Not Reportable 12/11/20 04:57 Anisocytosis Not Reportable 12/11/20 04:57 Microcytosis Not Reportable 12/11/20 04:57 Macrocytosis Not Reportable 12/11/20 04:57 Spherocytes Not Reportable 12/11/20 04:57 Pappenheimer Bodies Not Reportable 12/11/20 04:57 Sickle Cells Not Reportable 12/11/20 04:57 Target Cells Few 12/11/20 04:57 Tear Drop Cells Not Reportable 12/11/20 04:57 Ovalocytes Not Reportable 12/11/20 04:57 Helmet Cells Not Reportable 12/11/20 04:57 Zarate-Pinhook Bodies Not Reportable 12/11/20 04:57 [place] Rings Not Reportable 12/11/20 04:57 [place] Cells Not Reportable 12/11/20 04:57 Bite Cells Not Reportable 12/11/20 04:57 Crenated Cell Not Reportable 12/11/20 04:57 Elliptocytes Not Reportable 12/11/20 04:57 Acanthocytes (Spur) Not Reportable 12/11/20 04:57 Rouleaux Not Reportable 12/11/20 04:57 Hemoglobin C Crystals Not Reportable 12/11/20 04:57 Schistocytes Not Reportable 12/11/20 04:57 Malaria parasites Not Reportable 12/11/20 04:57 Percent Retic 5.04 % (0.78-2.58) H 12/15/20 06:05 [place] Bodies Not Reportable 12/11/20 04:57 Hem Pathologist Commnt No 12/11/20 04:57 PT 15.7 Sec. (12.2-14.9) H 12/09/20 11:42 INR 1.13 (0.87-1.13) 12/09/20 11:42 APTT 34.8 Sec. (24.2-36.6) 12/09/20 11:42 Sodium 140 mmol/L (137-145) 12/15/20 06:05 Potassium 4.0 mmol/L (3.6-5.0) 12/15/20 06:05 Chloride 102.4 mmol/L (98-107) 12/15/20 06:05 Carbon Dioxide 22 mmol/L (22-30) 12/15/20 06:05 Anion Gap 20 mmol/L 12/15/20 06:05 BUN 5 mg/dL (7-17) L 12/15/20 06:05 Creatinine 0.4 mg/dL (0.6-1.2) L 12/15/20 06:05 Estimated GFR > 60 ml/min 12/15/20 06:05 BUN/Creatinine Ratio 13 % 12/15/20 06:05 Glucose 108 mg/dL (65-100) H 12/15/20 06:05 POC Glucose 110 mg/dL (70-105) H 12/11/20 16:28 Calcium 8.8 mg/dL (8.4-10.2) 12/15/20 06:05 Phosphorus 1.60 mg/dL (2.5-4.5) L 12/09/20 18:22 Magnesium 2.00 mg/dL (1.7-2.3) 12/09/20 18:22 Iron 31 ug/dL (37-170) L 12/15/20 06:05 TIBC 140 mcg/dL (250-450) L 12/15/20 06:05 Total Bilirubin 0.80 mg/dL (0.1-1.2) 12/12/20 10:47 AST 115 units/L (5-40) H 12/12/20 10:47 ALT 33 units/L (7-56) 12/12/20 10:47 Alkaline Phosphatase 259 units/L (35-129) H 12/12/20 10:47 Ammonia 81.0 umol/L (25-60) H 12/09/20 18:22 Lactate Dehydrogenase 271 units/L (91-180) H 12/15/20 06:05 Total Creatine Kinase 26 units/L (30-135) L 12/09/20 11:42 Total Protein 6.3 g/dL (6.3-8.2) 12/12/20 10:47 Albumin 2.7 g/dL (3.9-5) L 12/12/20 10:47 Albumin/Globulin Ratio 0.8 % 12/12/20 10:47 Amylase 53 units/L (27-131) 12/09/20 18:22 TSH 1.150 mlU/mL (0.270-4.200) 12/09/20 11:42 HCG, Quant 2.97 mIU/mL (0-4) 12/09/20 11:42 Urine Color Yellow (Yellow) 12/12/20 12:16 Urine Turbidity Clear (Clear) 12/12/20 12:16 Urine pH 8.0 (5.0-7.0) H 12/12/20 12:16 Ur Specific [place] 1.005 (1.003-1.030) 12/12/20 12:16 Urine Protein 30 mg/dl mg/dL (Negative) 12/12/20 12:16 Urine Glucose (UA) Negative mg/dL (Negative) 12/12/20 12:16 Urine Ketones Negative mg/dL (Negative) 12/12/20 12:16 Urine Blood Negative (Negative) 12/12/20 12:16 Urine Nitrite Negative (Negative) 12/12/20 12:16 Ur Reducing Substances Not Reportable 12/12/20 12:16 Urine Bilirubin Small (Negative) 12/12/20 12:16 Urine Ictotest Negative (Negative) 12/12/20 12:16 Urine Urobilinogen Not Reportable 12/12/20 12:16 Ur Leukocyte Esterase Small (Negative) 12/12/20 12:16 Urine WBC (Auto) 2.0 /HPF (0.0-6.0) 12/12/20 12:16 Urine RBC (Auto) 2.0 /HPF (0.0-6.0) 12/12/20 12:16 U Epithel Cells (Auto) 3.0 /HPF (0-13.0) 12/12/20 12:16 Urine Mucus Few /HPF 12/12/20 12:16 Salicylates 1.9 mg/dL (2.8-20.0) L 12/09/20 11:42 Acetaminophen 5.0 ug/mL (10.0-30.0) L 12/09/20 11:42 Plasma/Serum Alcohol < 0.01 % (0-0.07) 12/09/20 11:42 [place]/IV: Voiding Method Toilet Active Medications - Current Medications Current Medications: Generic Name Dose Route Start Last Admin Trade Name Freq PRN Reason Stop Dose Admin Acetaminophen 650 mg 12/09/20 17:51 12/16/20 16:30 Acetaminophen 325 Mg Tab PO 650 mg Q4H PRN Administration Pain MILD(1-3)/Fever >100.5/RENE Famotidine 20 mg 12/13/20 22:00 12/17/20 10:02 Famotidine 20 Mg Tab PO 20 mg BID JANICE Administration Gabapentin 800 mg 12/13/20 14:00 12/17/20 10:02 Gabapentin 400 Mg Cap PO 800 mg TID JANICE Administration Haloperidol Lactate 5 mg 12/09/20 17:54 Haloperidol Lactate 5 Mg/1 Ml Inj IV Q1H PRN Unrespon. to mult. doses BZD's Heparin Sodium (Porcine) 5,000 unit 12/09/20 22:00 12/16/20 21:41 Heparin 5,000 Unit/1 Ml Vial SUB-Q 5,000 unit Q12HR JANICE Administration Dextrose/Sodium Chloride 1,000 mls @ 100 mls/hr 12/09/20 18:00 12/17/20 03:21 D5ns IV 100 mls/hr DIRECT JANICE Administration Vancomycin HCl 1,250 mg/ 275 mls @ 166.667 mls/hr 12/14/20 03:00 12/17/20 03:17 Sodium Chloride IV 12/17/20 16:38 166.667 mls/hr Q12H JANICE Administration Labetalol HCl 200 mg 12/15/20 22:00 12/17/20 10:01 Labetalol 200 Mg Tab PO 200 mg BID JANICE Administration Lorazepam 2 mg 12/09/20 12:43 12/17/20 00:18 Lorazepam 2 Mg/Ml Vial IV 2 mg Q1HR PRN Administration CIWA-Ar 8-15 Lorazepam 4 mg 12/09/20 12:43 Lorazepam 2 Mg/Ml Vial IV Q1HR PRN CIWA-Ar 16-25 Lorazepam 4 mg 12/09/20 12:43 Lorazepam 2 Mg/Ml Vial IV Q15MIN PRN CIWA-Ar >25 Metoclopramide HCl 10 mg 12/09/20 17:51 Metoclopramide 10 Mg/2 Ml Inj IV Q6H PRN Nausea And Vomiting Ondansetron HCl 4 mg 12/09/20 17:51 Ondansetron 4 Mg/2 Ml Inj IV Q8H PRN Nausea And Vomiting Potassium Chloride 40 meq 12/14/20 10:00 12/16/20 10:24 Potassium Chloride 20 Meq Packet PO 40 meq QDAY JANICE Administration Sodium Chloride 10 ml 12/09/20 22:00 12/16/20 21:41 Sodium Chloride 0.9% 10 Ml Flush Syringe IV 10 ml BID JANICE Administration Sodium Chloride 10 ml 12/09/20 17:51 Sodium Chloride 0.9% 10 Ml Flush Syringe IV PRN PRN LINE FLUSH Nutrition/Malnutrition Assess - Dietary Evaluation Nutrition/Malnutrition Findings: Nutrition Notes Start: 12/16/20 15:31 Freq: Status: Active Protocol: Document 12/16/20 15:31 GB (Rec: 12/16/20 15:48 GB [id number]) Nutrition Notes Need for Assessment generated from: LOS Initial or Follow up Assessment Other Pertinent Diagnosis BLE skin rash x 3 months, ETOH abuse Current Diet Regular Labs/Tests 12/15: BUN 5, creatinine 0.4, glucose 108 Pertinent Medications D5/NaCl 100ml/hr (408kcal), KCl, vancomycin/NaCl Height 5 ft 5 in Weight 76 kg Arnold Body Weight (kg) 56.81 BMI 27.8 Intake Prior to Admission Good Weight change and time frame 12/09: 77.111kg 12/16: 76kg Change of -1.111kg for -1.4% loss. Weight is stable. Weight Status Overweight Subjective/Other Information notes: BLE skin lesions possibly not contagient, no response to Anitbiotic treatment. PO intake: 75-100% BM: 11/10 Percent of energy/protein needs met: Current PO intake meets 75% or greater of minimal EEN daily Burn Absent Trauma Absent GI Symptoms None Food Allergy No Skin Integrity/Comment Intact. Rash BLE Current % PO Good (75-100%) Minimum of two criteria No #1 Nutrition Diagnosis No nutrition diagnosis at this time Etiology LOS As Evidenced by Signs and Symptoms Days in hospital ( 5 days or greater) Is patient on ventilator? No Is Patient Ambulatory and/or Out of Bed Yes REE-([facility]-ambulatory/OOB) [ 1801.644 [id number]] Calculation Used for Recommendations [facility] Additional Notes Protein: 0.8-1 g/kg @ 76k -76g Fluids: 1m l/kcal or per MD Nutrition Intervention Change Diet Order: continue Nutrition Support: n/a Add Supplement/Snack (indicate name/kcal n/a /protein ) Goal #1 PO intake of meals to continue at 75% or greater daily for LOS Revisit per MD consult or patient Sign Off request:
--- NOTE | 2020-12-17 11:08 | Gastroenterology Consultation ---
History of Present Illness - Reason for Consult Consult date: 12/17/20 cirrhosis Requesting physician: PETEY BLISS - History of Present Illness This is a pleasant 50-year-old female for whom GI is consulted for liver disease Patient's is present at bedside and assist with the history Patient reports drinking alcohol for many years she drinks at least a pint of gin a night. She reports never having follow-up with a internet marketing manager or GI doctor she reports no known history of liver disease She reports she is here just for the skin rash and incidentally noted to have elevated liver enzymes She reports back in [place] she did have testing for hepatitis she does not know the results as far she is aware no history of liver disease no history of viral hepatitis She reports her last drink of alcohol was 10 days ago patient's medication list obtained/updated/reviewed Past History Past Medical History: other (EtOh) Past Surgical History: No surgical history Social history: alcohol abuse Family history: no significant family history Medications and Allergies Allergies Allergy/AdvReac Type Severity Reaction Status Date / Time No Known Allergies Allergy Verified 12/15/20 10:31 Home Medications Medication Instructions Recorded Confirmed Last Taken Type Acetaminophen/Diphenhydramine 2 tab PO HS 12/15/20 12/15/20 12/08/20 History [Tylenol Pm Ex-Strength Caplet] Aspirin/Caffeine [Bc Powder Packet] 1 - 2 each PO QDAY 12/15/20 12/15/2004/25 History [place] Sonido Foot Cream 1 cream TP QDAY 12/15/20 12/15/20 12/08/20 History Two Old Goats Cream 1 cream TP BID 12/15/20 12/15/20 12/08/20 History isopropyl alcohoL [Rubbing Alcohol] 5 ml TP QDAY 12/15/20 12/15/20 12/08/20 History witch Julita [Witch Julita] 5 ml TP QDAY 12/15/20 12/15/20 12/08/20 History Active Meds: Active Medications Acetaminophen (Acetaminophen 325 Mg Tab) 650 mg PO Q4H PRN PRN Reason: Pain MILD(1-3)/Fever >100.5/RENE Last Admin: 12/16/20 16:30 Dose: 650 mg Documented by: Famotidine (Famotidine 20 Mg Tab) 20 mg PO BID [facility] Last Admin: 12/17/20 10:02 Dose: 20 mg Documented by: Gabapentin (Gabapentin 400 Mg Cap) 800 mg PO TID [facility] Last Admin: 12/17/20 10:02 Dose: 800 mg Documented by: Haloperidol Lactate (Haloperidol Lactate 5 Mg/1 Ml Inj) 5 mg IV Q1H PRN PRN Reason: Unrespon. to mult. doses BZD's Heparin Sodium (Porcine) (Heparin 5,000 Unit/1 Ml Vial) 5,000 unit SUB-Q Q12HR [facility] Last Admin: 12/16/20 21:41 Dose: 5,000 unit Documented by: Dextrose/Sodium Chloride (D5ns) 1,000 mls @ 100 mls/hr IV DIRECT [facility] Last Admin: 12/17/20 03:21 Dose: 100 mls/hr Documented by: Vancomycin HCl 1,250 mg/ (Sodium Chloride) 275 mls @ 166.667 mls/hr IV Q12H [facility] Stop: 12/17/20 16:38 Last Admin: 12/17/20 03:17 Dose: 166.667 mls/hr Documented by: Labetalol HCl (Labetalol 200 Mg Tab) 200 mg PO BID [facility] Last Admin: 12/17/20 10:01 Dose: 200 mg Documented by: Lorazepam (Lorazepam 2 Mg/Ml Vial) 2 mg IV Q1HR PRN PRN Reason: CIWA-Ar 8-15 Last Admin: 12/17/20 00:18 Dose: 2 mg Documented by: Lorazepam (Lorazepam 2 Mg/Ml Vial) 4 mg IV Q1HR PRN PRN Reason: CIWA-Ar 16-25 Lorazepam (Lorazepam 2 Mg/Ml Vial) 4 mg IV Q15MIN PRN PRN Reason: CIWA-Ar >25 Metoclopramide HCl (Metoclopramide 10 Mg/2 Ml Inj) 10 mg IV Q6H PRN PRN Reason: Nausea And Vomiting Ondansetron HCl (Ondansetron 4 Mg/2 Ml Inj) 4 mg IV Q8H PRN PRN Reason: Nausea And Vomiting Potassium Chloride (Potassium Chloride 20 Meq Packet) 40 meq PO QDAY [facility] Last Admin: 12/16/20 10:24 Dose: 40 meq Documented by: Sodium Chloride (Sodium Chloride 0.9% 10 Ml Flush Syringe) 10 ml IV BID [facility] Last Admin: 12/16/20 21:41 Dose: 10 ml Documented by: Sodium Chloride (Sodium Chloride 0.9% 10 Ml Flush Syringe) 10 ml IV PRN PRN PRN Reason: LINE FLUSH Review of Systems - Review of Systems All systems: negative (10 systems reviewed and negative except as otherwise mentioned in the history of present illness with addition of pruritus and skin rash) Exam - Constitutional Vital Signs: Temp Pulse Resp BP Pulse Ox 98.2 F 85 18 123/89 99 12/17/20 07:44 12/17/20 07:44 12/17/20 07:44 12/17/20 07:44 12/17/20 07:44 General appearance: no acute distress - EENT Eyes: EOM intact ENT: hearing intact - Neck Neck: supple - Respiratory Respiratory effort: normal - Cardiovascular Rhythm: regular - Gastrointestinal General gastrointestinal: Present: soft, non-tender - Integumentary Integumentary: Present: dry, rash - Musculoskeletal Musculoskeletal: normal - Neurologic Neurological: alert and oriented x3 - Psychiatric Psychiatric: appropriate mood/affect - Labs CBC & Chem 7: 12/15/20 06:05 12/15/20 06:05 Assessment and Plan Rash is unlikely to be related to the patient's liver disease. I discussed with her alcohol cessation education she will work on this To be thorough I ordered hepatitis panel to ensure she does not have underlying hepatitis C however cryoglobulinemia is unlikely to be the source of this rash Remainder of liver management as an outpatient, GI will sign off, please have her follow-up with me in the office 2-4 weeks post discharge - Patient Problems (1) EtOH dependence Current Visit: Yes Status: Acute (2) Skin rash Current Visit: Yes Status: Acute (3) Transaminitis Current Visit: Yes Status: Acute
--- NOTE | 2020-12-17 13:20 | Progress Note ---
Assessment and Plan Cultures: None A/P: 50 yo F PMHx PMHx EtOH [facility]. #Bilateral LE skin lesions: has been treated as outpatient and now inpatient for folliculitis with no response to antibiotics. Am concerned this is a non- infectious cause. Will continue antibiotics for now given leukocytosis, but given lack of response so far I doubt acute infectious process. #EtOH abuse: psych onboard Recs: -Continue vancomycin given lack of response to bactrim, though likely short course as probably non-infectious cause. Complete 5 days -I do not believe this is an infectious issue. Leukocytosis likely reactive to skin changes/internal issues -She should see a splitter operator as an outpatient, though it may be difficult without insurance. Thank you for the consult, we will sign off. please call with questions. Gustavo Arceo MD [facility] ([facility]) O: [phone] F: [phone] Subjective Date of service: 12/17/20 Principal diagnosis: Severe hypokalemia, delirium tremens, peripheral neuropathy Interval history: Afebrile, persistent white count. Objective - Exam Narrative Exam: Physical Exam: Constitutional: Alert, cooperative. No acute distress Head, Ears, Nose: Normocephalic, atraumatic. External ears, nose normal Eyes: Conjunctivae/corneas clear. No icterus. No ptosis. Neck: Supple, no meningeal signs Oral: dentition fair, no thrush Cardiovascular: S1, S2 normal. Respiratory: Good air entry, clear to auscultation bilaterally GI: Soft, non-tender; bowel sounds normal. No peritoneal signs. Musculoskeletal: No pedal edema, no cyanosis. Skin: Non-tender papules on bilateral legs and extensor forearm/elbows. Hem/Lymphatic: No palpable cervical or supraclavicular nodes. No lymphangitis Psych: Mood ok. Affect normal Neurological: Awake, alert, oriented. No gross abnormality - Constitutional Vitals: Vital Signs Temp Pulse Resp BP Pulse Ox 98.3 F 89 18 122/89 100 12/17/20 10:59 12/17/20 10:59 12/17/20 10:59 12/17/20 10:59 12/17/20 10:59 Temperature -Last 24 Hours Temperature 98.3 F Temperature 98.2 F Temperature 98.2 F Temperature 98.2 F Temperature 99.0 F Temperature 99.9 F - Labs CBC & Chem 7: 12/15/20 06:05 12/15/20 06:05
[2020-12-17 15:41] LABS: Hepatitis C Virus Antibody Non-Reactive (NonReactive)
[2020-12-17 15:42] LABS: Hepatitis B Surface Antigen Non-Reactive (Negative)
[2020-12-17] MEDS: ACETAMINOPHEN 325 MG TAB PO PRN (21:18)
[2020-12-18 05:46] LABS: Basophils # (Auto) 0.1 K/mm3 (0.0-0.1); Basophils % (Auto) 1.1 % (0.0-1.8); Eosinophils # (Auto) 0.2 K/mm3 (0.0-0.4); Eosinophils % (Auto) 1.3 % (0.0-4.3); Lymphocytes # (Auto) 1.9 K/mm3 (1.2-5.4); Lymphocytes % (Auto) 14.8 % (13.4-35.0); Mean Corpuscular HGB Conc 30 % (30-34); Mean Corpuscular Volume 98 fl (79-97); Monocytes # (Auto) 1.4 K/mm3 (0.0-0.8); Monocytes % (Auto) 10.6 % (0.0-7.3); Platelet Count 670 K/mm3 (140-440); Red Blood Count 3.32 M/mm3 (3.65-5.03); Red Cell Distribution Width 16.4 % (13.2-15.2)
[2020-12-18 05:50] LABS: Hematocrit 32.6 % (30.3-42.9); Hemoglobin 9.8 gm/dl (10.1-14.3)
[2020-12-18 06:01] LABS: Blood Urea Nitrogen 4 mg/dL (7-17); Calcium 8.6 mg/dL (8.4-10.2); Hemolysis Index 13
[2020-12-18 06:02] LABS: BUN/Creatinine Ratio 13
--- NOTE | 2020-12-18 08:40 | Discharge Summary ---
Providers - Providers Date of Admission: 12/09/20 17:51 Date of discharge: 12/18/20 Attending physician: PETEY BLISS 12/09/20 17:51 Consult to Physician [CONS] Routine Comment: Consulting Provider: MICHELL AUSTIN Physician Instructions: Reason For Exam: DT 12/12/20 19:25 Consult to Physician [CONS] Routine Comment: Consulting Provider: CONNOR ZHAO Physician Instructions: Reason For Exam: Leukocytosis with skin rash 12/14/20 08:33 Consult to Physician [CONS] Routine Comment: Consulting Provider: GEOVANY CHAVEZ Physician Instructions: Reason For Exam: Christoph LE rash 12/17/20 10:06 Consult to Physician [CONS] Routine Comment: Consulting Provider: ORIANA ALVAREZ Physician Instructions: Reason For Exam: cirrhosis 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 She had been treated by her primary outpatient doctor for folliculitis over this timeframe with Bactrim, however there has been no change in the lesions. She complains of associated pruritus. She is reported to have abnormal blood counts on her labwork as an outpatient as well. The lesions are stable, not transitory. There has been no purulent discharge. Patient was noted to have leukocytosis of 15,000 and initially treated with p.o. Bactrim. The patient was admitted with diagnosis of bilateral lower extremity skin lesions, accelerated hypertension, EtOH abuse/withdrawal, acute kidney injury secondary to vasomotor nephropathy, hypokalemia, transaminitis likely secondary to alcoholic hepatitis and folliculitis with leukocytosis. ID saw the patient in consultation and switch Bactrim to vancomycin empirically. ID was concerned that this was a noninfectious cause but continued on antibiotics given the leukocytosis. Hematology oncology was consulted. Hospital course: 12/14/2020. ID switch Bactrim to vancomycin given lack of response. Heme-onc consultation 12/15/2020. Hematology following. Follow-up laboratory total porphyrins and plasma resumed. Follow-up reticulocyte count, LDH, iron panel and CBC. ID recommends continuing vancomycin for now.? Skin biopsy. Start labetalol for elevated BP. 12/16/2020. Follow-up laboratory total porphyrins and plasma. Follow-up reticulocyte count, LDH, iron panel and CBC. ID recommends continuing vancomycin until 12/19. No need for skin biopsy per hematology. 12/17/2020. Consult GI for cirrhosis. Continue IV antibiotics until Sunday per ID recommendations. No need for skin biopsy per hematology. Leukocytosis persists 12/18/2020. ID reported that completion of antibiotics will be today and not Sunday. ID does not believe that this is an infectious cause. Leukocytosis likely reactive to skin changes/internal issues. She should see a canoe builder as an outpatient, though it may be difficult without insurance. GI also saw the patient in consultation and reports rash is unlikely to be related to the patient's liver disease. GI discussed with her alcohol cessation education she will work on this. Hepatitis panel was ordered and found to be negative. Hematology reported leukocytosis probably related to cutaneous process and doubt heme malignancy. Patient should have follow-up with hematology regarding total porphyrins and plasma or serum or total urine porphyrin on a spot urine. Dedicated discharge time 35 minutes Disposition: HOME / SELF CARE / HOMELESS Final Discharge Diagnosis (Prints w/discharge instructions): bilateral lower ex tremity skin lesions, accelerated hypertension, EtOH abuse/withdrawal, acute kidney injury secondary to vasomotor nephropathy, hypokalemia, transaminitis likely secondary to alcoholic hepatitis and folliculitis with leukocytosis. Core Measure Documentation - Palliative Care Palliative Care/ Comfort Measures: Not Applicable - Core Measures Any of the following diagnoses?: none Exam - Constitutional Vitals: Temp Pulse Resp BP Pulse Ox 98.0 F 85 16 134/80 98 12/18/20 03:24 12/18/20 06:00 12/18/20 03:24 12/18/20 03:24 12/17/20 23:08 General appearance: Present: no acute distress, well-nourished - EENT Eyes: Present: PERRL ENT: hearing intact, clear oral mucosa - Neck Neck: Present: supple, normal ROM - Respiratory Respiratory effort: normal Respiratory: bilateral: CTA - Cardiovascular Heart Sounds: Present: S1 & S2. Absent: rub, click - Extremities Extremities: pulses symmetrical, No edema Peripheral Pulses: within normal limits - Abdominal General gastrointestinal: Present: soft, non-tender, non-distended, normal bowel sounds Female genitourinary: Present: normal - Integumentary Integumentary: Present: clear, warm, dry - Musculoskeletal Musculoskeletal: gait normal, strength equal bilaterally - Psychiatric Psychiatric: appropriate mood/affect, intact judgment & insight - Neurologic Neurologic: CNII-XII intact, moves all extremities Plan Activity: advance as tolerated Weight Bearing Status: Weight Bear as Tolerated Diet: regular Additional Instructions: F/U with Dermatology Follow up with: PRIMARY CARE, [Primary Care Provider] - 3-5 Days DENZEL SMITH MD [Staff Physician] - 7 Days GEOVANY CHAVEZ MD [Staff Physician] - 7 Days RAJAN SANABRIA MD [Staff Physician] - 7 Days Prescriptions: Gabapentin 800 mg PO TID #90 capsule labetaloL [Labetalol 200mg TAB] 200 mg PO BID #60 tablet
[2020-12-18 08:50] VITALS: BP 98/62
[2020-12-18] MEDS: FAMOTIDINE 20 MG TAB PO SCH (10:07)
[2020-12-18] MEDS: GABAPENTIN 400 MG CAP PO SCH (10:07)
[2020-12-18] MEDS: HEPARIN 5,000 UNIT/1 ML VIAL SUB-Q SCH (10:08)
[2020-12-18] MEDS: POTASSIUM CHLORIDE 20 MEQ PACKET PO SCH (10:08)
== END 2020-12-18 12:44 | disposition home or self-care (01) | DRG 432 ==
LOC: ED 10:59 → 3A 12:47 → OBSVTOIN 17:51 → 4A 17:57
PROVIDERS: ADMIT Internal Medicine; ATTEND Hospitalist
DX: K70.10 Alcoholic hepatitis without ascites (principal); N17.0 Acute kidney failure with tubular necrosis; F10.231 Alcohol dependence with withdrawal delirium; L98.8 Other specified disorders of the skin and subcutaneous tissue; L73.9 Follicular disorder, unspecified; E11.9 Type 2 diabetes mellitus without complications; E87.6 Hypokalemia; E86.0 Dehydration; I10 Essential (primary) hypertension; D72.829 Elevated white blood cell count, unspecified; Z20.822 Contact with and (suspected) exposure to COVID-19
CPT/HCPCS: 36415; 70450; 71045; 76700; 80048; 80053; 80074; 80320; 81001; 82040; 82140; 82150; 82550; 82962; 83550; 83615; 83735; 84100; 84132; 84443; 84702; 85007; 85025; 85045; 85610; 85730; 93005; 99406; G0378; J3490; G0480; J1170; J1644; J2060; J3370; J3411; J3480; J7030; J7040; J7042; J7050; J7120

== ENCOUNTER 2021-11-02 18:39 | Inpatient (IN) | payer SELFPAY ==
[2021-11-02 20:14] LABS: Hemoglobin 12.1 gm/dl (10.1-14.3); Mean Corpuscular HGB Conc 33 % (30-34); Mean Corpuscular Volume 92 fl (79-97); Platelet Count 180 K/mm3 (140-440); Red Blood Count 4.02 M/mm3 (3.65-5.03)
[2021-11-02 20:17] LABS: Red Cell Distribution Width 28.9 % (13.2-15.2)
[2021-11-02 20:20] LABS: Blood Urea Nitrogen 4 mg/dL (7-17); Calcium 8.5 mg/dL (8.4-10.2); Hemolysis Index 6
[2021-11-02] MEDS ORDERED: SODIUM CHLORIDE 0.9% 1000 ML 1,000 ML IV ONE (20:30)
[2021-11-02 20:45] LABS: BUN/Creatinine Ratio 20
[2021-11-02] MEDS ORDERED: MAGNESIUM SULFATE 2 GM/50 ML BAG IV ONE (20:49)
[2021-11-02 20:57] LABS: Anisocytosis 3+; Basophils % (Manual) 0 % (0.0-1.8); Eosinophils % (Manual) 0 % (0.0-4.3); Total Cells Counted 100
[2021-11-02 20:58] LABS: Platelet Estimate Consistent w Auto; Stomatocytes 2+; Target Cells 2+
[2021-11-02 20:59] LABS: Dimorphic RBC Yes
[2021-11-02] MEDS ORDERED: VANCOMYCIN 1,500 MG in SODIUM CHLORIDE 0.9% 500 ML 500 ML IV ONE (21:04)
[2021-11-02] MEDS ORDERED: SODIUM CHLORIDE 0.9% 1000 ML IV SOLN IV ONE (21:04)
--- NOTE | 2021-11-02 21:05 | Cat Scan Report ---
CT head without contrast INDICATION : AMS. TECHNIQUE: Axial imaging performed from the skull apex through the skull base without the use of con trast. All CT scans at this location are performed using CT dose reduction for ALARA by means of aut omated exposure control. COMPARISON: CT head from 12/09/2020 FINDINGS: Parenchyma: No acute intracranial hemorrhage or parenchymal abnormality. Ventricles: Ventricles are normal in size and appear symmetric. Soft tissues: Soft tissues including the orbits appear normal. Bones: No acute osseous abnormality. Sinuses: Sinuses and mastoid air cells are clear. IMPRESSION: No acute abnormality. Signer Name: Micha Willson MD Signed: 11/02/2021 9:00 PM Workstation Name: [id number]
[2021-11-02] MEDS: POTASSIUM CHLORIDE 10 MEQ 10 MEQ/100 ML BAG IV SCH ×2 (21:12→23:55)
[2021-11-02 21:29] LABS: ABG Base Excess 20.7 mmol/L (-2.0-3.0); ABG HCO3 45.9 mmol/L (20.0-26.0); ABG Methemoglobin 0.7 % (0.0-1.5); ABG Oxygen Saturation 97.3 % (95.0-99.0); ABG PCO2 54.3 mm Hg; ABG PH 7.545 pH Units (7.350-7.450); ABG PO2 88.2 mm Hg (80.0-90.0)
[2021-11-02 21:49] LABS: Bilirubin,Direct 8.8 mg/dL (0-0.2)
--- NOTE | 2021-11-02 21:57 | XRay Report ---
CHEST 1 VIEW 11/02/2021 9:14 PM INDICATION / CLINICAL INFORMATION: ams. COMPARISON: None available. FINDINGS: SUPPORT DEVICES: None. HEART / MEDIASTINUM: No significant abnormality. Mild elevation of the right hemidiaphragm. LUNGS / PLEURA: No significant pulmonary or pleural abnormality. No pneumothorax. ADDITIONAL FINDINGS: No significant additional findings. IMPRESSION: 1. No acute findings. Signer Name: Celestine Giang MD Signed: 11/02/2021 9:52 PM Workstation Name: [email or web address]
[2021-11-02] MEDS ORDERED: VANCOMYCIN PHARMACY TO DOSE IV SCH (22:00)
--- NOTE | 2021-11-02 22:37 | Cat Scan Report ---
CT ABDOMEN AND PELVIS WITH CONTRAST INDICATION / CLINICAL INFORMATION: gluteal wound, ams, hepatic encephalopathy. TECHNIQUE: Axial CT images were obtained through the abdomen and pelvis after IV contrast. All CT sc ans at this location are performed using CT dose reduction for ALARA by means of automated exposure c ontrol. COMPARISON: Abdominal ultrasound 12/13/2020 FINDINGS: LOWER CHEST: No significant abnormality. LIVER: Marked heterogeneous hypoattenuation of the liver, possibly representing severe steatosis with areas of focal fatty sparing. Superimposed hepatic masses cannot be excluded. Further characterizati on with multiphase liver mass CT or MRI is recommended. There is a small volume of ascitic fluid rachael g the superior aspect of the liver. GALLBLADDER: Cholelithiasis within a distended gallbladder. There is pericholecystic fluid. BILE DUCTS: No significant abnormality. PANCREAS: The pancreas is atrophic with scattered calcifications. There is mild pancreatic ductal dil ation measuring up to 6 mm. SPLEEN: No significant abnormality. ADRENALS: No significant abnormality. RIGHT KIDNEY / URETER: No significant abnormality. LEFT KIDNEY / URETER: No significant abnormality. STOMACH / SMALL BOWEL: No significant abnormality. COLON: No significant abnormality. APPENDIX: No significant abnormality. PERITONEUM: No free fluid. No free air. No fluid collection. LYMPH NODES: No significant adenopathy. AORTA / ARTERIES: Mild atherosclerotic calcification without acute abnormality. IVC / VEINS: No significant abnormality. URINARY BLADDER: No significant abnormality. REPRODUCTIVE ORGANS: Enlarged and multi fibroid uterus. ADDITIONAL FINDINGS: None. SKELETAL SYSTEM: No significant abnormality. IMPRESSION: 1. Marked heterogeneous hypoattenuation throughout the liver which may represent severe hepatic steat osis with areas of focal fatty sparing. Severe hepatitis could have a similar appearance. Underlying hepatic masses cannot be excluded. Further evaluation with multiphase liver mass CT or MRI is recomme nded. 2. There is a small volume of ascitic fluid along the superior aspect of the liver. 3. Cholelithiasis within a distended gallbladder with surrounding pericholecystic fluid. Findings can be seen in the setting of cholecystitis. Further evaluation with ultrasound is warranted. Gallbladde r wall thickening may also be related to hepatic dysfunction. Signer Name: Celestine Giang MD Signed: 11/02/2021 10:33 PM Workstation Name: [id number]
[2021-11-02] MEDS ORDERED: LACTULOSE ENEMA 1000 ML PR ONE (23:05)
--- NOTE | 2021-11-02 23:05 | Emergency Department Report ---
ED Altered Mental Status HPI - General Chief Complaint: Altered Mental Status Stated Complaint: FATIGUE/DEHYRATION Time Seen by Provider: 11/02/21 19:54 Source: family Mode of arrival: Wheelchair Limitations: Altered Mental Status - History of Present Illness Initial Comments: 51-year-old female with a past medical history of alcohol abuse presents to the hospital activation mental status x1 day. Fiverónica at the bedside is providing history of present and is due to alteration in mental status. He reports that patient has had nausea and vomiting with p.o. intolerance for last 3 to 4 days and has not had any alcohol since symptoms began. No reports of pain or fever. - Related Data Home Medications Medication Instructions Recorded Confirmed Last Taken Acetaminophen/Diphenhydramine 2 tab PO HS 12/15/20 12/15/20 12/08/20 [Tylenol Pm Ex-Strength Caplet] Aspirin/Caffeine [Bc Pain Relief 1 - 2 each PO QDAY 12/15/20 12/15/20 12/08/20 Powder Packet] Capone Alevism Foot Cream 1 cream TP QDAY 12/15/20 12/15/20 12/08/20 Two Old Goats Cream 1 cream TP BID 12/15/20 12/15/20 12/08/20 isopropyl alcohoL [Rubbing Alcohol] 5 ml TP QDAY 12/15/20 12/15/20 12/08/20 witch Julita [Witch Julita] 5 ml TP QDAY 12/15/20 12/15/20 12/08/20 Previous Rx's Medication Instructions Recorded Last Taken Type Gabapentin 800 mg PO TID #90 capsule 12/18/20 Unknown Rx labetaloL [Labetalol 200mg TAB] 200 mg PO BID #60 tablet 12/18/20 Unknown Rx oxyCODONE /ACETAMINOPHEN [Percocet 1 tab PO Q4HR #10 tab 12/18/20 Unknown Rx 5/325] Allergies Allergy/AdvReac Type Severity Reaction Status Date / Time No Known Allergies Allergy Verified 12/15/20 10:31 ED Review of Systems ROS: Stated complaint: FATIGUE/DEHYRATION Other details as noted in HPI Comment: Unobtainable due to pts medical conditions ED Past Medical Hx - Past Medical History Previous Medical History?: Yes Additional medical history: anemia, neuropathy, low potassium - Surgical History Past Surgical History?: No - Social History Smoking Status: Current Every Day Smoker - Medications Home Medications: Home Medications Medication Instructions Recorded Confirmed Last Taken Type Acetaminophen/Diphenhydramine 2 tab PO HS 12/15/20 12/15/20 12/08/20 History [Tylenol Pm Ex-Strength Caplet] Aspirin/Caffeine [Bc Pain Relief 1 - 2 each PO QDAY 12/15/20 12/15/20 12/08/20 History Powder Packet] Capone Alevism Foot Cream 1 cream TP QDAY 12/15/20 12/15/20 12/08/20 History Two Old Goats Cream 1 cream TP BID 12/15/20 12/15/20 12/08/20 History isopropyl alcohoL [Rubbing Alcohol] 5 ml TP QDAY 12/15/20 12/15/20 12/08/20 History witch Julita [Witch Julita] 5 ml TP QDAY 12/15/20 12/15/20 12/08/20 History Gabapentin 800 mg PO TID #90 capsule 12/18/20 Unknown Rx labetaloL [Labetalol 200mg TAB] 200 mg PO BID #60 tablet 12/18/20 Unknown Rx oxyCODONE /ACETAMINOPHEN [Percocet 1 tab PO Q4HR #10 tab 12/18/20 Unknown Rx 5/325] ED Physical Exam - General Limitations: Altered Mental Status - Other Other exam information: General: No acute distress Head: Atraumatic Eyes: normal appearance ENT: Moist mucous membranes Neck: Normal appearance, no midline tenderness Chest: Clear to auscultation bilaterally CV: Regular rate and rhythm Abdomen: Soft, normal bowel sounds, nontender, nondistended, no rebound or guarding Back: Normal inspection Extremity: Normal inspection, full range of motion Neuro: Drowsy, arousable to voice. Would not answer questions and then goes back to sleep. Equal handgrip Psych: Appropriate behavior Skin: Small open wound at the lower gluteal fold area at area of recent popped localized swelling area. No active drainage. Right gluteal healing wound/laceration just lateral to the anal area with mild erythema without active drainage or foul ED Course Vital Signs 11/02/21 18:50 Temperature 98.6 F Pulse Rate 100 H Respiratory 14 Rate Blood Pressure 125/82 [Left] O2 Sat by Pulse 98 Oximetry - Reevaluation(s) Reevaluation #1: 11/02/21 23:26 pt noted to have a room air sat of 83% - Lab Data Result diagrams: 11/02/21 19:02 11/02/21 19:02 Lab Results 11/02/21 11/02/21 11/02/21 Range/Units 18:48 19:02 19:02 WBC 15.6 H (4.5-11.0) K/mm3 RBC 4.02 (3.65-5.03) M/mm3 Hgb 12.1 (10.1-14.3) gm/dl Hct 37.0 (30.3-42.9) % MCV 92 (79-97) fl MCH 30 (28-32) pg MCHC 33 (30-34) % RDW 28.9 H (13.2-15.2) % Plt Count 180 (140-440) K/mm3 Add Manual Diff Complete Total Counted 100 Seg Neuts % (Manual) 87.0 H (40.0-70.0) % Band Neutrophils % 0 % Lymphocytes % (Manual) 5.0 L (13.4-35.0) % Reactive Lymphs % (Man) 0 % Monocytes % (Manual) 8.0 H (0.0-7.3) % Eosinophils % (Manual) 0 (0.0-4.3) % Basophils % (Manual) 0 (0.0-1.8) % Metamyelocytes % 0 % Myelocytes % 0 % Promyelocytes % 0 % Blast Cells % 0 % Nucleated RBC % Not Reportable Seg Neutrophils # Man 13.6 H (1.8-7.7) K/mm3 Band Neutrophils # 0.0 K/mm3 Lymphocytes # (Manual) 0.8 L (1.2-5.4) K/mm3 Abs React Lymphs (Man) 0.0 K/mm3 Monocytes # (Manual) 1.2 H (0.0-0.8) K/mm3 Eosinophils # (Manual) 0.0 (0.0-0.4) K/mm3 Basophils # (Manual) 0.0 (0.0-0.1) K/mm3 Metamyelocytes # 0.0 K/mm3 Myelocytes # 0.0 K/mm3 Promyelocytes # 0.0 K/mm3 Blast Cells # 0.0 K/mm3 WBC Morphology Not Reportable Hypersegmented Neuts Not Reportable Hyposegmented Neuts Not Reportable Hypogranular Neuts Not Reportable Smudge Cells Not Reportable Toxic Granulation Not Reportable Toxic Vacuolation Not Reportable Dohle Bodies Not Reportable Pelger-Huet Anomaly Not Reportable Sarah Rods Not Reportable Platelet Estimate Consistent w auto Clumped Platelets Not Reportable Plt Clumps, EDTA Not Reportable Large Platelets Not Reportable Giant Platelets Not Reportable Platelet Satelliting Not Reportable Plt Morphology Comment Not Reportable RBC Morphology Not Reportable Dimorphic RBCs Yes Polychromasia Not Reportable Hypochromasia Not Reportable Poikilocytosis Not Reportable Anisocytosis 3+ Microcytosis Not Reportable Macrocytosis Not Reportable Spherocytes Not Reportable Pappenheimer Bodies Not Reportable Sickle Cells Not Reportable Target Cells 2+ Tear Drop Cells Not Reportable Ovalocytes Not Reportable Stomatocytes 2+ Helmet Cells Not Reportable Zarate-[place] Bodies Not Reportable [place] Rings Not Reportable Dysart Cells Not Reportable Bite Cells Not Reportable Crenated Cell Not Reportable Elliptocytes Not Reportable Acanthocytes (Spur) Not Reportable Rouleaux Not Reportable Hemoglobin C Crystals Not Reportable Schistocytes Not Reportable Malaria parasites Not Reportable [place] Bodies Not Reportable Hem Pathologist Commnt No ABG pH (7.350-7.450) pH Units ABG pCO2 mm Hg ABG pO2 (80.0-90.0) mm Hg ABG HCO3 (20.0-26.0) mmol/L ABG O2 Saturation (95.0-99.0) % ABG O2 Content (0.0-44) ABG Base Excess (-2.0-3.0) mmol/L ABG Hemoglobin (12.0-16.0) gm/dl ABG Carboxyhemoglobin (0.0-5.0) % ABG Methemoglobin (0.0-1.5) % Oxyhemoglobin (95.0-99.0) % FiO2 % Sodium 125 L (137-145) mmol/L Potassium 1.7 L* (3.6-5.0) mmol/L Chloride 62.3 L (98-107) mmol/L Carbon Dioxide 42 H* (22-30) mmol/L Anion Gap 22 mmol/L BUN 4 L (7-17) mg/dL Creatinine 0.2 L (0.6-1.2) mg/dL Estimated GFR > 60 ml/min BUN/Creatinine Ratio 20 % Glucose 100 (65-100) mg/dL POC Glucose 136 H (70-105) mg/dL Lactic Acid (0.7-2.0) mmol/L Calcium 8.5 (8.4-10.2) mg/dL Magnesium (1.7-2.3) mg/dL Total Bilirubin (0.1-1.2) mg/dL Direct Bilirubin (0-0.2) mg/dL Indirect Bilirubin mg/dL AST (5-40) units/L ALT (7-56) units/L Alkaline Phosphatase (35-129) units/L Ammonia (25-60) umol/L Total Creatine Kinase (30-135) units/L Troponin T (0.00-0.029) ng/mL Total Protein (6.3-8.2) g/dL Albumin (3.9-5) g/dL Albumin/Globulin Ratio % Lipase (13-60) units/L TSH (0.270-4.200) mlU/mL Plasma/Serum Alcohol (0-0.07) % 11/02/21 11/02/21 11/02/21 Range/Units 20:02 20:05 20:05 WBC (4.5-11.0) K/mm3 RBC (3.65-5.03) M/mm3 Hgb (10.1-14.3) gm/dl Hct (30.3-42.9) % MCV (79-97) fl MCH (28-32) pg MCHC (30-34) % RDW (13.2-15.2) % Plt Count (140-440) K/mm3 Add Manual Diff Total Counted Seg Neuts % (Manual) (40.0-70.0) % Band Neutrophils % % Lymphocytes % (Manual) (13.4-35.0) % Reactive Lymphs % (Man) % Monocytes % (Manual) (0.0-7.3) % Eosinophils % (Manual) (0.0-4.3) % Basophils % (Manual) (0.0-1.8) % Metamyelocytes % % Myelocytes % % Promyelocytes % % Blast Cells % % Nucleated RBC % Seg Neutrophils # Man (1.8-7.7) K/mm3 Band Neutrophils # K/mm3 Lymphocytes # (Manual) (1.2-5.4) K/mm3 Abs React Lymphs (Man) K/mm3 Monocytes # (Manual) (0.0-0.8) K/mm3 Eosinophils # (Manual) (0.0-0.4) K/mm3 Basophils # (Manual) (0.0-0.1) K/mm3 Metamyelocytes # K/mm3 Myelocytes # K/mm3 Promyelocytes # K/mm3 Blast Cells # K/mm3 WBC Morphology Hypersegmented Neuts Hyposegmented Neuts Hypogranular Neuts Smudge Cells Toxic Granulation Toxic Vacuolation Dohle Bodies Pelger-Huet Anomaly Sarah Rods Platelet Estimate Clumped Platelets Plt Clumps, EDTA Large Platelets Giant Platelets Platelet Satelliting Plt Morphology Comment RBC Morphology Dimorphic RBCs Polychromasia Hypochromasia Poikilocytosis Anisocytosis Microcytosis Macrocytosis Spherocytes Pappenheimer Bodies Sickle Cells Target Cells Tear Drop Cells Ovalocytes Stomatocytes Helmet Cells Zarate-Chewelah Bodies [place] Rings Sharifa Cells Bite Cells Crenated Cell Elliptocytes Acanthocytes (Spur) Rouleaux Hemoglobin C Crystals Schistocytes Malaria parasites Amador Bodies Hem Pathologist Commnt ABG pH (7.350-7.450) pH Units ABG pCO2 mm Hg ABG pO2 (80.0-90.0) mm Hg ABG HCO3 (20.0-26.0) mmol/L ABG O2 Saturation (95.0-99.0) % ABG O2 Content (0.0-44) ABG Base Excess (-2.0-3.0) mmol/L ABG Hemoglobin (12.0-16.0) gm/dl ABG Carboxyhemoglobin (0.0-5.0) % ABG Methemoglobin (0.0-1.5) % Oxyhemoglobin (95.0-99.0) % FiO2 % Sodium (137-145) mmol/L Potassium (3.6-5.0) mmol/L Chloride (98-107) mmol/L Carbon Dioxide (22-30) mmol/L Anion Gap mmol/L BUN (7-17) mg/dL Creatinine (0.6-1.2) mg/dL Estimated GFR ml/min BUN/Creatinine Ratio % Glucose (65-100) mg/dL POC Glucose 133 H (70-105) mg/dL Lactic Acid 7.60 H* (0.7-2.0) mmol/L Calcium (8.4-10.2) mg/dL Magnesium (1.7-2.3) mg/dL Total Bilirubin (0.1-1.2) mg/dL Direct Bilirubin (0-0.2) mg/dL Indirect Bilirubin mg/dL AST (5-40) units/L ALT (7-56) units/L Alkaline Phosphatase (35-129) units/L Ammonia 145.0 H (25-60) umol/L Total Creatine Kinase (30-135) units/L Troponin T (0.00-0.029) ng/mL Total Protein (6.3-8.2) g/dL Albumin (3.9-5) g/dL Albumin/Globulin Ratio % Lipase (13-60) units/L TSH (0.270-4.200) mlU/mL Plasma/Serum Alcohol (0-0.07) % 11/02/21 11/02/21 11/02/21 Range/Units 20:05 20:05 20:05 WBC (4.5-11.0) K/mm3 RBC (3.65-5.03) M/mm3 Hgb (10.1-14.3) gm/dl Hct (30.3-42.9) % MCV (79-97) fl MCH (28-32) pg MCHC (30-34) % RDW (13.2-15.2) % Plt Count (140-440) K/mm3 Add Manual Diff Total Counted Seg Neuts % (Manual) (40.0-70.0) % Band Neutrophils % % Lymphocytes % (Manual) (13.4-35.0) % Reactive Lymphs % (Man) % Monocytes % (Manual) (0.0-7.3) % Eosinophils % (Manual) (0.0-4.3) % Basophils % (Manual) (0.0-1.8) % Metamyelocytes % % Myelocytes % % Promyelocytes % % Blast Cells % % Nucleated RBC % Seg Neutrophils # Man (1.8-7.7) K/mm3 Band Neutrophils # K/mm3 Lymphocytes # (Manual) (1.2-5.4) K/mm3 Abs React Lymphs (Man) K/mm3 Monocytes # (Manual) (0.0-0.8) K/mm3 Eosinophils # (Manual) (0.0-0.4) K/mm3 Basophils # (Manual) (0.0-0.1) K/mm3 Metamyelocytes # K/mm3 Myelocytes # K/mm3 Promyelocytes # K/mm3 Blast Cells # K/mm3 WBC Morphology Hypersegmented Neuts Hyposegmented Neuts Hypogranular Neuts Smudge Cells Toxic Granulation Toxic Vacuolation Dohle Bodies Pelger-Huet Anomaly Sarah Rods Platelet Estimate Clumped Platelets Plt Clumps, EDTA Large Platelets Giant Platelets Platelet Satelliting Plt Morphology Comment RBC Morphology Dimorphic RBCs Polychromasia Hypochromasia Poikilocytosis Anisocytosis Microcytosis Macrocytosis Spherocytes Pappenheimer Bodies Sickle Cells Target Cells Tear Drop Cells Ovalocytes Stomatocytes Helmet Cells Zarate-[place] Bodies [place] Rings Dysart Cells Bite Cells Crenated Cell Elliptocytes Acanthocytes (Spur) Rouleaux Hemoglobin C Crystals Schistocytes Malaria parasites Amador Bodies Hem Pathologist Commnt ABG pH (7.350-7.450) pH Units ABG pCO2 mm Hg ABG pO2 (80.0-90.0) mm Hg ABG HCO3 (20.0-26.0) mmol/L ABG O2 Saturation (95.0-99.0) % ABG O2 Content (0.0-44) ABG Base Excess (-2.0-3.0) mmol/L ABG Hemoglobin (12.0-16.0) gm/dl ABG Carboxyhemoglobin (0.0-5.0) % ABG Methemoglobin (0.0-1.5) % Oxyhemoglobin (95.0-99.0) % FiO2 % Sodium (137-145) mmol/L Potassium (3.6-5.0) mmol/L Chloride (98-107) mmol/L Carbon Dioxide (22-30) mmol/L Anion Gap mmol/L BUN (7-17) mg/dL Creatinine (0.6-1.2) mg/dL Estimated GFR ml/min BUN/Creatinine Ratio % Glucose (65-100) mg/dL POC Glucose (70-105) mg/dL Lactic Acid (0.7-2.0) mmol/L Calcium (8.4-10.2) mg/dL Magnesium (1.7-2.3) mg/dL Total Bilirubin (0.1-1.2) mg/dL Direct Bilirubin (0-0.2) mg/dL Indirect Bilirubin mg/dL AST (5-40) units/L ALT (7-56) units/L Alkaline Phosphatase (35-129) units/L Ammonia (25-60) umol/L Total Creatine Kinase 134 (30-135) units/L Troponin T < 0.010 (0.00-0.029) ng/mL Total Protein (6.3-8.2) g/dL Albumin (3.9-5) g/dL Albumin/Globulin Ratio % Lipase (13-60) units/L TSH 0.744 (0.270-4.200) mlU/mL Plasma/Serum Alcohol < 0.01 (0-0.07) % 11/02/21 11/02/21 11/02/21 Range/Units 20:05 20:05 20:05 WBC (4.5-11.0) K/mm3 RBC (3.65-5.03) M/mm3 Hgb (10.1-14.3) gm/dl Hct (30.3-42.9) % MCV (79-97) fl MCH (28-32) pg MCHC (30-34) % RDW (13.2-15.2) % Plt Count (140-440) K/mm3 Add Manual Diff Total Counted Seg Neuts % (Manual) (40.0-70.0) % Band Neutrophils % % Lymphocytes % (Manual) (13.4-35.0) % Reactive Lymphs % (Man) % Monocytes % (Manual) (0.0-7.3) % Eosinophils % (Manual) (0.0-4.3) % Basophils % (Manual) (0.0-1.8) % Metamyelocytes % % Myelocytes % % Promyelocytes % % Blast Cells % % Nucleated RBC % Seg Neutrophils # Man (1.8-7.7) K/mm3 Band Neutrophils # K/mm3 Lymphocytes # (Manual) (1.2-5.4) K/mm3 Abs React Lymphs (Man) K/mm3 Monocytes # (Manual) (0.0-0.8) K/mm3 Eosinophils # (Manual) (0.0-0.4) K/mm3 Basophils # (Manual) (0.0-0.1) K/mm3 Metamyelocytes # K/mm3 Myelocytes # K/mm3 Promyelocytes # K/mm3 Blast Cells # K/mm3 WBC Morphology Hypersegmented Neuts Hyposegmented Neuts Hypogranular Neuts Smudge Cells Toxic Granulation Toxic Vacuolation Dohle Bodies Pelger-Huet Anomaly Sarah Rods Platelet Estimate Clumped Platelets Plt Clumps, EDTA Large Platelets Giant Platelets Platelet Satelliting Plt Morphology Comment RBC Morphology Dimorphic RBCs Polychromasia Hypochromasia Poikilocytosis Anisocytosis Microcytosis Macrocytosis Spherocytes Pappenheimer Bodies Sickle Cells Target Cells Tear Drop Cells Ovalocytes Stomatocytes Helmet Cells Zarate-[place]el[place] Bodies [place] Rings Dysart Cells Bite Cells Crenated Cell Elliptocytes Acanthocytes (Spur) Rouleaux Hemoglobin C Crystals Schistocytes Malaria parasites Amador Bodies Hem Pathologist Commnt ABG pH (7.350-7.450) pH Units ABG pCO2 mm Hg ABG pO2 (80.0-90.0) mm Hg ABG HCO3 (20.0-26.0) mmol/L ABG O2 Saturation (95.0-99.0) % ABG O2 Content (0.0-44) ABG Base Excess (-2.0-3.0) mmol/L ABG Hemoglobin (12.0-16.0) gm/dl ABG Carboxyhemoglobin (0.0-5.0) % ABG Methemoglobin (0.0-1.5) % Oxyhemoglobin (95.0-99.0) % FiO2 % Sodium (137-145) mmol/L Potassium (3.6-5.0) mmol/L Chloride (98-107) mmol/L Carbon Dioxide (22-30) mmol/L Anion Gap mmol/L BUN (7-17) mg/dL Creatinine (0.6-1.2) mg/dL Estimated GFR ml/min BUN/Creatinine Ratio % Glucose (65-100) mg/dL POC Glucose (70-105) mg/dL Lactic Acid (0.7-2.0) mmol/L Calcium (8.4-10.2) mg/dL Magnesium 1.60 L (1.7-2.3) mg/dL Total Bilirubin 13.30 H (0.1-1.2) mg/dL Direct Bilirubin 8.8 H (0-0.2) mg/dL Indirect Bilirubin 4.5 mg/dL AST 176 H (5-40) units/L ALT 50 (7-56) units/L Alkaline Phosphatase 192 H (35-129) units/L Ammonia (25-60) umol/L Total Creatine Kinase (30-135) units/L Troponin T (0.00-0.029) ng/mL Total Protein 6.0 L (6.3-8.2) g/dL Albumin 3.0 L (3.9-5) g/dL Albumin/Globulin Ratio 1.0 % Lipase 17 (13-60) units/L TSH (0.270-4.200) mlU/mL Plasma/Serum Alcohol (0-0.07) % 11/02/21 11/02/21 Range/Units 21:08 21:48 WBC (4.5-11.0) K/mm3 RBC (3.65-5.03) M/mm3 Hgb (10.1-14.3) gm/dl Hct (30.3-42.9) % MCV (79-97) fl MCH (28-32) pg MCHC (30-34) % RDW (13.2-15.2) % Plt Count (140-440) K/mm3 Add Manual Diff Total Counted Seg Neuts % (Manual) (40.0-70.0) % Band Neutrophils % % Lymphocytes % (Manual) (13.4-35.0) % Reactive Lymphs % (Man) % Monocytes % (Manual) (0.0-7.3) % Eosinophils % (Manual) (0.0-4.3) % Basophils % (Manual) (0.0-1.8) % Metamyelocytes % % Myelocytes % % Promyelocytes % % Blast Cells % % Nucleated RBC % Seg Neutrophils # Man (1.8-7.7) K/mm3 Band Neutrophils # K/mm3 Lymphocytes # (Manual) (1.2-5.4) K/mm3 Abs React Lymphs (Man) K/mm3 Monocytes # (Manual) (0.0-0.8) K/mm3 Eosinophils # (Manual) (0.0-0.4) K/mm3 Basophils # (Manual) (0.0-0.1) K/mm3 Metamyelocytes # K/mm3 Myelocytes # K/mm3 Promyelocytes # K/mm3 Blast Cells # K/mm3 WBC Morphology Hypersegmented Neuts Hyposegmented Neuts Hypogranular Neuts Smudge Cells Toxic Granulation Toxic Vacuolation Dohle Bodies Pelger-Huet Anomaly Sarah Rods Platelet Estimate Clumped Platelets Plt Clumps, EDTA Large Platelets Giant Platelets Platelet Satelliting Plt Morphology Comment RBC Morphology Dimorphic RBCs Polychromasia Hypochromasia Poikilocytosis Anisocytosis Microcytosis Macrocytosis Spherocytes Pappenheimer Bodies Sickle Cells Target Cells Tear Drop Cells Ovalocytes Stomatocytes Helmet Cells Zarate-Chewel[place] Bodies [place] Rings Sharifa Cells Bite Cells Crenated Cell Elliptocytes Acanthocytes (Spur) Rouleaux Hemoglobin C Crystals Schistocytes Malaria parasites [place] Bodies Hem Pathologist Commnt ABG pH 7.545 H (7.350-7.450) pH Units ABG pCO2 54.3 mm Hg ABG pO2 88.2 (80.0-90.0) mm Hg ABG HCO3 45.9 H (20.0-26.0) mmol/L ABG O2 Saturation 97.3 (95.0-99.0) % ABG O2 Content 14.2 (0.0-44) ABG Base Excess 20.7 H (-2.0-3.0) mmol/L ABG Hemoglobin 10.8 L (12.0-16.0) gm/dl ABG Carboxyhemoglobin 3.5 (0.0-5.0) % ABG Methemoglobin 0.7 (0.0-1.5) % Oxyhemoglobin 93.1 L (95.0-99.0) % FiO2 32 % Sodium (137-145) mmol/L Potassium (3.6-5.0) mmol/L Chloride (98-107) mmol/L Carbon Dioxide (22-30) mmol/L Anion Gap mmol/L BUN (7-17) mg/dL Creatinine (0.6-1.2) mg/dL Estimated GFR ml/min BUN/Creatinine Ratio % Glucose (65-100) mg/dL POC Glucose (70-105) mg/dL Lactic Acid 6.80 H* (0.7-2.0) mmol/L Calcium (8.4-10.2) mg/dL Magnesium (1.7-2.3) mg/dL Total Bilirubin (0.1-1.2) mg/dL Direct Bilirubin (0-0.2) mg/dL Indirect Bilirubin mg/dL AST (5-40) units/L ALT (7-56) units/L Alkaline Phosphatase (35-129) units/L Ammonia (25-60) umol/L Total Creatine Kinase (30-135) units/L Troponin T (0.00-0.029) ng/mL Total Protein (6.3-8.2) g/dL Albumin (3.9-5) g/dL Albumin/Globulin Ratio % Lipase (13-60) units/L TSH (0.270-4.200) mlU/mL Plasma/Serum Alcohol (0-0.07) % - EKG Data -: EKG Interpreted by [facility] EKG shows normal: sinus rhythm, intervals (qtc 598), ST-T waves (nost) Rate: normal (95) - Radiology Data Radiology results: report reviewed CT ABDOMEN AND PELVIS WITH CONTRAST INDICATION / CLINICAL INFORMATION: gluteal wound, ams, hepatic encephalopathy. TECHNIQUE: Axial CT images were obtained through the abdomen and pelvis after IV contrast. All CT scans at this location are performed using CT dose reduction for ALARA by means of automated exposure control. COMPARISON: Abdominal ultrasound 12/13/2020 FINDINGS: LOWER CHEST: No significant abnormality. LIVER: Marked heterogeneous hypoattenuation of the liver, possibly representing severe steatosis with areas of focal fatty sparing. Superimposed hepatic masses cannot be excluded. Further characterization with multiphase liver mass CT or MRI is recommended. There is a small volume of ascitic fluid along the superior aspect of the liver. GALLBLADDER: Cholelithiasis within a distended gallbladder. There is pericholecystic fluid. BILE DUCTS: No significant abnormality. PANCREAS: The pancreas is atrophic with scattered calcifications. There is mild pancreatic ductal dilation measuring up to 6 mm. SPLEEN: No significant abnormality. ADRENALS: No significant abnormality. RIGHT KIDNEY / URETER: No significant abnormality. LEFT KIDNEY / URETER: No significant abnormality. STOMACH / SMALL BOWEL: No significant abnormality. COLON: No significant abnormality. APPENDIX: No significant abnormality. PERITONEUM: No free fluid. No free air. No fluid collection. LYMPH NODES: No significant adenopathy. AORTA / ARTERIES: Mild atherosclerotic calcification without acute abnormality. IVC / VEINS: No significant abnormality. URINARY BLADDER: No significant abnormality. REPRODUCTIVE ORGANS: Enlarged and multi fibroid uterus. ADDITIONAL FINDINGS: None. SKELETAL SYSTEM: No significant abnormality. IMPRESSION: 1. Marked heterogeneous hypoattenuation throughout the liver which may represent severe hepatic steatosis with areas of focal fatty sparing. Severe hepatitis could have a similar appearance. Underlying hepatic masses cannot be excluded. Further evaluation with multiphase liver mass CT or MRI is recommended. 2. There is a small volume of ascitic fluid along the superior aspect of the liver. 3. Cholelithiasis within a distended gallbladder with surrounding pericholecystic fluid. Findings can be seen in the setting of cholecystitis. Further evaluation with ultrasound is warranted. Gallbladder wall thickening may also be related to hepatic dysfunction. CHEST 1 VIEW 11/02/2021 9:14 PM INDICATION / CLINICAL INFORMATION: ams. COMPARISON: None available. FINDINGS: SUPPORT DEVICES: None. HEART / MEDIASTINUM: No significant abnormality. Mild elevation of the right hemidiaphragm. LUNGS / PLEURA: No significant pulmonary or pleural abnormality. No pneumothorax. ADDITIONAL FINDINGS: No significant additional findings. IMPRESSION: 1. No acute findings. CT head without contrast INDICATION : AMS. TECHNIQUE: Axial imaging performed from the skull apex through the skull base without the use of contrast. All CT scans at this location are performed using CT dose reduction for ALARA by means of automated exposure control. COMPARISON: CT head from 12/09/2020 FINDINGS: Parenchyma: No acute intracranial hemorrhage or parenchymal abnormality. Ventricles: Ventricles are normal in size and appear symmetric. Soft tissues: Soft tissues including the orbits appear normal. Bones: No acute osseous abnormality. Sinuses: Sinuses and mastoid air cells are clear. IMPRESSION: No acute abnormality. - Medical Decision Making 51-year-old female presents to the hospital altered mental status secondary to hepatic encephalopathy given elevated ammonia level and history of alcohol abuse. Patient also has significant electrolyte abnormalities which were supplemented in the ED. Patient has metabolic alkalosis, elevated lactic acid, so to be hypoxic on room air. CT head and checklist were unremarkable. CT abdomen pelvis findings noted. Patient covered with IV antibiotics cefepime and vancomycin for possible sepsis as well as 30 mill per KG IV fluid bolus. Case discussed with Dr. Jacobs general surgeon. Ultrasound performed to rule out cholecystitis with results pending at time of disposition. NM lactulose initially ordered but patient became slightly more responsive with IV fluids and therefore oral lactulose will be provided instead. Case discussed with Dr. Paulino hospitalist Critical Care Time: Yes Critical care time in (mins) excluding proc time.: 35 Critical care attestation.: If time is entered above; I have spent that time in minutes in the direct care of this critically ill patient, excluding procedure time. Critical Care Time: 35 Minutes of critical care time excluding procedures were used in the care of the patient. Patient required multiple assessments, interventions, and consultations. Patient has acute respiratory failure requiring supplemental oxy gen, significant electrolyte abnormalities with associated EKG changes requiring continuous cardiac monitoring and IV electrolyte replacement. ED Disposition Clinical Impression: EtOH dependence, Hepatic encephalopathy, Transaminitis, Hypokalemia, Hypomagne semia, Metabolic alkalosis, Elevated lactic acid level, Cholecystitis, Hypoxia, Buttock wound, Nausea and vomiting Disposition: 09 ADMITTED INPATIENT Is pt being admited?: Yes Condition: Stable Time of Disposition: 23:57
[2021-11-02] MEDS ORDERED: CEFEPIME/NS 2 GM/100 ML 2 GM/100 ML BAG IV ONE (23:12)
[2021-11-02] MEDS ORDERED: KETOROLAC 30 MG/1 ML INJ IV PRN (23:47)
[2021-11-02] MEDS ORDERED: MORPHINE 4 MG/1 ML INJ IV PRN (23:47)
[2021-11-02] MEDS ORDERED: MORPHINE 2 MG/1 ML INJ IV PRN (23:47)
[2021-11-02] MEDS ORDERED: POTASSIUM CHLORIDE 10 MEQ 10 MEQ/100 ML BAG IV ONE (23:49)
[2021-11-02] MEDS ORDERED: ONDANSETRON 4 MG/2 ML INJ IV ONE (23:58)
[2021-11-02] MEDS ORDERED: LACTULOSE 20 GM/30 ML ORAL LIQD PO ONE (23:58)
--- NOTE | 2021-11-03 00:29 | Ultrasound Report ---
ULTRASOUND ABDOMEN, LIMITED INDICATION / CLINICAL INFORMATION: abnl gb on ct. COMPARISON: CT abdomen and pelvis earlier today FINDINGS: PANCREAS: Pancreatic calcifications, likely secondary to chronic pancreatitis. No acute process. LIVER: Hepatomegaly and features of severe diffuse hepatic steatosis with near diffuse hyperechogenic ity. The portal vein is not well visualized, but this was noted to be patent on the prior CT. GALLBLADDER: Mildly hydropic gallbladder with several gallstones and layering biliary sludge. Minimal gallbladder wall thickening and trace pericholecystic fluid. BILE DUCTS: No significant abnormality. Common bile duct measures 6 mm. FREE FLUID: Small volume ascites. ADDITIONAL FINDINGS: None. IMPRESSION: 1. Cholelithiasis and gallbladder sludge with minimal gallbladder wall thickening and trace perichole cystic fluid. Findings are nonspecific and may be secondary to intrinsic hepatocellular disease versu s mild changes of cholecystitis. Further evaluation by nuclear medicine hepatobiliary scan recommende d to evaluate for cystic duct patency. 2. Hepatomegaly and severe hepatic steatosis. 3. Small volume ascites. 4. Features of chronic pancreatitis. Signer Name: Jeremiah Morales MD Signed: 11/03/2021 12:24 AM Workstation Name: [id number]
[2021-11-03] MEDS ORDERED: MORPHINE 4 MG/1 ML INJ IV PRN (00:51)
[2021-11-03] MEDS ORDERED: IBUPROFEN 600 MG TAB PO PRN (00:51)
[2021-11-03] MEDS ORDERED: SODIUM CHLORIDE 0.9% 1000 ML 1,000 ML IV SCH (01:00)
--- NOTE | 2021-11-03 01:04 | History and Physical Report ---
History of Present Illness Date of examination: 11/02/21 Date of admission: 11/02/21 23:46 Chief complaint: Altered mental status History of present illness: 51-year-old female with known history of alcohol abuse presenting to the emergency room today for evaluation of changes in mental status for 1 day. Most of the history was provided by the significant order as patient is unable to provide coherent history at this time. Patient has been having nausea and vo miting and has been having decreased oral intake for the past 3 to 4 days. She has not had any alcohol in the past few days. Has been no fever or chills, no chest pain or shortness of breath, no angie temesis and no bright red blood per rectum. Work-up in the emergency room today, lab reveals multiple electrolyte abnormalities including potassium of 1.7 lactic acid of 6.8, magnesium of 1.6, sodium of 125. Ammonia of 145. CT of the abdomen and pelvis reveals: 1. Marked heterogeneous hypoattenuation throughout the liver which may represent severe hepatic steatosis with areas of focal fatty sparing. Severe hepatitis could have a similar appearance. Underlying hepatic masses cannot be excluded. Further evaluation with multiphase liver mass CT or MRI is recommended. 2. There is a small volume of ascitic fluid along the superior aspect of the liver. 3. Cholelithiasis within a distended gallbladder with surrounding pericholecystic fluid. Findings can be seen in the setting of cholecystitis. Further evaluation with ultrasound is warranted. Gallbladder wall thickening may also be related to hepatic dysfunction. CTA of the head shows no acute findings Chest x-ray shows no acute findings. Abdominal ultrasound reveals: 1. Cholelithiasis and gallbladder sludge with minimal gallbladder wall thickening and trace pericholecystic fluid. Findings are nonspecific and may be secondary to intrinsic hepatocellular disease versus mild changes of cholecystitis. Further evaluation by nuclear medicine hepatobiliary scan recommended to evaluate for cystic duct patency. 2. Hepatomegaly and severe hepatic steatosis. 3. Small volume ascites. 4. Features of chronic pancreatitis. Patient being admitted with acute encephalopathy, electrolyte imbalance and hyperammonemia. Past History Past Medical History: anemia, other (Neuropathy, hypokalemia) Past Surgical History: No surgical history Social history: smoking (Current daily smoker) Family history: no significant family history Medications and Allergies Allergies Allergy/AdvReac Type Severity Reaction Status Date / Time No Known Allergies Allergy Verified 12/15/20 10:31 Home Medications Medication Instructions Recorded Confirmed Last Taken Type Acetaminophen/Diphenhydramine 2 tab PO HS 12/15/20 12/15/20 12/08/20 History [Tylenol Pm Ex-Strength Caplet] Aspirin/Caffeine [Bc Pain Relief 1 - 2 each PO QDAY 12/15/20 12/15/20 12/08/20 History Powder Packet] [employer] Foot Cream 1 cream TP QDAY 12/15/20 12/15/20 12/08/20 History [employer] Goats Cream 1 cream TP BID 12/15/20 12/15/20 12/08/20 History isopropyl alcohoL [Rubbing Alcohol] 5 ml TP QDAY 12/15/20 12/15/20 12/08/20 History witch Yosef [Witch Yosef] 5 ml TP QDAY 12/15/20 12/15/20 12/08/20 History Gabapentin 800 mg PO TID #90 capsule 12/18/20 Unknown Rx labetaloL [Labetalol 200mg TAB] 200 mg PO BID #60 tablet 12/18/20 Unknown Rx oxyCODONE /ACETAMINOPHEN [Percocet 1 tab PO Q4HR #10 tab 12/18/20 Unknown Rx 5/325] Active Meds: Active Medications Heparin Sodium (Porcine) (Heparin 5,000 Unit/1 Ml Vial) 5,000 unit SUB-Q Q8HR JANICE Sodium Chloride (Nacl 0.9% 1000 Ml) 1,000 mls @ 75 mls/hr IV DIRECT JANICE Ibuprofen (Ibuprofen 600 Mg Tab) 600 mg PO Q6H PRN PRN Reason: Pain, Mild (1-3) Ketorolac Tromethamine (Ketorolac 30 Mg/1 Ml Inj) 15 mg IV Q6H PRN PRN Reason: Pain, Mild (1-3) Stop: 11/07/21 23:46 Morphine Sulfate (Morphine 2 Mg/1 Ml Inj) 2 mg IV Q4H PRN PRN Reason: Pain, Moderate (4-6) Morphine Sulfate (Morphine 4 Mg/1 Ml Inj) 4 mg IV Q4H PRN PRN Reason: Pain , Severe (7-10) Morphine Sulfate (Morphine 2 Mg/1 Ml Inj) 2 mg IV Q4H PRN PRN Reason: Pain, Moderate (4-6) Morphine Sulfate (Morphine 4 Mg/1 Ml Inj) 4 mg IV Q4H PRN PRN Reason: Pain , Severe (7-10) Sodium Chloride (Sodium Chloride 0.9% 10 Ml Flush Syringe) 10 ml IV BID JANICE Sodium Chloride (Sodium Chloride 0.9% 10 Ml Flush Syringe) 10 ml IV PRN PRN PRN Reason: LINE FLUSH Review of Systems ROS unobtainable: due to mental status Exam - Constitutional Vitals: Temp Pulse Resp BP Pulse Ox 98.6 F 100 H 14 125/82 98 11/02/21 18:50 11/02/21 18:50 11/02/21 18:50 11/02/21 18:50 11/02/21 18:50 General appearance: Present: no acute distress, well-nourished - EENT Eyes: Present: PERRL, EOM intact. Absent: scleral icterus ENT: hearing intact, clear oral mucosa, dentition normal - Neck Neck: Present: supple, normal ROM - Respiratory Respiratory effort: normal Respiratory: bilateral: CTA - Cardiovascular Rhythm: regular Heart Sounds: Present: S1 & S2. Absent: gallop, systolic murmur, diastolic murmur, rub, click - Extremities Extremities: no ischemia, pulses symmetrical, No edema, normal temperature, normal color, Full ROM Peripheral Pulses: within normal limits - Abdominal General gastrointestinal: Present: soft, non-tender, non-distended, normal bowel sounds. Absent: mass - Integumentary Integumentary: Present: clear, warm, dry, normal turgor. Absent: rash - Musculoskeletal Musculoskeletal: strength equal bilaterally - Psychiatric Psychiatric: appropriate mood/affect, intact judgment & insight, memory intact, cooperative - Neurologic Neurologic: CNII-XII intact, no focal deficits, moves all extremities - Additional findings Additional findings: Skin:Right gluteal healing wound. Small open wound at the lower gluteal fold . HEART Score - HEART Score Troponin: Troponin T < 0.010 ng/mL (0.00-0.029) 11/02/21 20:05 Results - Labs CBC & Chem 7: 11/02/21 19:02 11/02/21 19:02 Labs: Abnormal lab results 11/02/21 11/02/21 11/02/21 Range/Units 18:48 19:02 19:02 WBC 15.6 H (4.5-11.0) K/mm3 RDW 28.9 H (13.2-15.2) % Seg Neuts % (Manual) 87.0 H (40.0-70.0) % Lymphocytes % (Manual) 5.0 L (13.4-35.0) % Monocytes % (Manual) 8.0 H (0.0-7.3) % Seg Neutrophils # Man 13.6 H (1.8-7.7) K/mm3 Lymphocytes # (Manual) 0.8 L (1.2-5.4) K/mm3 Monocytes # (Manual) 1.2 H (0.0-0.8) K/mm3 ABG pH (7.350-7.450) pH Units ABG HCO3 (20.0-26.0) mmol/L ABG Base Excess (-2.0-3.0) mmol/L ABG Hemoglobin (12.0-16.0) gm/dl Oxyhemoglobin (95.0-99.0) % Sodium 125 L (137-145) mmol/L Potassium 1.7 L* (3.6-5.0) mmol/L Chloride 62.3 L (98-107) mmol/L Carbon Dioxide 42 H* (22-30) mmol/L BUN 4 L (7-17) mg/dL Creatinine 0.2 L (0.6-1.2) mg/dL POC Glucose 136 H (70-105) mg/dL Lactic Acid (0.7-2.0) mmol/L Magnesium (1.7-2.3) mg/dL Total Bilirubin (0.1-1.2) mg/dL Direct Bilirubin (0-0.2) mg/dL AST (5-40) units/L Alkaline Phosphatase (35-129) units/L Ammonia (25-60) umol/L Total Protein (6.3-8.2) g/dL Albumin (3.9-5) g/dL 11/02/21 11/02/21 11/02/21 Range/Units 20:02 20:05 20:05 WBC (4.5-11.0) K/mm3 RDW (13.2-15.2) % Seg Neuts % (Manual) (40.0-70.0) % Lymphocytes % (Manual) (13.4-35.0) % Monocytes % (Manual) (0.0-7.3) % Seg Neutrophils # Man (1.8-7.7) K/mm3 Lymphocytes # (Manual) (1.2-5.4) K/mm3 Monocytes # (Manual) (0.0-0.8) K/mm3 ABG pH (7.350-7.450) pH Units ABG HCO3 (20.0-26.0) mmol/L ABG Base Excess (-2.0-3.0) mmol/L ABG Hemoglobin (12.0-16.0) gm/dl Oxyhemoglobin (95.0-99.0) % Sodium (137-145) mmol/L Potassium (3.6-5.0) mmol/L Chloride (98-107) mmol/L Carbon Dioxide (22-30) mmol/L BUN (7-17) mg/dL Creatinine (0.6-1.2) mg/dL POC Glucose 133 H (70-105) mg/dL Lactic Acid 7.60 H* (0.7-2.0) mmol/L Magnesium (1.7-2.3) mg/dL Total Bilirubin (0.1-1.2) mg/dL Direct Bilirubin (0-0.2) mg/dL AST (5-40) units/L Alkaline Phosphatase (35-129) units/L Ammonia 145.0 H (25-60) umol/L Total Protein (6.3-8.2) g/dL Albumin (3.9-5) g/dL 11/02/21 11/02/21 11/02/21 Range/Units 20:05 20:05 21:08 WBC (4.5-11.0) K/mm3 RDW (13.2-15.2) % Seg Neuts % (Manual) (40.0-70.0) % Lymphocytes % (Manual) (13.4-35.0) % Monocytes % (Manual) (0.0-7.3) % Seg Neutrophils # Man (1.8-7.7) K/mm3 Lymphocytes # (Manual) (1.2-5.4) K/mm3 Monocytes # (Manual) (0.0-0.8) K/mm3 ABG pH 7.545 H (7.350-7.450) pH Units ABG HCO3 45.9 H (20.0-26.0) mmol/L ABG Base Excess 20.7 H (-2.0-3.0) mmol/L ABG Hemoglobin 10.8 L (12.0-16.0) gm/dl Oxyhemoglobin 93.1 L (95.0-99.0) % Sodium (137-145) mmol/L Potassium (3.6-5.0) mmol/L Chloride (98-107) mmol/L Carbon Dioxide (22-30) mmol/L BUN (7-17) mg/dL Creatinine (0.6-1.2) mg/dL POC Glucose (70-105) mg/dL Lactic Acid (0.7-2.0) mmol/L Magnesium 1.60 L (1.7-2.3) mg/dL Total Bilirubin 13.30 H (0.1-1.2) mg/dL Direct Bilirubin 8.8 H (0-0.2) mg/dL AST 176 H (5-40) units/L Alkaline Phosphatase 192 H (35-129) units/L Ammonia (25-60) umol/L Total Protein 6.0 L (6.3-8.2) g/dL Albumin 3.0 L (3.9-5) g/dL 11/02/21 Range/Units 21:48 WBC (4.5-11.0) K/mm3 RDW (13.2-15.2) % Seg Neuts % (Manual) (40.0-70.0) % Lymphocytes % (Manual) (13.4-35.0) % Monocytes % (Manual) (0.0-7.3) % Seg Neutrophils # Man (1.8-7.7) K/mm3 Lymphocytes # (Manual) (1.2-5.4) K/mm3 Monocytes # (Manual) (0.0-0.8) K/mm3 ABG pH (7.350-7.450) pH Units ABG HCO3 (20.0-26.0) mmol/L ABG Base Excess (-2.0-3.0) mmol/L ABG Hemoglobin (12.0-16.0) gm/dl Oxyhemoglobin (95.0-99.0) % Sodium (137-145) mmol/L Potassium (3.6-5.0) mmol/L Chloride (98-107) mmol/L Carbon Dioxide (22-30) mmol/L BUN (7-17) mg/dL Creatinine (0.6-1.2) mg/dL POC Glucose (70-105) mg/dL Lactic Acid 6.80 H* (0.7-2.0) mmol/L Magnesium (1.7-2.3) mg/dL Total Bilirubin (0.1-1.2) mg/dL Direct Bilirubin (0-0.2) mg/dL AST (5-40) units/L Alkaline Phosphatase (35-129) units/L Ammonia (25-60) umol/L Total Protein (6.3-8.2) g/dL Albumin (3.9-5) g/dL Assessment and Plan Assessment: 1. Acute encephalopathy 2. History of alcohol abuse 3. Hyperammonemia 4. Elevated liver enzymes 5. Electrolyte imbalance-hypokalemia, hypomagnesemia 6. Lactic acidosis Plan: 1. Patient admitted and placed on IV fluid and empiric IV antibiotics.. 2. Electrolytes will be repleted and will monitor chemistry. 3. We will resume routine home medications. 4. We will monitor for alcohol withdrawal symptoms DVT prophylaxis: Subcutaneous heparin CODE STATUS: Full code
[2021-11-03] MEDS ORDERED: CEFEPIME/NS 2 GM/100 ML 2 GM/100 ML BAG IV ONE ×2 (03:40→08:00)
[2021-11-03] MEDS ORDERED: POTASSIUM CHLORIDE 10 MEQ 10 MEQ/100 ML BAG IV ONE (03:45)
[2021-11-03] MEDS ORDERED: LACTULOSE 20 GM/30 ML ORAL LIQD PO ONE (04:30)
[2021-11-03] MEDS: POTASSIUM CHLORIDE 10 MEQ 10 MEQ/100 ML BAG IV SCH ×6 (06:33→19:24)
[2021-11-03] MEDS: HEPARIN 5,000 UNIT/1 ML VIAL SUB-Q SCH ×3 (06:45→22:44)
[2021-11-03] MEDS ORDERED: POTASSIUM CHLORIDE 10 MEQ 10 MEQ/100 ML BAG IV SCH (08:00)
[2021-11-03] MEDS ORDERED: VANCOMYCIN PHARMACY TO DOSE IV SCH (08:00)
[2021-11-03] MEDS ORDERED: LORazepam 2 MG/ML VIAL IV PRN ×3 (08:00)
[2021-11-03] MEDS ORDERED: THIAMINE 100 MG, FOLIC ACID 1 MG, MULTIPLE VITAMIN INJ, ADULT 10 ML in SODIUM CHLORIDE ... IV ONE (11:00)
--- NOTE | 2021-11-03 12:59 | Progress Note ---
Assessment and Plan Assessment and plan: Altered mental status History of present illness: 51-year-old female with known history of alcohol abuse presenting to the emergency room today for evaluation of changes in mental status for 1 day. Most of the history was provided by the significant order as patient is unable to provide coherent history at this time. Patient has been having nausea and vomiting and has been having decreased oral intake for the past 3 to 4 days. She has not had any alcohol in the past few days. Has been no fever or chills, no chest pain or shortness of breath, no hematemesis and no bright red blood per rectum. Work-up in the emergency room today, lab reveals multiple electrolyte abnor malities including potassium of 1.7 lactic acid of 6.8, magnesium of 1.6, sodium of 125. Ammonia of 145. Patient being admitted with acute encephalopathy, electrolyte imbalance and hyperammonemia. Past History Past Medical History: anemia, other (Neuropathy, hypokalemia) Past Surgical History: No surgical history Social history: smoking (Current daily smoker) Family history: no significant family history CT of the abdomen and pelvis reveals: 1. Marked heterogeneous hypoattenuation throughout the liver which may represent severe hepatic steatosis with areas of focal fatty sparing. Severe hepatitis could have a similar appearance. Underlying hepatic masses cannot be excluded. Further evaluation with multiphase liver mass CT or MRI is recommended. 2. There is a small volume of ascitic fluid along the superior aspect of the liver. 3. Cholelithiasis within a distended gallbladder with surrounding pericholecystic fluid. Findings can be seen in the setting of cholecystitis. Further evaluation with ultrasound is warranted. Gallbladder wall thickening may also be related to hepatic dysfunction. CTA of the head shows no acute findings Chest x-ray shows no acute findings. Abdominal ultrasound reveals: 1. Cholelithiasis and gallbladder sludge with minimal gallbladder wall thickening and trace pericholecystic fluid. Findings are nonspecific and may be secondary to intrinsic hepatocellular disease versus mild changes of cholecystitis. Further evaluation by nuclear medicine hepatobiliary scan recommended to evaluate for cystic duct patency. 2. Hepatomegaly and severe hepatic steatosis. 3. Small volume ascites. 4. Features of chronic pancreatitis. 11/03: Patient seen and examined today mental status improving some. Discussed with the significant other who informs me that the patient had significant bouts of alcoholism and hospitalization about this time last year for the same event. She does have a history of chronic pancreatitis. We are awaiting repeat labs to further evaluate her electrolyte abnormality. I did discuss with the nurse and also with the dietitian will change her diet. We will start her on a banana bag to be able to replace thiamine, folic acid and multivitamins. She denies increase girth. She received counseling on the importance of quitting alcohol use 15 mins. She verbalized understanding of the risk of continued use of alcohol. She does not endorse to any abdominal pain at this time. Will refer outpatient for evaluation of the gallbladder while she is clinically stable. 1. Acute hepatic encephalopathy 2. EtOH use disorder with delirium tremens now resolved 3. Hyperammonemia 4. Hepatitis secondary to EtOH use 5. Electrolyte imbalance-hypokalemia, hypomagnesemia 6. Severe hypokalemia 7. lactic acidosis Plan: 1. Patient admitted and placed on IV fluid and empiric IV antibiotics.. 2. Electrolytes will be repleted and will monitor chemistry. 3. We will resume routine home medications. 4. We will monitor for alcohol withdrawal symptoms 5. Check LABS THIS AM 6. Check TSH DVT prophylaxis: Subcutaneous heparin CODE STATUS: Full code The high probability of a clinically significant, sudden or life threatening deterioration of the [gi] system(s) required my full and direct attention, intervention and personal management. The aggregate critical care time was [35] minutes. This time is in addition to time spent performing reported procedures but includes the following: [x] Data Review and interpretation [x] Patient assessment and monitoring of vital signs [x] Documentation [x] Medication orders and management History Interval history: Patient seen and examined this morning sonya at the bedside along with the patient. She is more awake and alert although was not able to give me adequate information as she did not remember the events that led to her being hospitalized. Hospitalist Physical - Physical exam Narrative exam: VITAL SIGNS: Reviewed. GENERAL: The patient appears normally developed, jundiced Vital signs as documented. HEAD: No signs of head trauma. EYES: Pupils are equal. icteric sclera, Extraocular motions intact. Propotosis EARS: Hearing grossly intact. MOUTH: Oropharynx is normal. NECK: No adenopathy, no JVD. CHEST: Chest with clear breath sounds bilaterally. No wheezes, rales, or rhonchi. CARDIAC: Regular rate and rhythm. S1 and S2, without murmurs, gallops, or rubs. VASCULAR: No Edema. Peripheral pulses normal and equal in all extremities. ABDOMEN: Soft, non tender and non distended. No rebound or guarding, and no masses palpated. Bowel Sounds normal. MUSCULOSKELETAL: Good range of motion of all major joints. Extremities without clubbing, cyanosis or edema. NEUROLOGIC EXAM: Alert and oriented x 2. No focal sensory or strength deficits. Speech normal. Follows some commands. PSYCHIATRIC: Mood normal. SKIN: detail exam as documented in skin assessment - Constitutional Vitals: Temp Pulse Resp BP Pulse Ox 98.8 F 97 H 22 113/59 96 11/03/21 09:37 11/03/21 09:31 11/03/21 09:31 11/03/21 09:31 11/03/21 09:31 General appearance: Present: no acute distress, well-nourished HEART Score - HEART Score Troponin: Troponin T < 0.010 ng/mL (0.00-0.029) 11/02/21 20:05 Results - Labs CBC & Chem 7: 11/02/21 19:02 11/02/21 19:02 Labs: Laboratory Last Values WBC 15.6 K/mm3 (4.5-11.0) H 11/02/21 19:02 RBC 4.02 M/mm3 (3.65-5.03) 11/02/21 19:02 Hgb 12.1 gm/dl (10.1-14.3) 11/02/21 19:02 Hct 37.0 % (30.3-42.9) 11/02/21 19:02 MCV 92 fl (79-97) 11/02/21 19:02 MCH 30 pg (28-32) 11/02/21 19:02 MCHC 33 % (30-34) 11/02/21 19:02 RDW 28.9 % (13.2-15.2) H 11/02/21 19:02 Plt Count 180 K/mm3 (140-440) 11/02/21 19:02 Add Manual Diff Complete 11/02/21 19:02 Total Counted 100 11/02/21 19:02 Seg Neuts % (Manual) 87.0 % (40.0-70.0) H 11/02/21 19:02 Band Neutrophils % 0 % 11/02/21 19:02 Lymphocytes % (Manual) 5.0 % (13.4-35.0) L 11/02/21 19:02 Reactive Lymphs % (Man) 0 % 11/02/21 19:02 Monocytes % (Manual) 8.0 % (0.0-7.3) H 11/02/21 19:02 Eosinophils % (Manual) 0 % (0.0-4.3) 11/02/21 19:02 Basophils % (Manual) 0 % (0.0-1.8) 11/02/21 19:02 Metamyelocytes % 0 % 11/02/21 19:02 Myelocytes % 0 % 11/02/21 19:02 Promyelocytes % 0 % 11/02/21 19:02 Blast Cells % 0 % 11/02/21 19:02 Nucleated RBC % Not Reportable 11/02/21 19:02 Seg Neutrophils # Man 13.6 K/mm3 (1.8-7.7) H 11/02/21 19:02 Band Neutrophils # 0.0 K/mm3 11/02/21 19:02 Lymphocytes # (Manual) 0.8 K/mm3 (1.2-5.4) L 11/02/21 19:02 Abs React Lymphs (Man) 0.0 K/mm3 11/02/21 19:02 Monocytes # (Manual) 1.2 K/mm3 (0.0-0.8) H 11/02/21 19:02 Eosinophils # (Manual) 0.0 K/mm3 (0.0-0.4) 11/02/21 19:02 Basophils # (Manual) 0.0 K/mm3 (0.0-0.1) 11/02/21 19:02 Metamyelocytes # 0.0 K/mm3 11/02/21 19:02 Myelocytes # 0.0 K/mm3 11/02/21 19:02 Promyelocytes # 0.0 K/mm3 11/02/21 19:02 Blast Cells # 0.0 K/mm3 11/02/21 19:02 WBC Morphology Not Reportable 11/02/21 19:02 Hypersegmented Neuts Not Reportable 11/02/21 19:02 Hyposegmented Neuts Not Reportable 11/02/21 19:02 Hypogranular Neuts Not Reportable 11/02/21 19:02 Smudge Cells Not Reportable 11/02/21 19:02 Toxic Granulation Not Reportable 11/02/21 19:02 Toxic Vacuolation Not Reportable 11/02/21 19:02 Dohle Bodies Not Reportable 11/02/21 19:02 Pelger-Huet Anomaly Not Reportable 11/02/21 19:02 Sarah Rods Not Reportable 11/02/21 19:02 Platelet Estimate Consistent w auto 11/02/21 19:02 Clumped Platelets Not Reportable 11/02/21 19:02 Plt Clumps, EDTA Not Reportable 11/02/21 19:02 Large Platelets Not Reportable 11/02/21 19:02 Giant Platelets Not Reportable 11/02/21 19:02 Platelet Satelliting Not Reportable 11/02/21 19:02 Plt Morphology Comment Not Reportable 11/02/21 19:02 RBC Morphology Not Reportable 11/02/21 19:02 Dimorphic RBCs Yes 11/02/21 19:02 Polychromasia Not Reportable 11/02/21 19:02 Hypochromasia Not Reportable 11/02/21 19:02 Poikilocytosis Not Reportable 11/02/21 19:02 Anisocytosis 3+ 11/02/21 19:02 Microcytosis Not Reportable 11/02/21 19:02 Macrocytosis Not Reportable 11/02/21 19:02 Spherocytes Not Reportable 11/02/21 19:02 Pappenheimer Bodies Not Reportable 11/02/21 19:02 Sickle Cells Not Reportable 11/02/21 19:02 Target Cells 2+ 11/02/21 19:02 Tear Drop Cells Not Reportable 11/02/21 19:02 Ovalocytes Not Reportable 11/02/21 19:02 Stomatocytes 2+ 11/02/21 19:02 Helmet Cells Not Reportable 11/02/21 19:02 Zarate-Sherrill Bodies Not Reportable 11/02/21 19:02 [place] Rings Not Reportable 11/02/21 19:02 [place] Cells Not Reportable 11/02/21 19:02 Bite Cells Not Reportable 11/02/21 19:02 Crenated Cell Not Reportable 11/02/21 19:02 Elliptocytes Not Reportable 11/02/21 19:02 Acanthocytes (Spur) Not Reportable 11/02/21 19:02 Rouleaux Not Reportable 11/02/21 19:02 Hemoglobin C Crystals Not Reportable 11/02/21 19:02 Schistocytes Not Reportable 11/02/21 19:02 Malaria parasites Not Reportable 11/02/21 19:02 [place] Bodies Not Reportable 11/02/21 19:02 Hem Pathologist Commnt No 11/02/21 19:02 ABG pH 7.545 pH Units (7.350-7.450) H 11/02/21 21:08 ABG pCO2 54.3 mm Hg 11/02/21 21:08 ABG pO2 88.2 mm Hg (80.0-90.0) 11/02/21 21:08 ABG HCO3 45.9 mmol/L (20.0-26.0) H 11/02/21 21:08 ABG O2 Saturation 97.3 % (95.0-99.0) 11/02/21 21:08 ABG O2 Content 14.2 (0.0-44) 11/02/21 21:08 ABG Base Excess 20.7 mmol/L (-2.0-3.0) H 11/02/21 21:08 ABG Hemoglobin 10.8 gm/dl (12.0-16.0) L 11/02/21 21:08 ABG Carboxyhemoglobin 3.5 % (0.0-5.0) 11/02/21 21:08 ABG Methemoglobin 0.7 % (0.0-1.5) 11/02/21 21:08 Oxyhemoglobin 93.1 % (95.0-99.0) L 11/02/21 21:08 FiO2 32 % 11/02/21 21:08 Sodium 125 mmol/L (137-145) L 11/02/21 19:02 Potassium 1.7 mmol/L (3.6-5.0) L* 11/02/21 19:02 Chloride 62.3 mmol/L (98-107) L 11/02/21 19:02 Carbon Dioxide 42 mmol/L (22-30) H* 11/02/21 19:02 Anion Gap 22 mmol/L 11/02/21 19:02 BUN 4 mg/dL (7-17) L 11/02/21 19:02 Creatinine 0.2 mg/dL (0.6-1.2) L 11/02/21 19:02 Estimated GFR > 60 ml/min 11/02/21 19:02 BUN/Creatinine Ratio 20 % 11/02/21 19:02 Glucose 100 mg/dL (65-100) 11/02/21 19:02 POC Glucose 133 mg/dL (70-105) H 11/02/21 20:02 Lactic Acid 4.30 mmol/L (0.7-2.0) H* 11/03/21 04:23 Calcium 8.5 mg/dL (8.4-10.2) 11/02/21 19:02 Magnesium 1.60 mg/dL (1.7-2.3) L 11/02/21 20:05 Total Bilirubin 13.30 mg/dL (0.1-1.2) H 11/02/21 20:05 Direct Bilirubin 8.8 mg/dL (0-0.2) H 11/02/21 20:05 Indirect Bilirubin 4.5 mg/dL 11/02/21 20:05 AST 176 units/L (5-40) H 11/02/21 20:05 ALT 50 units/L (7-56) 11/02/21 20:05 Alkaline Phosphatase 192 units/L (35-129) H 11/02/21 20:05 Ammonia 145.0 umol/L (25-60) H 11/02/21 20:05 Total Creatine Kinase 134 units/L (30-135) 11/02/21 20:05 Troponin T < 0.010 ng/mL (0.00-0.029) 11/02/21 20:05 Total Protein 6.0 g/dL (6.3-8.2) L 11/02/21 20:05 Albumin 3.0 g/dL (3.9-5) L 11/02/21 20:05 Albumin/Globulin Ratio 1.0 % 11/02/21 20:05 Lipase 17 units/L (13-60) 11/02/21 20:05 TSH 0.744 mlU/mL (0.270-4.200) 11/02/21 20:05 Plasma/Serum Alcohol < 0.01 % (0-0.07) 11/02/21 20:05 Microbiology: Microbiology 11/02/21 21:48 Peripheral/Venous Blood Culture - Preliminary Culture in Progress 11/02/21 21:48 Peripheral/Venous Blood Culture - Preliminary Culture in Progress [place]/IV: Voiding Method External Female Catheter Active Medications - Current Medications Current Medications: Generic Name Dose Route Start Last Admin Trade Name Freq PRN Reason Stop Dose Admin Heparin Sodium (Porcine) 5,000 unit 11/03/21 06:00 11/03/21 06:45 Heparin 5,000 Unit/1 Ml Vial SUB-Q 5,000 unit Q8HR JANICE Administration Sodium Chloride 1,000 mls @ 75 mls/hr 11/03/21 01:00 11/03/21 06:30 Nacl 0.9% 1000 Ml IV 75 mls/hr DIRECT JANICE Administration Cefepime HCl 2 gm in 100 mls @ 200 mls/hr 11/03/21 16:00 Cefepime/Ns 2 Gm/100 Ml IV Q8H JANICE Protocol Thiamine HCl 100 mg/ Folic 1,011.2 mls @ 250 mls/hr 11/03/21 11:00 11/03/21 12:34 Acid 1 mg/ Multivitamins/ IV 11/03/21 15:02 250 mls/hr Minerals 10 ml/ Sodium ONCE ONE Administration Chloride Ibuprofen 600 mg 11/03/21 00:51 Ibuprofen 600 Mg Tab PO Q6H PRN Pain, Mild (1-3) Lorazepam 2 mg 11/03/21 08:00 Lorazepam 2 Mg/Ml Vial IV Q1H PRN CIWA-Ar 8-15 Lorazepam 4 mg 11/03/21 08:00 Lorazepam 2 Mg/Ml Vial IV Q1H PRN CIWA-Ar 16-25 Lorazepam 4 mg 11/03/21 08:00 Lorazepam 2 Mg/Ml Vial IV Q15MIN PRN CIWA-Ar >25 Morphine Sulfate 2 mg 11/03/21 00:51 Morphine 2 Mg/1 Ml Inj IV Q4H PRN Pain, Moderate (4-6) Morphine Sulfate 4 mg 11/03/21 00:51 Morphine 4 Mg/1 Ml Inj IV Q4H PRN Pain , Severe (7-10) Sodium Chloride 10 ml 11/03/21 10:00 11/03/21 09:24 Sodium Chloride 0.9% 10 Ml Flush Syringe IV 10 ml BID JANICE Administration Sodium Chloride 10 ml 11/03/21 00:51 Sodium Chloride 0.9% 10 Ml Flush Syringe IV PRN PRN LINE FLUSH Nutrition/Malnutrition Assess - Dietary Evaluation Nutrition/Malnutrition Findings: Nutrition Notes Start: 11/03/21 09:55 Freq: Status: Active Protocol: Document 11/03/21 09:55 CM (Rec: 11/03/21 10:14 CM [id number]) Co-Sign 11/03/21 09:55 WW Nutrition Notes Need for Assessment generated from: MD Order,Education Initial or Follow up Brief Note Other Pertinent Diagnosis AMS, Hyper ammonemia, Elevated LFTs, Lactic Acidosis, N/V, decreased intake Current Diet Regular Diet Labs/Tests 11/03: Na 125 K 1.7 Cl 62.3 CO2 42 Mg 1.6 AST 176 ALP 192 Pertinent Medications 11/03: Reviewed Height 5 ft 4 in Weight 72.575 kg [place] Body Weight (kg) 54.54 BMI 27.4 Intake Prior to Admission Good Weight change and time frame No unintentional wt loss AUTOMATION TECH per malnutrition screening tool assessment. Weight Status Overweight Subjective/Other Information RD consult for diet education. Pt currently in IMCU with AMS at this time - pt not an appropriate candidate for diet education. Currently on regular diet - given medical condition recommend changing to cardiac diet. Recommend Mg and K repletion protocol - check Phos. Recommend Thiamine and Folic Acid supplementation. Percent of energy/protein needs met: Regular diet provides 2289kcal /89g PRO q day Burn Absent Trauma Absent GI Symptoms Nausea,Vomiting Food Allergy No Skin Integrity/Comment WNL #1 Nutrition Diagnosis Altered nutrition-related laboratory values Etiology Hepatic dysfunction As Evidenced by Signs and Symptoms AST 176, ALP 192 Is patient on ventilator? No Is Patient Ambulatory and/or Out of Bed No REE-([facility]-confined to bed) 1600.824 Kcal/Kg value to use for calculation 25 Approximate Energy Requirements Using 1814 kcal/Kg Calculation Used for Recommendations Kcal/kg Additional Notes Protein: 0.6-0.8g/kg ABW; 44- 58g PRO q day Fluids: 1mL/kcal or per MD Nutrition Intervention Change Diet Order: Recommend changing diet order to cardiac diet Goal #1 MNT to aid in normalizing altered lab values Additional Comments Monitor need for diet education
[2021-11-03 13:32] LABS: INR 2.06 (0.87-1.13)
[2021-11-03 13:47] LABS: Blood Urea Nitrogen 5 mg/dL (7-17); Calcium 7.9 mg/dL (8.4-10.2); Hemolysis Index 64
[2021-11-03 13:51] LABS: Albumin 2.6 g/dL (3.9-5); Bilirubin,Direct 7.9 mg/dL (0-0.2)
--- NOTE | 2021-11-03 13:55 | Consultation ---
History of Present Illness Consult date: 11/03/21 Reason for consult: gallstones Chief complaint: Abnormal gallbladder on imaging - History of present illness History of present illness: 51-year-old female with a history of alcohol abuse who presents to the hospital secondary to altered mental status. Apparently the patient is having nausea and vomiting decreased appetite for the last 3 to 4 days. Since the start of the symptoms the patient has not had any alcohol. Otherwise she drinks daily. Today the patient feels slightly better. She is more alert. She states that she has diffuse abdominal discomfort but this is chronic. She always has a poor appetite. She denies any nausea or vomiting today. She tolerated few bites of a regular diet. She is afebrile. Past History Past Medical History: anemia, other (Neuropathy, hypokalemia) Past Surgical History: No surgical history Social history: smoking (Current daily smoker), alcohol abuse Family history: no significant family history Medications and Allergies Allergies Allergy/AdvReac Type Severity Reaction Status Date / Time No Known Allergies Allergy Verified 11/03/21 07:57 Home Medications Medication Instructions Recorded Confirmed Last Taken Type Acetaminophen/Diphenhydramine 2 tab PO HS 12/15/20 12/15/20 12/08/20 History [Tylenol Pm Ex-Strength Caplet] Aspirin/Caffeine [Bc Pain Relief 1 - 2 each PO QDAY 12/15/20 12/15/20 12/08/20 History Powder Packet] Capone Sonido Foot Cream 1 cream TP QDAY 12/15/20 12/15/20 12/08/20 History Two Old Goats Cream 1 cream TP BID 12/15/20 12/15/20 12/08/20 History isopropyl alcohoL [Rubbing Alcohol] 5 ml TP QDAY 12/15/20 12/15/20 12/08/20 History witch Yosef [Witch Yosef] 5 ml TP QDAY 12/15/20 12/15/20 12/08/20 History Gabapentin 800 mg PO TID #90 capsule 12/18/20 Unknown Rx labetaloL [Labetalol 200mg TAB] 200 mg PO BID #60 tablet 12/18/20 Unknown Rx oxyCODONE /ACETAMINOPHEN [Percocet 1 tab PO Q4HR #10 tab 12/18/20 Unknown Rx 5/325] Active Meds: Active Medications Heparin Sodium (Porcine) (Heparin 5,000 Unit/1 Ml Vial) 5,000 unit SUB-Q Q8HR [facility] Last Admin: 11/03/21 06:45 Dose: 5,000 unit Sodium Chloride (Nacl 0.9% 1000 Ml) 1,000 mls @ 75 mls/hr IV DIRECT [facility] Last Admin: 11/03/21 06:30 Dose: 75 mls/hr Cefepime HCl (Cefepime/Ns 2 Gm/100 Ml) 2 gm in 100 mls @ 200 mls/hr IV Q8H [facility]; Protocol Thiamine HCl 100 mg/ Folic Acid 1 mg/ Multivitamins/Minerals 10 ml/ Sodium Chloride 1,011.2 mls @ 250 mls/hr IV ONCE ONE Stop: 11/03/21 15:02 Last Admin: 11/03/21 12:34 Dose: 250 mls/hr Ibuprofen (Ibuprofen 600 Mg Tab) 600 mg PO Q6H PRN PRN Reason: Pain, Mild (1-3) Lorazepam (Lorazepam 2 Mg/Ml Vial) 2 mg IV Q1H PRN PRN Reason: CIWA-Ar 8-15 Lorazepam (Lorazepam 2 Mg/Ml Vial) 4 mg IV Q1H PRN PRN Reason: CIWA-Ar 16-25 Lorazepam (Lorazepam 2 Mg/Ml Vial) 4 mg IV Q15MIN PRN PRN Reason: CIWA-Ar >25 Morphine Sulfate (Morphine 2 Mg/1 Ml Inj) 2 mg IV Q4H PRN PRN Reason: Pain, Moderate (4-6) Morphine Sulfate (Morphine 4 Mg/1 Ml Inj) 4 mg IV Q4H PRN PRN Reason: Pain , Severe (7-10) Sodium Chloride (Sodium Chloride 0.9% 10 Ml Flush Syringe) 10 ml IV BID [facility] Last Admin: 11/03/21 09:24 Dose: 10 ml Sodium Chloride (Sodium Chloride 0.9% 10 Ml Flush Syringe) 10 ml IV PRN PRN PRN Reason: LINE FLUSH Review of Systems All systems: negative (10 point ROS performed and negative except for that lis bianca in HPI) Exam Vital Signs Temp Pulse Resp BP Pulse Ox 98.6 F 100 H 14 125/82 98 11/02/21 18:50 11/02/21 18:50 11/02/21 18:50 11/02/21 18:50 11/02/21 18:50 Narrative exam: Gen.: Awake, alert, oriented x3. No apparent distress. Disheveled appearing. ENT: Trachea midline. No lymphadenopathy. No scleral icterus or conjunctival pallor CV: S1, S2 present Respiratory: No audible wheezes Abdomen: Soft, nondistended, protuberant, mild discomfort on palpation in the lower abdomen. No right upper quadrant tenderness. No rebound, rigidity, guarding Extremities: No clubbing, cyanosis, edema Results - Labs 11/02/21 19:02 11/03/21 12:46 Abnormal lab results 11/02/21 11/02/21 11/02/21 Range/Units 18:48 19:02 19:02 WBC 15.6 H (4.5-11.0) K/mm3 RDW 28.9 H (13.2-15.2) % Seg Neuts % (Manual) 87.0 H (40.0-70.0) % Lymphocytes % (Manual) 5.0 L (13.4-35.0) % Monocytes % (Manual) 8.0 H (0.0-7.3) % Seg Neutrophils # Man 13.6 H (1.8-7.7) K/mm3 Lymphocytes # (Manual) 0.8 L (1.2-5.4) K/mm3 Monocytes # (Manual) 1.2 H (0.0-0.8) K/mm3 PT (12.2-14.9) Sec. INR (0.87-1.13) ABG pH (7.350-7.450) pH Units ABG HCO3 (20.0-26.0) mmol/L ABG Base Excess (-2.0-3.0) mmol/L ABG Hemoglobin (12.0-16.0) gm/dl Oxyhemoglobin (95.0-99.0) % Sodium 125 L (137-145) mmol/L Potassium 1.7 L* (3.6-5.0) mmol/L Chloride 62.3 L (98-107) mmol/L Carbon Dioxide 42 H* (22-30) mmol/L BUN 4 L (7-17) mg/dL Creatinine 0.2 L (0.6-1.2) mg/dL Glucose (65-100) mg/dL POC Glucose 136 H (70-105) mg/dL Lactic Acid (0.7-2.0) mmol/L Calcium (8.4-10.2) mg/dL Magnesium (1.7-2.3) mg/dL Total Bilirubin (0.1-1.2) mg/dL Direct Bilirubin (0-0.2) mg/dL AST (5-40) units/L Alkaline Phosphatase (35-129) units/L Ammonia (25-60) umol/L Total Protein (6.3-8.2) g/dL Albumin (3.9-5) g/dL 11/02/21 11/02/21 11/02/21 Range/Units 20:02 20:05 20:05 WBC (4.5-11.0) K/mm3 RDW (13.2-15.2) % Seg Neuts % (Manual) (40.0-70.0) % Lymphocytes % (Manual) (13.4-35.0) % Monocytes % (Manual) (0.0-7.3) % Seg Neutrophils # Man (1.8-7.7) K/mm3 Lymphocytes # (Manual) (1.2-5.4) K/mm3 Monocytes # (Manual) (0.0-0.8) K/mm3 PT (12.2-14.9) Sec. INR (0.87-1.13) ABG pH (7.350-7.450) pH Units ABG HCO3 (20.0-26.0) mmol/L ABG Base Excess (-2.0-3.0) mmol/L ABG Hemoglobin (12.0-16.0) gm/dl Oxyhemoglobin (95.0-99.0) % Sodium (137-145) mmol/L Potassium (3.6-5.0) mmol/L Chloride (98-107) mmol/L Carbon Dioxide (22-30) mmol/L BUN (7-17) mg/dL Creatinine (0.6-1.2) mg/dL Glucose (65-100) mg/dL POC Glucose 133 H (70-105) mg/dL Lactic Acid 7.60 H* (0.7-2.0) mmol/L Calcium (8.4-10.2) mg/dL Magnesium (1.7-2.3) mg/dL Total Bilirubin (0.1-1.2) mg/dL Direct Bilirubin (0-0.2) mg/dL AST (5-40) units/L Alkaline Phosphatase (35-129) units/L Ammonia 145.0 H (25-60) umol/L Total Protein (6.3-8.2) g/dL Albumin (3.9-5) g/dL 11/02/21 11/02/21 11/02/21 Range/Units 20:05 20:05 21:08 WBC (4.5-11.0) K/mm3 RDW (13.2-15.2) % Seg Neuts % (Manual) (40.0-70.0) % Lymphocytes % (Manual) (13.4-35.0) % Monocytes % (Manual) (0.0-7.3) % Seg Neutrophils # Man (1.8-7.7) K/mm3 Lymphocytes # (Manual) (1.2-5.4) K/mm3 Monocytes # (Manual) (0.0-0.8) K/mm3 PT (12.2-14.9) Sec. INR (0.87-1.13) ABG pH 7.545 H (7.350-7.450) pH Units ABG HCO3 45.9 H (20.0-26.0) mmol/L ABG Base Excess 20.7 H (-2.0-3.0) mmol/L ABG Hemoglobin 10.8 L (12.0-16.0) gm/dl Oxyhemoglobin 93.1 L (95.0-99.0) % Sodium (137-145) mmol/L Potassium (3.6-5.0) mmol/L Chloride (98-107) mmol/L Carbon Dioxide (22-30) mmol/L BUN (7-17) mg/dL Creatinine (0.6-1.2) mg/dL Glucose (65-100) mg/dL POC Glucose (70-105) mg/dL Lactic Acid (0.7-2.0) mmol/L Calcium (8.4-10.2) mg/dL Magnesium 1.60 L (1.7-2.3) mg/dL Total Bilirubin 13.30 H (0.1-1.2) mg/dL Direct Bilirubin 8.8 H (0-0.2) mg/dL AST 176 H (5-40) units/L Alkaline Phosphatase 192 H (35-129) units/L Ammonia (25-60) umol/L Total Protein 6.0 L (6.3-8.2) g/dL Albumin 3.0 L (3.9-5) g/dL 11/02/21 11/03/21 11/03/21 Range/Units 21:48 04:23 12:46 WBC (4.5-11.0) K/mm3 RDW (13.2-15.2) % Seg Neuts % (Manual) (40.0-70.0) % Lymphocytes % (Manual) (13.4-35.0) % Monocytes % (Manual) (0.0-7.3) % Seg Neutrophils # Man (1.8-7.7) K/mm3 Lymphocytes # (Manual) (1.2-5.4) K/mm3 Monocytes # (Manual) (0.0-0.8) K/mm3 PT (12.2-14.9) Sec. INR (0.87-1.13) ABG pH (7.350-7.450) pH Units ABG HCO3 (20.0-26.0) mmol/L ABG Base Excess (-2.0-3.0) mmol/L ABG Hemoglobin (12.0-16.0) gm/dl Oxyhemoglobin (95.0-99.0) % Sodium (137-145) mmol/L Potassium (3.6-5.0) mmol/L Chloride 77.5 L (98-107) mmol/L Carbon Dioxide (22-30) mmol/L BUN 5 L (7-17) mg/dL Creatinine (0.6-1.2) mg/dL Glucose 103 H (65-100) mg/dL POC Glucose (70-105) mg/dL Lactic Acid 6.80 H* 4.30 H* (0.7-2.0) mmol/L Calcium 7.9 L (8.4-10.2) mg/dL Magnesium (1.7-2.3) mg/dL Total Bilirubin (0.1-1.2) mg/dL Direct Bilirubin (0-0.2) mg/dL AST (5-40) units/L Alkaline Phosphatase (35-129) units/L Ammonia (25-60) umol/L Total Protein (6.3-8.2) g/dL Albumin (3.9-5) g/dL 11/03/21 11/03/21 Range/Units 12:46 12:46 WBC (4.5-11.0) K/mm3 RDW (13.2-15.2) % Seg Neuts % (Manual) (40.0-70.0) % Lymphocytes % (Manual) (13.4-35.0) % Monocytes % (Manual) (0.0-7.3) % Seg Neutrophils # Man (1.8-7.7) K/mm3 Lymphocytes # (Manual) (1.2-5.4) K/mm3 Monocytes # (Manual) (0.0-0.8) K/mm3 PT 26.4 H (12.2-14.9) Sec. INR 2.06 H (0.87-1.13) ABG pH (7.350-7.450) pH Units ABG HCO3 (20.0-26.0) mmol/L ABG Base Excess (-2.0-3.0) mmol/L ABG Hemoglobin (12.0-16.0) gm/dl Oxyhemoglobin (95.0-99.0) % Sodium (137-145) mmol/L Potassium (3.6-5.0) mmol/L Chloride (98-107) mmol/L Carbon Dioxide (22-30) mmol/L BUN (7-17) mg/dL Creatinine (0.6-1.2) mg/dL Glucose (65-100) mg/dL POC Glucose (70-105) mg/dL Lactic Acid (0.7-2.0) mmol/L Calcium (8.4-10.2) mg/dL Magnesium (1.7-2.3) mg/dL Total Bilirubin 12.10 H (0.1-1.2) mg/dL Direct Bilirubin 7.9 H (0-0.2) mg/dL AST 192 H (5-40) units/L Alkaline Phosphatase 150 H (35-129) units/L Ammonia (25-60) umol/L Total Protein 5.0 L (6.3-8.2) g/dL Albumin 2.6 L (3.9-5) g/dL Diabetes panel 11/02/21 11/02/21 11/03/21 Range/Units 19:02 20:05 12:46 Sodium 125 L (137-145) mmol/L Potassium 1.7 L* (3.6-5.0) mmol/L Chloride 62.3 L 77.5 L (98-107) mmol/L Carbon Dioxide 42 H* (22-30) mmol/L BUN 4 L 5 L (7-17) mg/dL Creatinine 0.2 L (0.6-1.2) mg/dL Glucose 100 103 H (65-100) mg/dL Calcium 8.5 7.9 L (8.4-10.2) mg/dL AST 176 H (5-40) units/L ALT 50 (7-56) units/L Alkaline Phosphatase 192 H (35-129) units/L Total Protein 6.0 L (6.3-8.2) g/dL Albumin 3.0 L (3.9-5) g/dL 11/03/21 Range/Units 12:46 Sodium (137-145) mmol/L Potassium (3.6-5.0) mmol/L Chloride (98-107) mmol/L Carbon Dioxide (22-30) mmol/L BUN (7-17) mg/dL Creatinine (0.6-1.2) mg/dL Glucose (65-100) mg/dL Calcium (8.4-10.2) mg/dL AST 192 H (5-40) units/L ALT 51 (7-56) units/L Alkaline Phosphatase 150 H (35-129) units/L Total Protein 5.0 L (6.3-8.2) g/dL Albumin 2.6 L (3.9-5) g/dL Thyroid panel 11/02/21 Range/Units 20:05 TSH 0.744 (0.270-4.200) mlU/mL Calcium panel 11/02/21 11/02/21 11/03/21 Range/Units 19:02 20:05 12:46 Calcium 8.5 7.9 L (8.4-10.2) mg/dL Albumin 3.0 L (3.9-5) g/dL 11/03/21 Range/Units 12:46 Calcium (8.4-10.2) mg/dL Albumin 2.6 L (3.9-5) g/dL Pituitary panel 11/02/21 11/02/21 11/03/21 Range/Units 19:02 20:05 12:46 Sodium 125 L (137-145) mmol/L Potassium 1.7 L* (3.6-5.0) mmol/L Chloride 62.3 L 77.5 L (98-107) mmol/L Carbon Dioxide 42 H* (22-30) mmol/L BUN 4 L 5 L (7-17) mg/dL Creatinine 0.2 L (0.6-1.2) mg/dL Glucose 100 103 H (65-100) mg/dL Calcium 8.5 7.9 L (8.4-10.2) mg/dL TSH 0.744 (0.270-4.200) mlU/mL Adrenal panel 11/02/21 11/02/21 11/03/21 Range/Units 19:02 20:05 12:46 Sodium 125 L (137-145) mmol/L Potassium 1.7 L* (3.6-5.0) mmol/L Chloride 62.3 L 77.5 L (98-107) mmol/L Carbon Dioxide 42 H* (22-30) mmol/L BUN 4 L 5 L (7-17) mg/dL Creatinine 0.2 L (0.6-1.2) mg/dL Glucose 100 103 H (65-100) mg/dL Calcium 8.5 7.9 L (8.4-10.2) mg/dL Total Bilirubin 13.30 H (0.1-1.2) mg/dL AST 176 H (5-40) units/L ALT 50 (7-56) units/L Alkaline Phosphatase 192 H (35-129) units/L Total Protein 6.0 L (6.3-8.2) g/dL Albumin 3.0 L (3.9-5) g/dL 11/03/21 Range/Units 12:46 Sodium (137-145) mmol/L Potassium (3.6-5.0) mmol/L Chloride (98-107) mmol/L Carbon Dioxide (22-30) mmol/L BUN (7-17) mg/dL Creatinine (0.6-1.2) mg/dL Glucose (65-100) mg/dL Calcium (8.4-10.2) mg/dL Total Bilirubin 12.10 H (0.1-1.2) mg/dL AST 192 H (5-40) units/L ALT 51 (7-56) units/L Alkaline Phosphatase 150 H (35-129) units/L Total Protein 5.0 L (6.3-8.2) g/dL Albumin 2.6 L (3.9-5) g/dL - Imaging CT scan - abdomen: report reviewed, image reviewed CT scan - pelvis: report reviewed, image reviewed US - abdomen: report reviewed, image reviewed Assessment and Plan 51-year-old female with 1. Encephalopathy secondary to alcohol abuse 2. Alcohol induced acute liver injury 3. Abnormal gallbladder on imaging All appropriate lab work and imaging reviewed. Severe hepatic steatosis, mild perihepatic ascites, chronic pancreatitis. Abnormal gallbladder findings likely secondary to acute hepatic dysfunction and unlikely acute cholecystitis. Plan: 1. Trend LFTs, Bili, electrolytes 2. replace lytes as needed 3. gentle IVF 4. monitor and treat for DTs. 5. Reg diet 6. GI on board 7. etoh cessation discussed with patient 8. No acute surgical intervention at this time. If patient starts to experience localized right upper quadrant pain, nausea/vomiting will consider additional imaging. Thank you for this consultation. Please call with any questions or concerns.
[2021-11-03 14:01] LABS: Hepatitis B Surface Antigen Non-Reactive (Negative); Hepatitis C Virus Antibody Non-Reactive (NonReactive)
[2021-11-03] MEDS ORDERED: POTASSIUM CHLORIDE 20 MEQ PACKET PO ONE (14:10)
[2021-11-03 14:11] LABS: BUN/Creatinine Ratio 25
[2021-11-03] MEDS: CEFEPIME/NS 2 GM/100 ML 2 GM/100 ML BAG IV SCH ×2 (14:59→23:34)
--- NOTE | 2021-11-03 15:43 | Gastroenterology Consultation ---
History of Present Illness - Reason for Consult Consult date: 11/03/21 elevated LFTs Requesting physician: ANDREIA STORY - History of Present Illness This is a 51-year-old female with history of alcohol abuse presented to the hospital for altered mental status. GI consulted for elevated LFTs. Patient unable to give much history. Family by bedside patient noted to have decreased appetite and nausea vomiting for the past few days. Patient has daily alcohol use with last drink the day before coming to the hospital. Patient reports chronic diffuse abdominal pain. Patient does not follow-up with any doctors regularly. No prior records available. Medication list reviewed. Past History Past Medical History: anemia, other (Neuropathy, hypokalemia) Past Surgical History: No surgical history Social history: smoking (Current daily smoker), alcohol abuse Family history: no significant family history Medications and Allergies Allergies Allergy/AdvReac Type Severity Reaction Status Date / Time No Known Allergies Allergy Verified 11/03/21 07:57 Home Medications Medication Instructions Recorded Confirmed Last Taken Type Acetaminophen/Diphenhydramine 2 tab PO HS 12/15/20 12/15/20 12/08/20 History [Tylenol Pm Ex-Strength Caplet] Aspirin/Caffeine [Bc Pain Relief 1 - 2 each PO QDAY 12/15/20 12/15/20 12/08/20 History Powder Packet] [place] Sonido Foot Cream 1 cream TP QDAY 12/15/20 12/15/20 12/08/20 History Two Old Goats Cream 1 cream TP BID 12/15/20 12/15/20 12/08/20 History isopropyl alcohoL [Rubbing Alcohol] 5 ml TP QDAY 12/15/20 12/15/20 12/08/20 History witch Julita [Witch Julita] 5 ml TP QDAY 12/15/20 12/15/20 12/08/20 History Gabapentin 800 mg PO TID #90 capsule 12/18/20 Unknown Rx labetaloL [Labetalol 200mg TAB] 200 mg PO BID #60 tablet 12/18/20 Unknown Rx oxyCODONE /ACETAMINOPHEN [Percocet 1 tab PO Q4HR #10 tab 12/18/20 Unknown Rx 5/325] Active Meds: Active Medications Heparin Sodium (Porcine) (Heparin 5,000 Unit/1 Ml Vial) 5,000 unit SUB-Q Q8HR JANICE Last Admin: 11/03/21 14:59 Dose: 5,000 unit Sodium Chloride (Nacl 0.9% 1000 Ml) 1,000 mls @ 75 mls/hr IV DIRECT JANICE Last Admin: 11/03/21 06:30 Dose: 75 mls/hr Cefepime HCl (Cefepime/Ns 2 Gm/100 Ml) 2 gm in 100 mls @ 200 mls/hr IV Q8H JANICE; Protocol Last Admin: 11/03/21 14:59 Dose: 200 mls/hr Potassium Chloride (Kcl 10meq/100ml) 10 meq in 100 mls @ 100 mls/hr IV Q1H JANICE Stop: 11/03/21 18:59 Last Admin: 11/03/21 14:59 Dose: 100 mls/hr Ibuprofen (Ibuprofen 600 Mg Tab) 600 mg PO Q6H PRN PRN Reason: Pain, Mild (1-3) Lorazepam (Lorazepam 2 Mg/Ml Vial) 2 mg IV Q1H PRN PRN Reason: CIWA-Ar 8-15 Lorazepam (Lorazepam 2 Mg/Ml Vial) 4 mg IV Q1H PRN PRN Reason: CIWA-Ar 16-25 Lorazepam (Lorazepam 2 Mg/Ml Vial) 4 mg IV Q15MIN PRN PRN Reason: CIWA-Ar >25 Morphine Sulfate (Morphine 2 Mg/1 Ml Inj) 2 mg IV Q4H PRN PRN Reason: Pain, Moderate (4-6) Morphine Sulfate (Morphine 4 Mg/1 Ml Inj) 4 mg IV Q4H PRN PRN Reason: Pain , Severe (7-10) Sodium Chloride (Sodium Chloride 0.9% 10 Ml Flush Syringe) 10 ml IV BID [facility] Last Admin: 11/03/21 09:24 Dose: 10 ml Sodium Chloride (Sodium Chloride 0.9% 10 Ml Flush Syringe) 10 ml IV PRN PRN PRN Reason: LINE FLUSH Review of Systems - Review of Systems ROS unobtainable: due to mental status Exam - Constitutional Vital Signs: Temp Pulse Resp BP Pulse Ox 98.8 F 97 H 22 113/59 96 11/03/21 09:37 11/03/21 09:31 11/03/21 09:31 11/03/21 09:31 11/03/21 09:31 General appearance: no acute distress - Neck Neck: supple - Respiratory Respiratory effort: normal - Cardiovascular Rhythm: regular Heart Sounds: Present: S1 & S2 - Gastrointestinal General gastrointestinal: Present: soft, non-tender, non-distended - Integumentary Integumentary: Present: clear, warm - Neurologic Neurological: disoriented - Labs CBC & Chem 7: 11/02/21 19:02 11/03/21 12:46 Lab Results: Laboratory Results - last 24 hr 11/02/21 11/02/21 11/02/21 18:48 19:02 19:02 WBC 15.6 H RBC 4.02 Hgb 12.1 Hct 37.0 MCV 92 MCH 30 MCHC 33 RDW 28.9 H Plt Count 180 Add Manual Diff Complete Total Counted 100 Seg Neuts % (Manual) 87.0 H Band Neutrophils % 0 Lymphocytes % (Manual) 5.0 L Reactive Lymphs % (Man) 0 Monocytes % (Manual) 8.0 H Eosinophils % (Manual) 0 Basophils % (Manual) 0 Metamyelocytes % 0 Myelocytes % 0 Promyelocytes % 0 Blast Cells % 0 Nucleated RBC % Not Reportable Seg Neutrophils # Man 13.6 H Band Neutrophils # 0.0 Lymphocytes # (Manual) 0.8 L Abs React Lymphs (Man) 0.0 Monocytes # (Manual) 1.2 H Eosinophils # (Manual) 0.0 Basophils # (Manual) 0.0 Metamyelocytes # 0.0 Myelocytes # 0.0 Promyelocytes # 0.0 Blast Cells # 0.0 WBC Morphology Not Reportable Hypersegmented Neuts Not Reportable Hyposegmented Neuts Not Reportable Hypogranular Neuts Not Reportable Smudge Cells Not Reportable Toxic Granulation Not Reportable Toxic Vacuolation Not Reportable Dohle Bodies Not Reportable Pelger-Huet Anomaly Not Reportable Sarah Rods Not Reportable Platelet Estimate Consistent w auto Clumped Platelets Not Reportable Plt Clumps, EDTA Not Reportable Large Platelets Not Reportable Giant Platelets Not Reportable Platelet Satelliting Not Reportable Plt Morphology Comment Not Reportable RBC Morphology Not Reportable Dimorphic RBCs Yes Polychromasia Not Reportable Hypochromasia Not Reportable Poikilocytosis Not Reportable Anisocytosis 3+ Microcytosis Not Reportable Macrocytosis Not Reportable Spherocytes Not Reportable Pappenheimer Bodies Not Reportable Sickle Cells Not Reportable Target Cells 2+ Tear Drop Cells Not Reportable Ovalocytes Not Reportable Stomatocytes 2+ Helmet Cells Not Reportable Z[place] Bodies Not Reportable [place] Rings Not Reportable Sharifa Cells Not Reportable Bite Cells Not Reportable Crenated Cell Not Reportable Elliptocytes Not Reportable Acanthocytes (Spur) Not Reportable Rouleaux Not Reportable Hemoglobin C Crystals Not Reportable Schistocytes Not Reportable Malaria parasites Not Reportable [place] Bodies Not Reportable Hem Pathologist Commnt No PT INR ABG pH ABG pCO2 ABG pO2 ABG HCO3 ABG O2 Saturation ABG O2 Content ABG Base Excess ABG Hemoglobin ABG Carboxyhemoglobin ABG Methemoglobin Oxyhemoglobin FiO2 Sodium 125 L Potassium 1.7 L* Chloride 62.3 L Carbon Dioxide 42 H* Anion Gap 22 BUN 4 L Creatinine 0.2 L Estimated GFR > 60 BUN/Creatinine Ratio 20 Glucose 100 POC Glucose 136 H Lactic Acid Calcium 8.5 Magnesium Total Bilirubin Direct Bilirubin Indirect Bilirubin AST ALT Alkaline Phosphatase Ammonia Total Creatine Kinase Troponin T Total Protein Albumin Albumin/Globulin Ratio Lipase TSH Free T4 Plasma/Serum Alcohol Hepatitis A IgM Ab Hep Bs Antigen Hep B Core IgM Ab Hepatitis C Antibody 11/02/21 11/02/21 11/02/21 20:02 20:05 20:05 WBC RBC Hgb Hct MCV MCH MCHC RDW Plt Count Add Manual Diff Total Counted Seg Neuts % (Manual) Band Neutrophils % Lymphocytes % (Manual) Reactive Lymphs % (Man) Monocytes % (Manual) Eosinophils % (Manual) Basophils % (Manual) Metamyelocytes % Myelocytes % Promyelocytes % Blast Cells % Nucleated RBC % Seg Neutrophils # Man Band Neutrophils # Lymphocytes # (Manual) Abs React Lymphs (Man) Monocytes # (Manual) Eosinophils # (Manual) Basophils # (Manual) Metamyelocytes # Myelocytes # Promyelocytes # Blast Cells # WBC Morphology Hypersegmented Neuts Hyposegmented Neuts Hypogranular Neuts Smudge Cells Toxic Granulation Toxic Vacuolation Dohle Bodies Pelger-Huet Anomaly Sarah Rods Platelet Estimate Clumped Platelets Plt Clumps, EDTA Large Platelets Giant Platelets Platelet Satelliting Plt Morphology Comment RBC Morphology Dimorphic RBCs Polychromasia Hypochromasia Poikilocytosis Anisocytosis Microcytosis Macrocytosis Spherocytes Pappenheimer Bodies Sickle Cells Target Cells Tear Drop Cells Ovalocytes Stomatocytes Helmet Cells Zarate-[place] Bodies Flushing Rings [place] Cells Bite Cells Crenated Cell Elliptocytes Acanthocytes (Spur) Rouleaux Hemoglobin C Crystals Schistocytes Malaria parasites [place] Bodies Hem Pathologist Commnt PT INR ABG pH ABG pCO2 ABG pO2 ABG HCO3 ABG O2 Saturation ABG O2 Content ABG Base Excess ABG Hemoglobin ABG Carboxyhemoglobin ABG Methemoglobin Oxyhemoglobin FiO2 Sodium Potassium Chloride Carbon Dioxide Anion Gap BUN Creatinine Estimated GFR BUN/Creatinine Ratio Glucose POC Glucose 133 H Lactic Acid 7.60 H* Calcium Magnesium Total Bilirubin Direct Bilirubin Indirect Bilirubin AST ALT Alkaline Phosphatase Ammonia 145.0 H Total Creatine Kinase Troponin T Total Protein Albumin Albumin/Globulin Ratio Lipase TSH Free T4 Plasma/Serum Alcohol Hepatitis A IgM Ab Hep Bs Antigen Hep B Core IgM Ab Hepatitis C Antibody 11/02/21 11/02/21 11/02/21 20:05 20:05 20:05 WBC RBC Hgb Hct MCV MCH MCHC RDW Plt Count Add Manual Diff Total Counted Seg Neuts % (Manual) Band Neutrophils % Lymphocytes % (Manual) Reactive Lymphs % (Man) Monocytes % (Manual) Eosinophils % (Manual) Basophils % (Manual) Metamyelocytes % Myelocytes % Promyelocytes % Blast Cells % Nucleated RBC % Seg Neutrophils # Man Band Neutrophils # Lymphocytes # (Manual) Abs React Lymphs (Man) Monocytes # (Manual) Eosinophils # (Manual) Basophils # (Manual) Metamyelocytes # Myelocytes # Promyelocytes # Blast Cells # WBC Morphology Hypersegmented Neuts Hyposegmented Neuts Hypogranular Neuts Smudge Cells Toxic Granulation Toxic Vacuolation Dohle Bodies Pelger-Huet Anomaly Sarah Rods Platelet Estimate Clumped Platelets Plt Clumps, EDTA Large Platelets Giant Platelets Platelet Satelliting Plt Morphology Comment RBC Morphology Dimorphic RBCs Polychromasia Hypochromasia Poikilocytosis Anisocytosis Microcytosis Macrocytosis Spherocytes Pappenheimer Bodies Sickle Cells Target Cells Tear Drop Cells Ovalocytes Stomatocytes Helmet Cells Zarate-[place] Bodies Flushing Rings Sharifa Cells Bite Cells Crenated Cell Elliptocytes Acanthocytes (Spur) Rouleaux Hemoglobin C Crystals Schistocytes Malaria parasites [place] Bodies Hem Pathologist Commnt PT INR ABG pH ABG pCO2 ABG pO2 ABG HCO3 ABG O2 Saturation ABG O2 Content ABG Base Excess ABG Hemoglobin ABG Carboxyhemoglobin ABG Methemoglobin Oxyhemoglobin FiO2 Sodium Potassium Chloride Carbon Dioxide Anion Gap BUN Creatinine Estimated GFR BUN/Creatinine Ratio Glucose POC Glucose Lactic Acid Calcium Magnesium Total Bilirubin Direct Bilirubin Indirect Bilirubin AST ALT Alkaline Phosphatase Ammonia Total Creatine Kinase 134 Troponin T < 0.010 Total Protein Albumin Albumin/Globulin Ratio Lipase TSH 0.744 Free T4 Plasma/Serum Alcohol < 0.01 Hepatitis A IgM Ab Hep Bs Antigen Hep B Core IgM Ab Hepatitis C Antibody 11/02/21 11/02/21 11/02/21 20:05 20:05 20:05 WBC RBC Hgb Hct MCV MCH MCHC RDW Plt Count Add Manual Diff Total Counted Seg Neuts % (Manual) Band Neutrophils % Lymphocytes % (Manual) Reactive Lymphs % (Man) Monocytes % (Manual) Eosinophils % (Manual) Basophils % (Manual) Metamyelocytes % Myelocytes % Promyelocytes % Blast Cells % Nucleated RBC % Seg Neutrophils # Man Band Neutrophils # Lymphocytes # (Manual) Abs React Lymphs (Man) Monocytes # (Manual) Eosinophils # (Manual) Basophils # (Manual) Metamyelocytes # Myelocytes # Promyelocytes # Blast Cells # WBC Morphology Hypersegmented Neuts Hyposegmented Neuts Hypogranular Neuts Smudge Cells Toxic Granulation Toxic Vacuolation Dohle Bodies Pelger-Huet Anomaly Sarah Rods Platelet Estimate Clumped Platelets Plt Clumps, EDTA Large Platelets Giant Platelets Platelet Satelliting Plt Morphology Comment RBC Morphology Dimorphic RBCs Polychromasia Hypochromasia Poikilocytosis Anisocytosis Microcytosis Macrocytosis Spherocytes Pappenheimer Bodies Sickle Cells Target Cells Tear Drop Cells Ovalocytes Stomatocytes Helmet Cells Zarate-[place] Bodies Flushing Rings Sharifa Cells Bite Cells Crenated Cell Elliptocytes Acanthocytes (Spur) Rouleaux Hemoglobin C Crystals Schistocytes Malaria parasites [place] Bodies Hem Pathologist Commnt PT INR ABG pH ABG pCO2 ABG pO2 ABG HCO3 ABG O2 Saturation ABG O2 Content ABG Base Excess ABG Hemoglobin ABG Carboxyhemoglobin ABG Methemoglobin Oxyhemoglobin FiO2 Sodium Potassium Chloride Carbon Dioxide Anion Gap BUN Creatinine Estimated GFR BUN/Creatinine Ratio Glucose POC Glucose Lactic Acid Calcium Magnesium 1.60 L Total Bilirubin 13.30 H Direct Bilirubin 8.8 H Indirect Bilirubin 4.5 AST 176 H ALT 50 Alkaline Phosphatase 192 H Ammonia Total Creatine Kinase Troponin T Total Protein 6.0 L Albumin 3.0 L Albumin/Globulin Ratio 1.0 Lipase 17 TSH Free T4 Plasma/Serum Alcohol Hepatitis A IgM Ab Hep Bs Antigen Hep B Core IgM Ab Hepatitis C Antibody 11/02/21 11/02/21 11/03/21 21:08 21:48 04:23 WBC RBC Hgb Hct MCV MCH MCHC RDW Plt Count Add Manual Diff Total Counted Seg Neuts % (Manual) Band Neutrophils % Lymphocytes % (Manual) Reactive Lymphs % (Man) Monocytes % (Manual) Eosinophils % (Manual) Basophils % (Manual) Metamyelocytes % Myelocytes % Promyelocytes % Blast Cells % Nucleated RBC % Seg Neutrophils # Man Band Neutrophils # Lymphocytes # (Manual) Abs React Lymphs (Man) Monocytes # (Manual) Eosinophils # (Manual) Basophils # (Manual) Metamyelocytes # Myelocytes # Promyelocytes # Blast Cells # WBC Morphology Hypersegmented Neuts Hyposegmented Neuts Hypogranular Neuts Smudge Cells Toxic Granulation Toxic Vacuolation Dohle Bodies Pelger-Huet Anomaly Sarah Rods Platelet Estimate Clumped Platelets Plt Clumps, EDTA Large Platelets Giant Platelets Platelet Satelliting Plt Morphology Comment RBC Morphology Dimorphic RBCs Polychromasia Hypochromasia Poikilocytosis Anisocytosis Microcytosis Macrocytosis Spherocytes Pappenheimer Bodies Sickle Cells Target Cells Tear Drop Cells Ovalocytes Stomatocytes Helmet Cells Zarate-[place] Bodies Flushing Rings [place] Cells Bite Cells Crenated Cell Elliptocytes Acanthocytes (Spur) Rouleaux Hemoglobin C Crystals Schistocytes Malaria parasites Amador Bodies Hem Pathologist Commnt PT INR ABG pH 7.545 H ABG pCO2 54.3 ABG pO2 88.2 ABG HCO3 45.9 H ABG O2 Saturation 97.3 ABG O2 Content 14.2 ABG Base Excess 20.7 H ABG Hemoglobin 10.8 L ABG Carboxyhemoglobin 3.5 ABG Methemoglobin 0.7 Oxyhemoglobin 93.1 L FiO2 32 Sodium Potassium Chloride Carbon Dioxide Anion Gap BUN Creatinine Estimated GFR BUN/Creatinine Ratio Glucose POC Glucose Lactic Acid 6.80 H* 4.30 H* Calcium Magnesium Total Bilirubin Direct Bilirubin Indirect Bilirubin AST ALT Alkaline Phosphatase Ammonia Total Creatine Kinase Troponin T Total Protein Albumin Albumin/Globulin Ratio Lipase TSH Free T4 Plasma/Serum Alcohol Hepatitis A IgM Ab Hep Bs Antigen Hep B Core IgM Ab Hepatitis C Antibody 11/03/21 11/03/21 11/03/21 12:46 12:46 12:46 WBC RBC Hgb Hct MCV MCH MCHC RDW Plt Count Add Manual Diff Total Counted Seg Neuts % (Manual) Band Neutrophils % Lymphocytes % (Manual) Reactive Lymphs % (Man) Monocytes % (Manual) Eosinophils % (Manual) Basophils % (Manual) Metamyelocytes % Myelocytes % Promyelocytes % Blast Cells % Nucleated RBC % Seg Neutrophils # Man Band Neutrophils # Lymphocytes # (Manual) Abs React Lymphs (Man) Monocytes # (Manual) Eosinophils # (Manual) Basophils # (Manual) Metamyelocytes # Myelocytes # Promyelocytes # Blast Cells # WBC Morphology Hypersegmented Neuts Hyposegmented Neuts Hypogranular Neuts Smudge Cells Toxic Granulation Toxic Vacuolation Dohle Bodies Pelger-Huet Anomaly Sarah Rods Platelet Estimate Clumped Platelets Plt Clumps, EDTA Large Platelets Giant Platelets Platelet Satelliting Plt Morphology Comment RBC Morphology Dimorphic RBCs Polychromasia Hypochromasia Poikilocytosis Anisocytosis Microcytosis Macrocytosis Spherocytes Pappenheimer Bodies Sickle Cells Target Cells Tear Drop Cells Ovalocytes Stomatocytes Helmet Cells Zarate-[place] Bodies Flushing Rings Sharifa Cells Bite Cells Crenated Cell Elliptocytes Acanthocytes (Spur) Rouleaux Hemoglobin C Crystals Schistocytes Malaria parasites [place] Bodies Hem Pathologist Commnt PT 26.4 H INR 2.06 H ABG pH ABG pCO2 ABG pO2 ABG HCO3 ABG O2 Saturation ABG O2 Content ABG Base Excess ABG Hemoglobin ABG Carboxyhemoglobin ABG Methemoglobin Oxyhemoglobin FiO2 Sodium 132 L D Potassium 2.1 L* D Chloride 77.5 L Carbon Dioxide 38 H Anion Gap 19 BUN 5 L Creatinine < 0.2 L Estimated GFR > 60 BUN/Creatinine Ratio 25 Glucose 103 H POC Glucose Lactic Acid 6.00 H* Calcium 7.9 L Magnesium 2.10 Total Bilirubin Direct Bilirubin Indirect Bilirubin AST ALT Alkaline Phosphatase Ammonia Total Creatine Kinase Troponin T Total Protein Albumin Albumin/Globulin Ratio Lipase TSH Free T4 Plasma/Serum Alcohol Hepatitis A IgM Ab Hep Bs Antigen Hep B Core IgM Ab Hepatitis C Antibody 11/03/21 11/03/21 11/03/21 12:46 12:46 12:46 WBC RBC Hgb Hct MCV MCH MCHC RDW Plt Count Add Manual Diff Total Counted Seg Neuts % (Manual) Band Neutrophils % Lymphocytes % (Manual) Reactive Lymphs % (Man) Monocytes % (Manual) Eosinophils % (Manual) Basophils % (Manual) Metamyelocytes % Myelocytes % Promyelocytes % Blast Cells % Nucleated RBC % Seg Neutrophils # Man Band Neutrophils # Lymphocytes # (Manual) Abs React Lymphs (Man) Monocytes # (Manual) Eosinophils # (Manual) Basophils # (Manual) Metamyelocytes # Myelocytes # Promyelocytes # Blast Cells # WBC Morphology Hypersegmented Neuts Hyposegmented Neuts Hypogranular Neuts Smudge Cells Toxic Granulation Toxic Vacuolation Dohle Bodies Pelger-Huet Anomaly Sarah Rods Platelet Estimate Clumped Platelets Plt Clumps, EDTA Large Platelets Giant Platelets Platelet Satelliting Plt Morphology Comment RBC Morphology Dimorphic RBCs Polychromasia Hypochromasia Poikilocytosis Anisocytosis Microcytosis Macrocytosis Spherocytes Pappenheimer Bodies Sickle Cells Target Cells Tear Drop Cells Ovalocytes Stomatocytes Helmet Cells Zarate-[place] Bodies Flushing Rings Sharifa Cells Bite Cells Crenated Cell Elliptocytes Acanthocytes (Spur) Rouleaux Hemoglobin C Crystals Schistocytes Malaria parasites [place] Bodies Hem Pathologist Commnt PT INR ABG pH ABG pCO2 ABG pO2 ABG HCO3 ABG O2 Saturation ABG O2 Content ABG Base Excess ABG Hemoglobin ABG Carboxyhemoglobin ABG Methemoglobin Oxyhemoglobin FiO2 Sodium Potassium Chloride Carbon Dioxide Anion Gap BUN Creatinine Estimated GFR BUN/Creatinine Ratio Glucose POC Glucose Lactic Acid Calcium Magnesium Total Bilirubin Direct Bilirubin Indirect Bilirubin AST ALT Alkaline Phosphatase Ammonia Total Creatine Kinase Troponin T Total Protein Albumin Albumin/Globulin Ratio Lipase TSH 0.574 Free T4 1.56 H Plasma/Serum Alcohol Hepatitis A IgM Ab Non-reactive Hep Bs Antigen Non-reactive Hep B Core IgM Ab Non-reactive Hepatitis C Antibody Non-reactive 11/03/21 12:46 WBC RBC Hgb Hct MCV MCH MCHC RDW Plt Count Add Manual Diff Total Counted Seg Neuts % (Manual) Band Neutrophils % Lymphocytes % (Manual) Reactive Lymphs % (Man) Monocytes % (Manual) Eosinophils % (Manual) Basophils % (Manual) Metamyelocytes % Myelocytes % Promyelocytes % Blast Cells % Nucleated RBC % Seg Neutrophils # Man Band Neutrophils # Lymphocytes # (Manual) Abs React Lymphs (Man) Monocytes # (Manual) Eosinophils # (Manual) Basophils # (Manual) Metamyelocytes # Myelocytes # Promyelocytes # Blast Cells # WBC Morphology Hypersegmented Neuts Hyposegmented Neuts Hypogranular Neuts Smudge Cells Toxic Granulation Toxic Vacuolation Dohle Bodies Pelger-Huet Anomaly Sarah Rods Platelet Estimate Clumped Platelets Plt Clumps, EDTA Large Platelets Giant Platelets Platelet Satelliting Plt Morphology Comment RBC Morphology Dimorphic RBCs Polychromasia Hypochromasia Poikilocytosis Anisocytosis Microcytosis Macrocytosis Spherocytes Pappenheimer Bodies Sickle Cells Target Cells Tear Drop Cells Ovalocytes Stomatocytes Helmet Cells Zarate-[place] Bodies Flushing Rings Sharifa Cells Bite Cells Crenated Cell Elliptocytes Acanthocytes (Spur) Rouleaux Hemoglobin C Crystals Schistocytes Malaria parasites [place] Bodies Hem Pathologist Commnt PT INR ABG pH ABG pCO2 ABG pO2 ABG HCO3 ABG O2 Saturation ABG O2 Content ABG Base Excess ABG Hemoglobin ABG Carboxyhemoglobin ABG Methemoglobin Oxyhemoglobin FiO2 Sodium Potassium Chloride Carbon Dioxide Anion Gap BUN Creatinine Estimated GFR BUN/Creatinine Ratio Glucose POC Glucose Lactic Acid Calcium Magnesium Total Bilirubin 12.10 H Direct Bilirubin 7.9 H Indirect Bilirubin 4.2 AST 192 H ALT 51 Alkaline Phosphatase 150 H Ammonia Total Creatine Kinase Troponin T Total Protein 5.0 L Albumin 2.6 L Albumin/Globulin Ratio 1.1 Lipase TSH Free T4 Plasma/Serum Alcohol Hepatitis A IgM Ab Hep Bs Antigen Hep B Core IgM Ab Hepatitis C Antibody - Imaging CT Scan: report reviewed Assessment and Plan 51 yo female with alcohol abuse and likely chronic pancreatitis presenting with AMS and metabolic encephalopathy and electrolyte derangement. # Elevated LFTs - likely 2/2 alcoholic hepatitis. - maddrey score of 64, poor prognosis. - CT of the abdomen and pelvis reveals: 1. Marked heterogeneous hypoattenuation throughout the liver which may represent severe hepatic steatosis with areas of focal fatty sparing. Severe hepatitis could have a similar appearance. - Abdominal ultrasound reveals: 1. Cholelithiasis and gallbladder sludge with minimal gallbladder wall thickening and trace pericholecystic fluid. Findings are nonspecific and may be secondary to intrinsic hepatocellular disease versus mild changes of cholecystitis. - lipase normal. - acute viral hep panel negative. rec - supportive care - monitor LFTs and INR - avoid alcohol. - correct electrolytes derangement. - ordered additional liver serology. - will follow.
[2021-11-03] MEDS: VANCOMYCIN 1,250 MG in SODIUM CHLORIDE 0.9% 250ML 250 ML IV SCH (17:21)
[2021-11-03 20:12] LABS: Bilirubin,Urine MOD (Negative); Blood,Urine NEG (Negative); Color,Urine Amber (Yellow); Protein,Urine <15 mg/dL mg/dL (Negative)
[2021-11-03 20:23] LABS: Bacteria,Urine 1+ /HPF (Negative)
[2021-11-03 20:28] LABS: Ictotest,Urine Positive (Negative)
[2021-11-03] MEDS: MORPHINE 2 MG/1 ML INJ IV PRN (23:37)
[2021-11-04] MEDS ORDERED: ONDANSETRON 4 MG/2 ML INJ IV PRN (03:14)
[2021-11-04 05:06] LABS: Hematocrit 26.8 % (30.3-42.9); Hemoglobin 8.9 gm/dl (10.1-14.3); Mean Corpuscular HGB Conc 33 % (30-34); Mean Corpuscular Volume 93 fl (79-97); Platelet Count 154 K/mm3 (140-440); Red Blood Count 2.87 M/mm3 (3.65-5.03)
[2021-11-04 05:20] LABS: Alanine Aminotransferase 51 units/L (7-56); Albumin 2.6 g/dL (3.9-5); Blood Urea Nitrogen 8 mg/dL (7-17); Calcium 7.8 mg/dL (8.4-10.2); Hemolysis Index 0
[2021-11-04 05:24] LABS: BUN/Creatinine Ratio 20; Red Cell Distribution Width 29.8 % (13.2-15.2)
[2021-11-04] MEDS: VANCOMYCIN 1,250 MG in SODIUM CHLORIDE 0.9% 250ML 250 ML IV SCH ×2 (05:35→16:13)
[2021-11-04] MEDS: MORPHINE 2 MG/1 ML INJ IV PRN (05:35)
[2021-11-04] MEDS: HEPARIN 5,000 UNIT/1 ML VIAL SUB-Q SCH ×3 (05:35→21:14)
[2021-11-04] MEDS ORDERED: POTASSIUM PHOSPHATE 45 MMOL in SODIUM CHLORIDE 0.9% 500 ML 500 ML IV ONE (06:00)
[2021-11-04 06:02] LABS: Anisocytosis 3+; Basophils % (Manual) 0 % (0.0-1.8); Total Cells Counted 100
[2021-11-04 06:03] LABS: Platelet Estimate Consistent w Auto; Stomatocytes 1+; Target Cells 1+
[2021-11-04] MEDS ORDERED: THIAMINE 100 MG, FOLIC ACID 1 MG, MULTIPLE VITAMIN INJ, ADULT 10 ML in SODIUM CHLORIDE ... IV ONE (08:30)
[2021-11-04] MEDS ORDERED: POTASSIUM PHOSPHATE 40 MMOL in SODIUM CHLORIDE 0.9% 500 ML 500 ML IV ONE (08:30)
--- NOTE | 2021-11-04 09:30 | Gastroenterology Progress Note ---
Assessment and Plan 1. Elevated LFTs - likely 2/2 alcoholic hepatitis - maddrey score of 64, poor prognosis - CT of the abdomen and pelvis reveals: 1. Marked heterogeneous hypoattenuation throughout the liver which may represent severe hepatic steatosis with areas of focal fatty sparing. Severe hepatitis could have a similar appearance - Abdominal ultrasound reveals: 1. Cholelithiasis and gallbladder sludge with minimal gallbladder wall thickening and trace pericholecystic fluid. Findings are nonspecific and may be secondary to intrinsic hepatocellular disease versus mild changes of cholecystitis - lipase normal - acute viral hep panel negative - additional liver serology pending - AST/ALT relatively unchanged since yesterday, continue to trend - avoid alcohol - supportive care - electrolyte management per primary Subjective Date of service: 11/04/21 Interval history: Pt seen and examined. Sitting comfortably in bed. States that she is doing okay. Reports tolerating PO intake w/o vomiting. Endorses mild nausea and mild periumbilical pain. Objective - Constitutional Vitals: Temp Pulse Resp BP Pulse Ox 98.8 F 93 H 15 106/62 97 11/04/21 03:27 11/04/21 06:19 11/04/21 06:19 11/04/21 06:01 11/04/21 06:19 General appearance: no acute distress - EENT ENT: hearing intact - Gastrointestinal General gastrointestinal: Present: soft, non-tender - Labs CBC & Chem 7: 11/04/21 04:41 11/04/21 04:41 Labs: Laboratory Results - last 24 hr 11/03/21 11/03/21 11/03/21 12:46 12:46 12:46 WBC RBC Hgb Hct MCV MCH MCHC RDW Plt Count Add Manual Diff Total Counted Seg Neuts % (Manual) Band Neutrophils % Lymphocytes % (Manual) Reactive Lymphs % (Man) Monocytes % (Manual) Eosinophils % (Manual) Basophils % (Manual) Metamyelocytes % Myelocytes % Promyelocytes % Blast Cells % Nucleated RBC % Seg Neutrophils # Man Band Neutrophils # Lymphocytes # (Manual) Abs React Lymphs (Man) Monocytes # (Manual) Eosinophils # (Manual) Basophils # (Manual) Metamyelocytes # Myelocytes # Promyelocytes # Blast Cells # WBC Morphology Hypersegmented Neuts Hyposegmented Neuts Hypogranular Neuts Smudge Cells Toxic Granulation Toxic Vacuolation Dohle Bodies Pelger-Huet Anomaly Sarah Rods Platelet Estimate Clumped Platelets Plt Clumps, EDTA Large Platelets Giant Platelets Platelet Satelliting Plt Morphology Comment RBC Morphology Dimorphic RBCs Polychromasia Hypochromasia Poikilocytosis Anisocytosis Microcytosis Macrocytosis Spherocytes Pappenheimer Bodies Sickle Cells Target Cells Tear Drop Cells Ovalocytes Stomatocytes Helmet Cells Zarate-[place] Bodies [place] Rings Sharifa Cells Bite Cells Crenated Cell Elliptocytes Acanthocytes (Spur) Rouleaux Hemoglobin C Crystals Schistocytes Malaria parasites Amador Bodies Hem Pathologist Commnt PT 26.4 H INR 2.06 H Heparin Anti-Xa Level Sodium 132 L D Potassium 2.1 L* D Chloride 77.5 L Carbon Dioxide 38 H Anion Gap 19 BUN 5 L Creatinine < 0.2 L Estimated GFR > 60 BUN/Creatinine Ratio 25 Glucose 103 H Lactic Acid 6.00 H* Calcium 7.9 L Phosphorus Magnesium 2.10 Total Bilirubin Direct Bilirubin Indirect Bilirubin AST ALT Alkaline Phosphatase Total Protein Albumin Albumin/Globulin Ratio TSH Free T4 Urine Color Urine Turbidity Urine pH Ur Specific [place] Urine Protein Urine Glucose (UA) Urine Ketones Urine Blood Urine Nitrite Urine Bilirubin Urine Ictotest Urine Urobilinogen Ur Leukocyte Esterase Urine WBC (Auto) Urine RBC (Auto) Urine Bacteria (Auto) Hepatitis A IgM Ab Hep Bs Antigen Hep B Core IgM Ab Hepatitis C Antibody 11/03/21 11/03/21 11/03/21 12:46 12:46 12:46 WBC RBC Hgb Hct MCV MCH MCHC RDW Plt Count Add Manual Diff Total Counted Seg Neuts % (Manual) Band Neutrophils % Lymphocytes % (Manual) Reactive Lymphs % (Man) Monocytes % (Manual) Eosinophils % (Manual) Basophils % (Manual) Metamyelocytes % Myelocytes % Promyelocytes % Blast Cells % Nucleated RBC % Seg Neutrophils # Man Band Neutrophils # Lymphocytes # (Manual) Abs React Lymphs (Man) Monocytes # (Manual) Eosinophils # (Manual) Basophils # (Manual) Metamyelocytes # Myelocytes # Promyelocytes # Blast Cells # WBC Morphology Hypersegmented Neuts Hyposegmented Neuts Hypogranular Neuts Smudge Cells Toxic Granulation Toxic Vacuolation Dohle Bodies Pelger-Huet Anomaly Sarah Rods Platelet Estimate Clumped Platelets Plt Clumps, EDTA Large Platelets Giant Platelets Platelet Satelliting Plt Morphology Comment RBC Morphology Dimorphic RBCs Polychromasia Hypochromasia Poikilocytosis Anisocytosis Microcytosis Macrocytosis Spherocytes Pappenheimer Bodies Sickle Cells Target Cells Tear Drop Cells Ovalocytes Stomatocytes Helmet Cells Zarate-[place] Bodies [place] Rings [place] Cells Bite Cells Crenated Cell Elliptocytes Acanthocytes (Spur) Rouleaux Hemoglobin C Crystals Schistocytes Malaria parasites [place] Bodies Hem Pathologist Commnt PT INR Heparin Anti-Xa Level Sodium Potassium Chloride Carbon Dioxide Anion Gap BUN Creatinine Estimated GFR BUN/Creatinine Ratio Glucose Lactic Acid Calcium Phosphorus Magnesium Total Bilirubin Direct Bilirubin Indirect Bilirubin AST ALT Alkaline Phosphatase Total Protein Albumin Albumin/Globulin Ratio TSH 0.574 Free T4 1.56 H Urine Color Urine Turbidity Urine pH Ur Specific [place] Urine Protein Urine Glucose (UA) Urine Ketones Urine Blood Urine Nitrite Urine Bilirubin Urine Ictotest Urine Urobilinogen Ur Leukocyte Esterase Urine WBC (Auto) Urine RBC (Auto) Urine Bacteria (Auto) Hepatitis A IgM Ab Non-reactive Hep Bs Antigen Non-reactive Hep B Core IgM Ab Non-reactive Hepatitis C Antibody Non-reactive 11/03/21 11/03/21 11/03/21 12:46 18:00 23:26 WBC RBC Hgb Hct MCV MCH MCHC RDW Plt Count Add Manual Diff Total Counted Seg Neuts % (Manual) Band Neutrophils % Lymphocytes % (Manual) Reactive Lymphs % (Man) Monocytes % (Manual) Eosinophils % (Manual) Basophils % (Manual) Metamyelocytes % Myelocytes % Promyelocytes % Blast Cells % Nucleated RBC % Seg Neutrophils # Man Band Neutrophils # Lymphocytes # (Manual) Abs React Lymphs (Man) Monocytes # (Manual) Eosinophils # (Manual) Basophils # (Manual) Metamyelocytes # Myelocytes # Promyelocytes # Blast Cells # WBC Morphology Hypersegmented Neuts Hyposegmented Neuts Hypogranular Neuts Smudge Cells Toxic Granulation Toxic Vacuolation Dohle Bodies Pelger-Huet Anomaly Sarah Rods Platelet Estimate Clumped Platelets Plt Clumps, EDTA Large Platelets Giant Platelets Platelet Satelliting Plt Morphology Comment RBC Morphology Dimorphic RBCs Polychromasia Hypochromasia Poikilocytosis Anisocytosis Microcytosis Macrocytosis Spherocytes Pappenheimer Bodies Sickle Cells Target Cells Tear Drop Cells Ovalocytes Stomatocytes Helmet Cells Zarate-[place] Bodies [place] Rings [place] Cells Bite Cells Crenated Cell Elliptocytes Acanthocytes (Spur) Rouleaux Hemoglobin C Crystals Schistocytes Malaria parasites [place] Bodies Hem Pathologist Commnt PT INR Heparin Anti-Xa Level Sodium Potassium Chloride Carbon Dioxide Anion Gap BUN Creatinine Estimated GFR BUN/Creatinine Ratio Glucose Lactic Acid Calcium Phosphorus 0.60 L* Magnesium Total Bilirubin 12.10 H Direct Bilirubin 7.9 H Indirect Bilirubin 4.2 AST 192 H ALT 51 Alkaline Phosphatase 150 H Total Protein 5.0 L Albumin 2.6 L Albumin/Globulin Ratio 1.1 TSH Free T4 Urine Color Lea Urine Turbidity Clear Urine pH 7.0 Ur Specific [place] 1.013 Urine Protein <15 mg/dl Urine Glucose (UA) Neg Urine Ketones Neg Urine Blood Neg Urine Nitrite Neg Urine Bilirubin Mod Urine Ictotest Positive Urine Urobilinogen 4.0 Ur Leukocyte Esterase Neg Urine WBC (Auto) 2.0 Urine RBC (Auto) 2.0 Urine Bacteria (Auto) 1+ Hepatitis A IgM Ab Hep Bs Antigen Hep B Core IgM Ab Hepatitis C Antibody 11/03/21 11/04/21 11/04/21 23:26 04:41 04:41 WBC 15.1 H RBC 2.87 L Hgb 8.9 L D Hct 26.8 L D MCV 93 MCH 31 MCHC 33 RDW 29.8 H Plt Count 154 Add Manual Diff Complete Total Counted 100 Seg Neuts % (Manual) 87.0 H Band Neutrophils % 0 Lymphocytes % (Manual) 8.0 L Reactive Lymphs % (Man) 0 Monocytes % (Manual) 4.0 Eosinophils % (Manual) 1.0 Basophils % (Manual) 0 Metamyelocytes % 0 Myelocytes % 0 Promyelocytes % 0 Blast Cells % 0 Nucleated RBC % Not Reportable Seg Neutrophils # Man 13.1 H Band Neutrophils # 0.0 Lymphocytes # (Manual) 1.2 Abs React Lymphs (Man) 0.0 Monocytes # (Manual) 0.6 Eosinophils # (Manual) 0.2 Basophils # (Manual) 0.0 Metamyelocytes # 0.0 Myelocytes # 0.0 Promyelocytes # 0.0 Blast Cells # 0.0 WBC Morphology Not Reportable Hypersegmented Neuts Not Reportable Hyposegmented Neuts Not Reportable Hypogranular Neuts Not Reportable Smudge Cells Not Reportable Toxic Granulation Not Reportable Toxic Vacuolation Not Reportable Dohle Bodies Not Reportable Pelger-Huet Anomaly Not Reportable Sarah Rods Not Reportable Platelet Estimate Consistent w auto Clumped Platelets Not Reportable Plt Clumps, EDTA Not Reportable Large Platelets Not Reportable Giant Platelets Not Reportable Platelet Satelliting Not Reportable Plt Morphology Comment Not Reportable RBC Morphology Not Reportable Dimorphic RBCs Not Reportable Polychromasia Not Reportable Hypochromasia Not Reportable Poikilocytosis Not Reportable Anisocytosis 3+ Microcytosis Not Reportable Macrocytosis Not Reportable Spherocytes Not Reportable Pappenheimer Bodies Not Reportable Sickle Cells Not Reportable Target Cells 1+ Tear Drop Cells Not Reportable Ovalocytes Not Reportable Stomatocytes 1+ Helmet Cells Not Reportable Zarate-[place] Bodies Not Reportable [place] Rings Not Reportable Sharifa Cells Not Reportable Bite Cells Not Reportable Crenated Cell Not Reportable Elliptocytes Not Reportable Acanthocytes (Spur) Not Reportable Rouleaux Not Reportable Hemoglobin C Crystals Not Reportable Schistocytes Not Reportable Malaria parasites Not Reportable [place] Bodies Not Reportable Hem Pathologist Commnt No PT INR Heparin Anti-Xa Level Sodium 134 L Potassium 2.0 L* Chloride 86.9 L Carbon Dioxide 39 H Anion Gap 10 BUN 8 Creatinine 0.4 L D Estimated GFR > 60 BUN/Creatinine Ratio 20 Glucose 109 H Lactic Acid 2.10 H* Calcium 7.8 L Phosphorus Magnesium Total Bilirubin 13.70 H Direct Bilirubin Indirect Bilirubin AST 182 H ALT 51 Alkaline Phosphatase 134 H Total Protein 4.6 L Albumin 2.6 L Albumin/Globulin Ratio 1.3 TSH Free T4 Urine Color Urine Turbidity Urine pH Ur Specific [place] Urine Protein Urine Glucose (UA) Urine Ketones Urine Blood Urine Nitrite Urine Bilirubin Urine Ictotest Urine Urobilinogen Ur Leukocyte Esterase Urine WBC (Auto) Urine RBC (Auto) Urine Bacteria (Auto) Hepatitis A IgM Ab Hep Bs Antigen Hep B Core IgM Ab Hepatitis C Antibody 11/04/21 11/04/21 04:41 04:41 WBC RBC Hgb Hct MCV MCH MCHC RDW Plt Count Add Manual Diff Total Counted Seg Neuts % (Manual) Band Neutrophils % Lymphocytes % (Manual) Reactive Lymphs % (Man) Monocytes % (Manual) Eosinophils % (Manual) Basophils % (Manual) Metamyelocytes % Myelocytes % Promyelocytes % Blast Cells % Nucleated RBC % Seg Neutrophils # Man Band Neutrophils # Lymphocytes # (Manual) Abs React Lymphs (Man) Monocytes # (Manual) Eosinophils # (Manual) Basophils # (Manual) Metamyelocytes # Myelocytes # Promyelocytes # Blast Cells # WBC Morphology Hypersegmented Neuts Hyposegmented Neuts Hypogranular Neuts Smudge Cells Toxic Granulation Toxic Vacuolation Dohle Bodies Pelger-Huet Anomaly Sarah Rods Platelet Estimate Clumped Platelets Plt Clumps, EDTA Large Platelets Giant Platelets Platelet Satelliting Plt Morphology Comment RBC Morphology Dimorphic RBCs Polychromasia Hypochromasia Poikilocytosis Anisocytosis Microcytosis Macrocytosis Spherocytes Pappenheimer Bodies Sickle Cells Target Cells Tear Drop Cells Ovalocytes Stomatocytes Helmet Cells Zarate-[place] Bodies [place] Rings Sharifa Cells Bite Cells Crenated Cell Elliptocytes Acanthocytes (Spur) Rouleaux Hemoglobin C Crystals Schistocytes Malaria parasites Amador Bodies Hem Pathologist Commnt PT INR Heparin Anti-Xa Level < 0.10 L Sodium Potassium Chloride Carbon Dioxide Anion Gap BUN Creatinine Estimated GFR BUN/Creatinine Ratio Glucose Lactic Acid 2.00 Calcium Phosphorus Magnesium Total Bilirubin Direct Bilirubin Indirect Bilirubin AST ALT Alkaline Phosphatase Total Protein Albumin Albumin/Globulin Ratio TSH Free T4 Urine Color Urine Turbidity Urine pH Ur Specific [place] Urine Protein Urine Glucose (UA) Urine Ketones Urine Blood Urine Nitrite Urine Bilirubin Urine Ictotest Urine Urobilinogen Ur Leukocyte Esterase Urine WBC (Auto) Urine RBC (Auto) Urine Bacteria (Auto) Hepatitis A IgM Ab Hep Bs Antigen Hep B Core IgM Ab Hepatitis C Antibody
[2021-11-04] MEDS: CEFEPIME/NS 2 GM/100 ML 2 GM/100 ML BAG IV SCH ×2 (10:28→15:24)
--- NOTE | 2021-11-04 11:57 | Electrocardiograph Report ---
[facility] Test Date: 2021-11-02 Test Time: 18:57:39 Pat Name: BRENDA KNUZ Department: Room: A267 1 Gender: F [employer] Developer: OSCAR : 1970 Requested By: TYRONE MAYER Order Number: [id number] Reading MD: Ariel Nielsen Measurements Intervals Nenzel Rate: 95 P: 43 NH: 135 QRS: -28 QRSD: 87 T: 19 QT: 463 QTc: 598 Interpretive Statements Sinus tachycardia Ventricular premature complex Sinus pause Probable left atrial enlargement Probable left ventricular hypertrophy Prolonged QT interval Compared to ECG 12/09/2020 12:44:40 Sinus pause or arrest now present Prolonged QT interval now present Sinus rhythm no longer present Electronically Signed On 11-04-2021 8:57:16 PDT by Ariel Nielsen
--- NOTE | 2021-11-04 13:56 | Progress Note ---
Assessment and Plan 51-year-old female with 1. Encephalopathy secondary to alcohol abuse 2. Alcohol induced acute liver injury 3. Abnormal gallbladder on imaging All appropriate lab work and imaging reviewed. Severe hepatic steatosis, mild perihepatic ascites, chronic pancreatitis. Abnormal gallbladder findings likely secondary to acute hepatic dysfunction and unlikely acute cholecystitis. Plan: 1. GI on board 2. continue monitoring LFTs, Bili 3. replace lytes 4. DT monitoring 5. no acute surgical intervention. will s/o Thank you. Please call with any questions or concerns. Subjective Date of service: 11/04/21 Narrative: Pt seen and examined. Feeling better today. Afebrile. No nausea or vomiting. Tolerating a diet. Denies abdominal pain. Objective Vital Signs - 12hr 11/04/21 11/04/21 11/04/21 02:00 02:31 03:00 Temperature Pulse Rate 96 H 94 H 92 H Pulse Rate [ From Monitor] Respiratory 19 18 19 Rate Respiratory Rate [tingling, burning to hands and feet] Blood Pressure 119/62 119/62 96/52 O2 Sat by Pulse 94 94 95 Oximetry 11/04/21 11/04/21 11/04/21 03:27 03:31 04:00 Temperature 98.8 F Pulse Rate 92 H 89 Pulse Rate [ From Monitor] Respiratory 19 15 Rate Respiratory Rate [tingling, burning to hands and feet] Blood Pressure 96/52 106/62 O2 Sat by Pulse 91 97 Oximetry 11/04/21 11/04/21 11/04/21 04:31 05:00 05:31 Temperature Pulse Rate 91 H 91 H 92 H Pulse Rate [ From Monitor] Respiratory 17 13 18 Rate Respiratory Rate [tingling, burning to hands and feet] Blood Pressure 106/62 102/64 106/62 O2 Sat by Pulse 96 97 93 Oximetry 11/04/21 11/04/21 11/04/21 05:35 06:00 06:01 Temperature Pulse Rate 98 H Pulse Rate [ From Monitor] Respiratory 14 22 Rate Respiratory 13 Rate [tingling, burning to hands and feet] Blood Pressure 106/62 O2 Sat by Pulse Oximetry 11/04/21 11/04/21 06:05 06:19 Temperature Pulse Rate Pulse Rate [ 93 H From Monitor] Respiratory 13 15 Rate Respiratory Rate [tingling, burning to hands and feet] Blood Pressure O2 Sat by Pulse 97 Oximetry - General physical appearance Narrative Exam: Gen.: Awake, alert, oriented x3. No apparent distress. ENT: Trachea midline. No lymphadenopathy. No scleral icterus or conjunctival pallor CV: S1, S2 present Respiratory: No audible wheezes Abdomen: Soft, nondistended, nontender. No rebound, rigidity, guarding Extremities: No clubbing, cyanosis, edema - Labs 11/04/21 04:41 11/04/21 04:41 Diabetes panel 11/03/21 11/04/21 Range/Units 12:46 04:41 Sodium 132 L D 134 L (137-145) mmol/L Potassium 2.1 L* D 2.0 L* (3.6-5.0) mmol/L Chloride 86.9 L (98-107) mmol/L Carbon Dioxide 38 H 39 H (22-30) mmol/L BUN 8 (7-17) mg/dL Creatinine < 0.2 L 0.4 L D (0.6-1.2) mg/dL Glucose 109 H (65-100) mg/dL Calcium 7.8 L (8.4-10.2) mg/dL AST 182 H (5-40) units/L ALT 51 (7-56) units/L Alkaline Phosphatase 134 H (35-129) units/L Total Protein 4.6 L (6.3-8.2) g/dL Albumin 2.6 L (3.9-5) g/dL Thyroid panel 11/03/21 Range/Units 12:46 TSH 0.574 (0.270-4.200) mlU/mL Calcium panel 11/03/21 11/04/21 Range/Units 23:26 04:41 Calcium 7.8 L (8.4-10.2) mg/dL Phosphorus 0.60 L* (2.5-4.5) mg/dL Albumin 2.6 L (3.9-5) g/dL Pituitary panel 11/03/21 11/03/21 11/04/21 Range/Units 12:46 12:46 04:41 Sodium 132 L D 134 L (137-145) mmol/L Potassium 2.1 L* D 2.0 L* (3.6-5.0) mmol/L Chloride 86.9 L (98-107) mmol/L Carbon Dioxide 38 H 39 H (22-30) mmol/L BUN 8 (7-17) mg/dL Creatinine < 0.2 L 0.4 L D (0.6-1.2) mg/dL Glucose 109 H (65-100) mg/dL Calcium 7.8 L (8.4-10.2) mg/dL TSH 0.574 (0.270-4.200) mlU/mL Adrenal panel 11/03/21 11/04/21 Range/Units 12:46 04:41 Sodium 132 L D 134 L (137-145) mmol/L Potassium 2.1 L* D 2.0 L* (3.6-5.0) mmol/L Chloride 86.9 L (98-107) mmol/L Carbon Dioxide 38 H 39 H (22-30) mmol/L BUN 8 (7-17) mg/dL Creatinine < 0.2 L 0.4 L D (0.6-1.2) mg/dL Glucose 109 H (65-100) mg/dL Calcium 7.8 L (8.4-10.2) mg/dL Total Bilirubin 13.70 H (0.1-1.2) mg/dL AST 182 H (5-40) units/L ALT 51 (7-56) units/L Alkaline Phosphatase 134 H (35-129) units/L Total Protein 4.6 L (6.3-8.2) g/dL Albumin 2.6 L (3.9-5) g/dL
--- NOTE | 2021-11-04 14:24 | Progress Note ---
Assessment and Plan Assessment and plan: Altered mental status History of present illness: 51-year-old female with known history of alcohol abuse presenting to the emergency room today for evaluation of changes in mental status for 1 day. Most of the history was provided by the significant order as patient is unable to provide coherent history at this time. Patient has been having nausea and vomiting and has been having decreased oral intake for the past 3 to 4 days. She has not had any alcohol in the past few days. Has been no fever or chills, no chest pain or shortness of breath, no hematemesis and no bright red blood per rectum. Work-up in the emergency room today, lab reveals multiple electrolyte abnor malities including potassium of 1.7 lactic acid of 6.8, magnesium of 1.6, sodium of 125. Ammonia of 145. Patient being admitted with acute encephalopathy, electrolyte imbalance and hyperammonemia. Past History Past Medical History: anemia, other (Neuropathy, hypokalemia) Past Surgical History: No surgical history Social history: smoking (Current daily smoker) Family history: no significant family history CT of the abdomen and pelvis reveals: 1. Marked heterogeneous hypoattenuation throughout the liver which may represent severe hepatic steatosis with areas of focal fatty sparing. Severe hepatitis could have a similar appearance. Underlying hepatic masses cannot be excluded. Further evaluation with multiphase liver mass CT or MRI is recommended. 2. There is a small volume of ascitic fluid along the superior aspect of the liver. 3. Cholelithiasis within a distended gallbladder with surrounding pericholecystic fluid. Findings can be seen in the setting of cholecystitis. Further evaluation with ultrasound is warranted. Gallbladder wall thickening may also be related to hepatic dysfunction. CTA of the head shows no acute findings Chest x-ray shows no acute findings. Abdominal ultrasound reveals: 1. Cholelithiasis and gallbladder sludge with minimal gallbladder wall thickening and trace pericholecystic fluid. Findings are nonspecific and may be secondary to intrinsic hepatocellular disease versus mild changes of cholecystitis. Further evaluation by nuclear medicine hepatobiliary scan recommended to evaluate for cystic duct patency. 2. Hepatomegaly and severe hepatic steatosis. 3. Small volume ascites. 4. Features of chronic pancreatitis. 11/03: Patient seen and examined today mental status improving some. Discussed with the significant other who informs me that the patient had significant bouts of alcoholism and hospitalization about this time last year for the same event. She does have a history of chronic pancreatitis. We are awaiting repeat labs to further evaluate her electrolyte abnormality. I did discuss with the nurse and also with the dietitian will change her diet. We will start her on a banana bag to be able to replace thiamine, folic acid and multivitamins. She denies increase girth. She received counseling on the importance of quitting alcohol use 15 mins. She verbalized understanding of the risk of continued use of alcohol. She does not endorse to any abdominal pain at this time. Will refer outpatient for evaluation of the gallbladder while she is clinically stable. 11/04: Patient seen and examined, still with Severe hypokalemia and hypophosphatemia we will replace both. Poor prognosis discussed with both the patient and the spouse in the setting of continued alcoholism. We will continue CU care at this time. 1. Acute hepatic encephalopathy 2. EtOH use disorder with delirium tremens now resolving 3. Hyperammonemia 4. Hepatitis secondary to EtOH use 5. Electrolyte imbalance-hypokalemia, hypomagnesemia 6. Severe hypokalemia 7. lactic acidosis 8. Hyponatremia- Awaiting repeat labs 9. Hypophosphatemia Plan: 1. Patient admitted and placed on IV fluid and empiric IV antibiotics.. 2. Electrolytes will be repleted and will monitor chemistry. 3. We will resume routine home medications. 4. We will monitor for alcohol withdrawal symptoms 5. Check LABS THIS AM 6. Check TSH DVT prophylaxis: Subcutaneous heparin CODE STATUS: Full code The high probability of a clinically significant, sudden or life threatening deterioration of the [gi] system(s) required my full and direct attention, in tervention and personal management. The aggregate critical care time was [35] minutes. This time is in addition to time spent performing reported procedures but includes the following: [x] Data Review and interpretation [x] Patient assessment and monitoring of vital signs [x] Documentation [x] Medication orders and management History Interval history: Patient seen and examined this morning sonya at the bedside along with the patient. No new complaints still with intermittent confusion Hospitalist Physical - Physical exam Narrative exam: VITAL SIGNS: Reviewed. GENERAL: The patient appears normally developed, jundiced Vital signs as documented. HEAD: No signs of head trauma. EYES: Pupils are equal. icteric sclera, Extraocular motions intact. Propotosis EARS: Hearing grossly intact. MOUTH: Oropharynx is normal. NECK: No adenopathy, no JVD. CHEST: Chest with clear breath sounds bilaterally. No wheezes, rales, or rhonchi. CARDIAC: Regular rate and rhythm. S1 and S2, without murmurs, gallops, or rubs. VASCULAR: No Edema. Peripheral pulses normal and equal in all extremities. ABDOMEN: Soft, non tender and non distended. No rebound or guarding, and no masses palpated. Bowel Sounds normal. MUSCULOSKELETAL: Good range of motion of all major joints. Extremities without clubbing, cyanosis or edema. NEUROLOGIC EXAM: Alert and oriented x 2. No focal sensory or strength deficits. Speech normal. Follows some commands. PSYCHIATRIC: Mood normal. SKIN: detail exam as documented in skin assessment - Constitutional Vitals: Temp Pulse Resp BP Pulse Ox 98.8 F 87 16 112/68 96 11/04/21 03:27 11/04/21 14:00 11/04/21 14:00 11/04/21 14:00 11/04/21 14:00 General appearance: Present: no acute distress, well-nourished HEART Score - HEART Score Troponin: Troponin T < 0.010 ng/mL (0.00-0.029) 11/02/21 20:05 Results - Labs CBC & Chem 7: 11/04/21 04:41 11/04/21 04:41 Labs: Laboratory Last Values WBC 15.1 K/mm3 (4.5-11.0) H 11/04/21 04:41 RBC 2.87 M/mm3 (3.65-5.03) L 11/04/21 04:41 Hgb 8.9 gm/dl (10.1-14.3) L D 11/04/21 04:41 Hct 26.8 % (30.3-42.9) L D 11/04/21 04:41 MCV 93 fl (79-97) 11/04/21 04:41 MCH 31 pg (28-32) 11/04/21 04:41 MCHC 33 % (30-34) 11/04/21 04:41 RDW 29.8 % (13.2-15.2) H 11/04/21 04:41 Plt Count 154 K/mm3 (140-440) 11/04/21 04:41 Add Manual Diff Complete 11/04/21 04:41 Total Counted 100 11/04/21 04:41 Seg Neuts % (Manual) 87.0 % (40.0-70.0) H 11/04/21 04:41 Band Neutrophils % 0 % 11/04/21 04:41 Lymphocytes % (Manual) 8.0 % (13.4-35.0) L 11/04/21 04:41 Reactive Lymphs % (Man) 0 % 11/04/21 04:41 Monocytes % (Manual) 4.0 % (0.0-7.3) 11/04/21 04:41 Eosinophils % (Manual) 1.0 % (0.0-4.3) 11/04/21 04:41 Basophils % (Manual) 0 % (0.0-1.8) 11/04/21 04:41 Metamyelocytes % 0 % 11/04/21 04:41 Myelocytes % 0 % 11/04/21 04:41 Promyelocytes % 0 % 11/04/21 04:41 Blast Cells % 0 % 11/04/21 04:41 Nucleated RBC % Not Reportable 11/04/21 04:41 Seg Neutrophils # Man 13.1 K/mm3 (1.8-7.7) H 11/04/21 04:41 Band Neutrophils # 0.0 K/mm3 11/04/21 04:41 Lymphocytes # (Manual) 1.2 K/mm3 (1.2-5.4) 11/04/21 04:41 Abs React Lymphs (Man) 0.0 K/mm3 11/04/21 04:41 Monocytes # (Manual) 0.6 K/mm3 (0.0-0.8) 11/04/21 04:41 Eosinophils # (Manual) 0.2 K/mm3 (0.0-0.4) 11/04/21 04:41 Basophils # (Manual) 0.0 K/mm3 (0.0-0.1) 11/04/21 04:41 Metamyelocytes # 0.0 K/mm3 11/04/21 04:41 Myelocytes # 0.0 K/mm3 11/04/21 04:41 Promyelocytes # 0.0 K/mm3 11/04/21 04:41 Blast Cells # 0.0 K/mm3 11/04/21 04:41 WBC Morphology Not Reportable 11/04/21 04:41 Hypersegmented Neuts Not Reportable 11/04/21 04:41 Hyposegmented Neuts Not Reportable 11/04/21 04:41 Hypogranular Neuts Not Reportable 11/04/21 04:41 Smudge Cells Not Reportable 11/04/21 04:41 Toxic Granulation Not Reportable 11/04/21 04:41 Toxic Vacuolation Not Reportable 11/04/21 04:41 Dohle Bodies Not Reportable 11/04/21 04:41 Pelger-Huet Anomaly Not Reportable 11/04/21 04:41 Sarah Rods Not Reportable 11/04/21 04:41 Platelet Estimate Consistent w auto 11/04/21 04:41 Clumped Platelets Not Reportable 11/04/21 04:41 Plt Clumps, EDTA Not Reportable 11/04/21 04:41 Large Platelets Not Reportable 11/04/21 04:41 Giant Platelets Not Reportable 11/04/21 04:41 Platelet Satelliting Not Reportable 11/04/21 04:41 Plt Morphology Comment Not Reportable 11/04/21 04:41 RBC Morphology Not Reportable 11/04/21 04:41 Dimorphic RBCs Not Reportable 11/04/21 04:41 Polychromasia Not Reportable 11/04/21 04:41 Hypochromasia Not Reportable 11/04/21 04:41 Poikilocytosis Not Reportable 11/04/21 04:41 Anisocytosis 3+ 11/04/21 04:41 Microcytosis Not Reportable 11/04/21 04:41 Macrocytosis Not Reportable 11/04/21 04:41 Spherocytes Not Reportable 11/04/21 04:41 Pappenheimer Bodies Not Reportable 11/04/21 04:41 Sickle Cells Not Reportable 11/04/21 04:41 Target Cells 1+ 11/04/21 04:41 Tear Drop Cells Not Reportable 11/04/21 04:41 Ovalocytes Not Reportable 11/04/21 04:41 Stomatocytes 1+ 11/04/21 04:41 Helmet Cells Not Reportable 11/04/21 04:41 Zarate-Niland Bodies Not Reportable 11/04/21 04:41 Chuckey Rings Not Reportable 11/04/21 04:41 [place] Cells Not Reportable 11/04/21 04:41 Bite Cells Not Reportable 11/04/21 04:41 Crenated Cell Not Reportable 11/04/21 04:41 Elliptocytes Not Reportable 11/04/21 04:41 Acanthocytes (Spur) Not Reportable 11/04/21 04:41 Rouleaux Not Reportable 11/04/21 04:41 Hemoglobin C Crystals Not Reportable 11/04/21 04:41 Schistocytes Not Reportable 11/04/21 04:41 Malaria parasites Not Reportable 11/04/21 04:41 [place] Bodies Not Reportable 11/04/21 04:41 Hem Pathologist Commnt No 11/04/21 04:41 PT 26.4 Sec. (12.2-14.9) H 11/03/21 12:46 INR 2.06 (0.87-1.13) H 11/03/21 12:46 Heparin Anti-Xa Level < 0.10 U.I./ml (0.3-0.7) L 11/04/21 04:41 ABG pH 7.545 pH Units (7.350-7.450) H 11/02/21 21:08 ABG pCO2 54.3 mm Hg 11/02/21 21:08 ABG pO2 88.2 mm Hg (80.0-90.0) 11/02/21 21:08 ABG HCO3 45.9 mmol/L (20.0-26.0) H 11/02/21 21:08 ABG O2 Saturation 97.3 % (95.0-99.0) 11/02/21 21:08 ABG O2 Content 14.2 (0.0-44) 11/02/21 21:08 ABG Base Excess 20.7 mmol/L (-2.0-3.0) H 11/02/21 21:08 ABG Hemoglobin 10.8 gm/dl (12.0-16.0) L 11/02/21 21:08 ABG Carboxyhemoglobin 3.5 % (0.0-5.0) 11/02/21 21:08 ABG Methemoglobin 0.7 % (0.0-1.5) 11/02/21 21:08 Oxyhemoglobin 93.1 % (95.0-99.0) L 11/02/21 21:08 FiO2 32 % 11/02/21 21:08 Sodium 134 mmol/L (137-145) L 11/04/21 04:41 Potassium 2.0 mmol/L (3.6-5.0) L* 11/04/21 04:41 Chloride 86.9 mmol/L (98-107) L 11/04/21 04:41 Carbon Dioxide 39 mmol/L (22-30) H 11/04/21 04:41 Anion Gap 10 mmol/L 11/04/21 04:41 BUN 8 mg/dL (7-17) 11/04/21 04:41 Creatinine 0.4 mg/dL (0.6-1.2) L D 11/04/21 04:41 Estimated GFR > 60 ml/min 11/04/21 04:41 BUN/Creatinine Ratio 20 % 11/04/21 04:41 Glucose 109 mg/dL (65-100) H 11/04/21 04:41 POC Glucose 133 mg/dL (70-105) H 11/02/21 20:02 Lactic Acid 2.00 mmol/L (0.7-2.0) 11/04/21 04:41 Calcium 7.8 mg/dL (8.4-10.2) L 11/04/21 04:41 Phosphorus 0.60 mg/dL (2.5-4.5) L* 11/03/21 23:26 Magnesium 2.10 mg/dL (1.7-2.3) 11/03/21 12:46 Total Bilirubin 13.70 mg/dL (0.1-1.2) H 11/04/21 04:41 Direct Bilirubin 7.9 mg/dL (0-0.2) H 11/03/21 12:46 Indirect Bilirubin 4.2 mg/dL 11/03/21 12:46 AST 182 units/L (5-40) H 11/04/21 04:41 ALT 51 units/L (7-56) 11/04/21 04:41 Alkaline Phosphatase 134 units/L (35-129) H 11/04/21 04:41 Ammonia 145.0 umol/L (25-60) H 11/02/21 20:05 Total Creatine Kinase 134 units/L (30-135) 11/02/21 20:05 Troponin T < 0.010 ng/mL (0.00-0.029) 11/02/21 20:05 Total Protein 4.6 g/dL (6.3-8.2) L 11/04/21 04:41 Albumin 2.6 g/dL (3.9-5) L 11/04/21 04:41 Albumin/Globulin Ratio 1.3 % 11/04/21 04:41 Lipase 17 units/L (13-60) 11/02/21 20:05 TSH 0.574 mlU/mL (0.270-4.200) 11/03/21 12:46 Free T4 1.56 ng/dL (0.76-1.46) H 11/03/21 12:46 Urine Color [place] (Yellow) 11/03/21 18:00 Urine Turbidity Clear (Clear) 11/03/21 18:00 Urine pH 7.0 (5.0-7.0) 11/03/21 18:00 Ur Specific [place] 1.013 (1.003-1.030) 11/03/21 18:00 Urine Protein <15 mg/dl mg/dL (Negative) 11/03/21 18:00 Urine Glucose (UA) Neg mg/dL (Negative) 11/03/21 18:00 Urine Ketones Neg mg/dL (Negative) 11/03/21 18:00 Urine Blood Neg (Negative) 11/03/21 18:00 Urine Nitrite Neg (Negative) 11/03/21 18:00 Urine Bilirubin Mod (Negative) 11/03/21 18:00 Urine Ictotest Positive (Negative) 11/03/21 18:00 Urine Urobilinogen 4.0 mg/dL (<2.0) 11/03/21 18:00 Ur Leukocyte Esterase Neg (Negative) 11/03/21 18:00 Urine WBC (Auto) 2.0 /HPF (0.0-6.0) 11/03/21 18:00 Urine RBC (Auto) 2.0 /HPF (0.0-6.0) 11/03/21 18:00 Urine Bacteria (Auto) 1+ /HPF (Negative) 11/03/21 18:00 Plasma/Serum Alcohol < 0.01 % (0-0.07) 11/02/21 20:05 Hepatitis A IgM Ab Non-reactive (NonReactive) 11/03/21 12:46 Hep Bs Antigen Non-reactive (Negative) 11/03/21 12:46 Hep B Core IgM Ab Non-reactive (NonReactive) 11/03/21 12:46 Hepatitis C Antibody Non-reactive (NonReactive) 11/03/21 12:46 Microbiology: Microbiology 11/02/21 21:48 Peripheral/Venous Blood Culture - Preliminary NO GROWTH AFTER 24 HOURS 11/02/21 21:48 Peripheral/Venous Blood Culture - Preliminary NO GROWTH AFTER 24 HOURS [place]/IV: Voiding Method Bedside Commode Active Medications - Current Medications Current Medications: Generic Name Dose Route Start Last Admin Trade Name Freq PRN Reason Stop Dose Admin Heparin Sodium (Porcine) 5,000 unit 11/03/21 06:00 11/04/21 13:58 Heparin 5,000 Unit/1 Ml Vial SUB-Q 5,000 unit Q8HR JANICE Administration Sodium Chloride 1,000 mls @ 75 mls/hr 11/03/21 01:00 11/03/21 06:30 Nacl 0.9% 1000 Ml IV 75 mls/hr DIRECT JANICE Administration Cefepime HCl 2 gm in 100 mls @ 200 mls/hr 11/03/21 16:00 11/04/21 10:28 Cefepime/Ns 2 Gm/100 Ml IV 200 mls/hr Q8H JANICE Administration Protocol Vancomycin HCl 1,250 mg/ 275 mls @ 166.667 mls/hr 11/03/21 17:00 11/04/21 05:35 Sodium Chloride IV 166.667 mls/hr Q12H JANICE Administration Potassium Phosphate 40 mmol/ 513.3333 mls @ 83 mls/hr 11/04/21 08:30 11/04/21 10:29 Sodium Chloride IV 11/04/21 14:41 83 mls/hr ONCE ONE Administration Ibuprofen 600 mg 11/03/21 00:51 11/03/21 18:00 Ibuprofen 600 Mg Tab PO 600 mg Q6H PRN Administration Pain, Mild (1-3) Lorazepam 2 mg 11/03/21 08:00 Lorazepam 2 Mg/Ml Vial IV Q1H PRN CIWA-Ar 8-15 Lorazepam 4 mg 11/03/21 08:00 Lorazepam 2 Mg/Ml Vial IV Q1H PRN CIWA-Ar 16-25 Lorazepam 4 mg 11/03/21 08:00 Lorazepam 2 Mg/Ml Vial IV Q15MIN PRN CIWA-Ar >25 Morphine Sulfate 2 mg 11/03/21 00:51 11/04/21 05:35 Morphine 2 Mg/1 Ml Inj IV 2 mg Q4H PRN Administration Pain, Moderate (4-6) Morphine Sulfate 4 mg 11/03/21 00:51 Morphine 4 Mg/1 Ml Inj IV Q4H PRN Pain , Severe (7-10) Ondansetron HCl 4 mg 11/04/21 03:14 11/04/21 05:35 Ondansetron 4 Mg/2 Ml Inj IV 4 mg Q8H PRN Administration Nausea And Vomiting Sodium Chloride 10 ml 11/03/21 10:00 11/04/21 10:29 Sodium Chloride 0.9% 10 Ml Flush Syringe IV 10 ml BID JANICE Administration Sodium Chloride 10 ml 11/03/21 00:51 Sodium Chloride 0.9% 10 Ml Flush Syringe IV PRN PRN LINE FLUSH Nutrition/Malnutrition Assess - Dietary Evaluation Nutrition/Malnutrition Findings: Nutrition Notes Start: 11/03/21 09:55 Freq: Status: Active Protocol: Document 11/03/21 09:55 CM (Rec: 11/03/21 10:14 CM [id number]) Co-Sign 11/03/21 09:55 WW Nutrition Notes Need for Assessment generated from: MD Order,Education Initial or Follow up Brief Note Other Pertinent Diagnosis AMS, Hyper ammonemia, Elevated LFTs, Lactic Acidosis, N/V, decreased intake Current Diet Regular Diet Labs/Tests 11/03: Na 125 K 1.7 Cl 62.3 CO2 42 Mg 1.6 AST 176 ALP 192 Pertinent Medications 11/03: Reviewed Height 5 ft 4 in Weight 72.575 kg [place] Body Weight (kg) 54.54 BMI 27.4 Intake Prior to Admission Good Weight change and time frame No unintentional wt loss [employer] per malnutrition screening tool assessment. Weight Status Overweight Subjective/Other Information RD consult for diet education. Pt currently in IMCU with AMS at this time - pt not an appropriate candidate for diet education. Currently on regular diet - given medical condition recommend changing to cardiac diet. Recommend Mg and K repletion protocol - check Phos (Concern for risk of refeeding syndrome). Recommend Thiamine and Folic Acid supplementation. Spoke with physician to express concerns and confirm recommendations. Noted N/V/ decreased intake x 3-4 days Percent of energy/protein needs met: Regular diet provides 2289kcal /89g PRO q day Burn Absent Trauma Absent GI Symptoms Nausea,Vomiting Food Allergy No Skin Integrity/Comment WNL #1 Nutrition Diagnosis Altered nutrition-related laboratory values Etiology Hepatic dysfunction As Evidenced by Signs and Symptoms AST 176, ALP 192 Is patient on ventilator? No Is Patient Ambulatory and/or Out of Bed No REE-([facility]-confined to bed) 1600.824 Kcal/Kg value to use for calculation 25 Approximate Energy Requirements Using 1814 kcal/Kg Calculation Used for Recommendations Kcal/kg Additional Notes Protein: 0.6-0.8g/kg ABW; 44- 58g PRO q day Fluids: 1mL/kcal or per MD Nutrition Intervention Change Diet Order: Recommend changing diet order to cardiac diet Goal #1 MNT to aid in normalizing altered lab values Follow-Up By: 11/05/21 Additional Comments Monitor need for diet education, nutrition-related lab values, and %PO intake
[2021-11-04 21:17] VITALS: BP 109/63
[2021-11-09 07:44] LABS: ANA Screen, IFA Negative (Negative)
== END 2021-11-04 23:21 | disposition home or self-care (01) | DRG 441 ==
LOC: ED 18:39 → IMCU 23:46
PROVIDERS: ADMIT Internal Medicine Geriatric Medicine; ATTEND Internal Medicine
DX: K72.00 Acute and subacute hepatic failure without coma (principal); G93.41 Metabolic encephalopathy; E87.2 Acidosis; F10.131 Alcohol abuse with withdrawal delirium; E87.1 Hypo-osmolality and hyponatremia; F10.10 Alcohol abuse, uncomplicated; E87.6 Hypokalemia; E86.0 Dehydration; K70.11 Alcoholic hepatitis with ascites; D69.6 Thrombocytopenia, unspecified; E83.42 Hypomagnesemia; K29.70 Gastritis, unspecified, without bleeding
CPT/HCPCS: 36415; 70450; 71045; 74177; 76705; 80048; 80053; 80074; 80076; 80320; 81001; 82140; 82550; 82803; 82962; 83520; 83690; 83735; 84100; 84439; 84443; 84484; 85007; 85025; 85027; 85520; 85610; 86038; 86235; 87040; 87641; 93005; 94760; 99406; G0378; J3490; J7510; G0480; J0692; J1644; J2270; J2405; J3370; J3411; J3475; J3480; J7030; J7040; J7050; Q9967